=== PATIENT | male | born 1955 | race Caucasian/White ===

== ENCOUNTER 2019-03-11 10:14 | Inpatient (IN) ==
[2019-03-11] MEDS ORDERED: Pregabalin 75 MG CAPSULE PO ONE (10:41)
[2019-03-11] MEDS ORDERED: Famotidine 20 MG/2 ML VIAL IVP ONE (10:41)
[2019-03-11] MEDS ORDERED: Albuterol 2.5 MG/3 ML NEBULIZER IH ONE (10:42)
[2019-03-11] MEDS ORDERED: CeFAZolin Syr 3,000MG/30 ML 3,000 MG/30 ML SYRINGE IVPB ONE (10:42)
[2019-03-11] MEDS ORDERED: Acetaminophen IV 1,000 MG/100 ML INFUS..BTL IVPB ONE (10:42)
[2019-03-11] MEDS ORDERED: traMADol 50 MG TABLET PO ONE (10:42)
[2019-03-11] MEDS ORDERED: Ringers Solution, Lactated 1,000 ML IVC SCH ×2 (10:45)
--- NOTE | 2019-03-11 11:35 | Anesthesia Evaluation PreOp ---
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, on coumadin) Pulmonary History: JEAN Dx, Other (Home oxygen at night, on BiPap) LETTUCE CUTTER History: Denies Any Significant HX Other Medical History: Diabetes Type II, GERD, Other (Super Morbid Obesity) Anesthesia History: No Prior Anesthetic Complications Alcohol Use: none Drug use: none Medications and Allergies Amitriptyline HCl 25 mg PO QPM 04/17/18 [History] Atorvastatin Calcium [Lipitor] 40 mg PO DAILY 04/17/18 [History] Carvedilol [Coreg] 25 mg PO BID 04/17/18 [History] Cholecalciferol (Vitamin D3) [Vitamin D3] 5,000 unit PO DAILY 04/17/18 [History] Fenofibrate Nanocrystallized [Fenofibrate] 145 mg PO DAILY 04/17/18 [History] Furosemide [Lasix] 40 mg PO DAILY 04/17/18 [History] Multivitamin [Multivitamins] 1 each PO DAILY 04/17/18 [History] Omeprazole [PriLOSEC] 40 mg PO DAILY 04/17/18 [History] Testosterone [Androgel] 10 gm TD DAILY 04/17/18 [History] Ascorbic Acid [Vitamin C] 500 mg PO DAILY 07/15/18 [History] Lisinopril [Zestril] 5 mg PO DAILY 07/15/18 [History] Glyburide/Metformin HCl [Glyburide-Metformin 5-500 mg] 1 tab PO QPM 09/24/18 [History] Glyburide/Metformin HCl [Glyburide-Metformin 5-500 mg] 2 tab PO QAM 09/24/18 [History] Liraglutide [Victoza 2-Jose Cruz] 3 mg SQ Q48H 09/24/18 [History] Metformin HCl 500 mg PO QPM 09/24/18 [History] Pioglitazone HCl [Actos] 45 mg PO DAILY 09/24/18 [History] Polyethylene Glycol 3350 [MiraLAX] 17 gm PO DAILY PRN 09/24/18 [History] Aspirin Enteric Coated [Aspirin EC] 81 mg PO DAILY 11/17/18 [History] Dapagliflozin Propanediol [Farxiga] 5 mg PO DAILY 11/17/18 [History] Warfarin [Coumadin] 5 mg PO MOWE 11/17/18 [History] Ferrous Sulfate [Iron] 325 mg PO DAILY 03/11/19 [History] Oglesby-3/Dha/Epa/Fish Oil [Fish Oil 1,000 mg Softgel] 1 cap PO DAILY 03/11/19 [History] Warfarin [Coumadin] 7.5 mg PO SUTUTHFRSA 03/11/19 [History] Allergy/AdvReac Type Severity Reaction Status Date / Time No Known Allergies Allergy Verified 03/11/19 11:05 - Meds/Allergy Pre-op Review Medications Reviewed: Yes Allergies Reviewed: Yes Beta Blockers on Current Med List: Yes (Coreg today 0800) Anesthesia Results - Labs Laboratory Tests 09/25/18 01/19/19 02/06/19 02:28 14:21 10:21 Hgb 10.4 L Hct 34.8 L Plt Count 531 H INR 1.3 Sodium 133 L Potassium BUN 21 Creatinine 1.03 03/08/19 15:15 Hgb Hct Plt Count INR Sodium Potassium 4.0 BUN Creatinine - Imaging EKG: report reviewed (SR) Additional studies: ECHO 2019 EF 55% Anesthesia Exam O2 Sat Height 1.85 m Height 1.85 m Weight 172.365 kg Weight 172.365 kg O2 Sat by Pulse Oximetry 94 O2 Sat by Pulse Oximetry 94 Vital Signs Temp Pulse Resp BP Pulse Ox 97.7 F 85 18 103/53 94 03/11/19 11:01 03/11/19 11:01 03/11/19 11:01 03/11/19 11:01 03/11/19 11:01 Height: 6'1 Weight: 380 lbs NPO (# of Hours): MN Pain Scale: 0 - HEENT Pupil (Motor): Pupils equal, EOMI Mallampati: II Teeth: Normal Oral Opening: Greater than 3 - LETTUCE CUTTER LOC: Oriented LETTUCE CUTTER Motor: Normal RUE, Normal LUE, Normal RLE, Normal LLE, Normal Face LETTUCE CUTTER Sensory: Normal: RUE, LUE, RLE, LLE, Face - Cardiac Rhythm: Regular Murmur: None JVD: No Carotid Bruit: No - Pulmonary Breath Sounds: bilateral Clear Respiratory Effort: Symmetrical Anesthesia Assess/Plan ASA Score: 3 (MO HTN CAD JEAN DM DVT Factor V Leiden) Level of consciousness: Cooperative, Oriented Anesthetic Plan: General Monitoring Plan: Standard Monitors Recovery Plan: PACU (Discussed GA, agrees to proceed)
[2019-03-11] MEDS ORDERED: *HR* Promethazine 25 MG/ML VIAL IVP PRN (11:42)
[2019-03-11] MEDS ORDERED: Ondansetron 4 MG/2 ML VIAL IVP ONE (11:42)
[2019-03-11] MEDS ORDERED: *HR* OxyCODONE Immed Rel 5 MG TABLET PO PRN (11:42)
[2019-03-11] MEDS ORDERED: *HR* HYDROmorphone (PF) 1 MG/ML SYRINGE IVP PRN (11:42)
[2019-03-11] MEDS ORDERED: Dexamethasone 4 MG/ML VIAL ONE (11:51)
--- NOTE | 2019-03-11 12:27 | History & Physical Report ---
Date of Encounter: 03/11/19 Time of Encounter: 12:10 24 Hour HP Update - Instructions Instructions: If the History and Physical is less than 30 days old and was completed prior to A.M. admission and or procedure and has NOT been updated on calendar day of procedure please complete this update prior to performing procedure. - Update Patient reports changes in Medical Condition: No Changes in examination, assessment, or condition: No Changes in Medication: No Preop tests/diagnostics Reviewed: Yes Surgery Remains Indicated: Yes Consent for Planned Operative Procedure(s) Verified: Yes - Attending Attestation proceed
[2019-03-11] MEDS ORDERED: Bupivacaine/EPI 1:200k 0.25%PF 30 ML VIAL ONE (12:37)
[2019-03-11] MEDS ORDERED: D5% in Water 1,000 ML IVC PRN (12:47)
[2019-03-11] MEDS ORDERED: Dextrose Gel 15 GM/37.5 ML TUBE PO PRN ×2 (12:47)
[2019-03-11] MEDS ORDERED: *HR* Dextrose 50 % in Water (Syg) 50 ML SYRINGE IVP PRN (12:47)
[2019-03-11] MEDS ORDERED: *HR* Propofol 200 MG/20 ML VIAL IVP ONE (13:09)
[2019-03-11] MEDS ORDERED: Warfarin perPT PO PRN (13:30)
[2019-03-11] MEDS ORDERED: *HR* PHENYLEPHRINE 1,000 MCG/10 ML SYRINGE IVP ONE (13:38)
[2019-03-11] MEDS ORDERED: EPHEDrine 50 MG/ML VIAL ONE (13:48)
--- NOTE | 2019-03-11 15:31 | Operative Note ---
Date of procedure: 03/11/19 Pre-op diagnosis: right foot charcot, failed hardware, Post-op diagnosis: same Procedure: Application of multiplane external fixator right LE Fusion of the talonavicular joint with osteotomy Fusion of the calcaneocuboid joint with osteotomy Removal of hardware Implants: SEAL ex-fix Complications: none Anesthesia: GETA Local Anesthetics: 0.25% Sensorcaine HCL with Epinephrine 1:200,000 SubQ (cc) Surgeon: Daniel Barahona Was there an radiology physician assistant present: No Estimated blood loss (cc): 15 Tourniquet Time (Minutes): 109 Specimen: none Condition: stable Disposition: PACU Procedure in Detail: 63 year old diabetic male with right charcot arthropathy and previous surgery being brought to the operating room for the above procedures in an effort to try to stabilize his right foot. His left foot had significant motion and collapse through the hindfoot and ankle. Nature of the procedure, risks versus benefits potential complications consequences of surgery and his condition discussed at length. No guarantees were made that his limb would be salvageable and it was explained to the patient this is a staged procedure he is going to require multiple surgical procedures in an effort to try to salvage his foot if it is even possible. It was explained to the patient that he could lose his leg. All questions have been answered and the informed consent was signed. Patient was taken from the preoperative holding area and placed on the operating room table in the supine position. The right foot was scrubbed prepped and draped in the usual sterile fashion and thigh tourniquet was inflated to 300 mmHg and the following procedures began. Removal of right foot hardware. C-arm was utilized to confirm the location of the hardware which was put in from previous surgery. An incision was made medially and blunt dissection was carried out down to the level of the bone and the head of the screw was found in the navicular and was removed without i ncident. A separate incision was made on the dorsum of the midfoot and blunt dissection carried out down the level of the head of the screw which was then removed without incident. Attention was then directed laterally between the fourth and fifth metatarsals were an incision was made blunt dissection carried out down to the level of bone where the screw going from the metatarsal into the cuboid was found and removed without incident. The calcaneal screw was left alone as it was not interfering the the surgery. Right Talonavicular and Calcaneocuboid joint arthrodesis. Attention was then d irected back medially and the incision was extended proximally and distally. Soft tissue was freed from the bone across the talonavicular articulations and the sagittal saw blade was use to resect a wedge of bone through the midfoot and the midfoot was able to then be manipulated more in line with the hindfoot and it was pinned with 0.62 mm K wires. C-arm was utilized to confirm position and alignment. There was good apposition of the talonavicular and cc joint fusion zones. The external fixation frame was then assembled on the back table and the next procedure began. Application of multiplane external fixator right lower extremity. The external fixator was assembled and applied to the patient's right lower extremity being able to fit at least two finger breadths circumferentially around his leg and foot. Two wires were thrown distally in the calcaneus and tensioned appropriately. Next attention was directed to the proximal ring where a two skinny wires were thrown into the tibia securing his leg to the frame. Two skinny wire were then thrown in the middle ring and wires were tensioned appropriately. Two calcaneal wires were thrown and a wire across the lateral column of the foot capturing the cuboid and stabilizing the lateral column. Wires were tensioned appropriately. Wires were then thrown across the metatarsals and midfoot and walked backwards to create tension, wires were tensioned appropriately to maintain reduced position of the forefoot relative to the midfoot/rear foot. The patient's right foot clinically was stabilized with the multiplane external fixator. Marcaine with epinephrine was then injected around the pin sites. Xeroform was applied around all pin sites as well as 4x4 gauze, abdominal pads, kirt, kerlix and JONO wraps. C-arm was utilized intraoperatively to confirm placement and alignment of the wires and pins. The tourniquet was deflated prior to application of the bandages and adequate hemostasis was present. Patient tolerated the anesthesia and the procedure well and was escorted to the recovery room with vital signs stable and vascular status intact to the right foot. Instructed to remain non-wb to the right lower extremity. Patient admitted to observation on the floor.
--- NOTE | 2019-03-11 16:21 | Anesthesia Evaluation Post Op ---
Date of Encounter: 03/11/19 Time of Encounter: 16:20 - Vital Signs Vital Signs: Vital Signs/O2 Sat, Most Current Temp Pulse Resp BP Pulse Ox 97.3 F L 61 18 144/67 96 03/11/19 16:19 03/11/19 16:19 03/11/19 16:19 03/11/19 16:19 03/11/19 16:19 - Lungs Lungs: Clear Ascult./Percussion - Airway Airway: Non-obstructed - Cardiovascular Regular Rate - Mental Status Mental Status: Alert & Oriented, Answers Appropriately - Pain Pain Scale: 0 Pain Scale used: Numeric (1 - 10) - Nausea Vomiting Nausea Vomiting: Not Present - Hydration Hydration: Ice chips, Has not voided - Discharge PostOp Status: Transfer Patient to floor
[2019-03-11 17:36] LABS: INR 2.2; Prothrombin Time 25.1 Seconds (9.4-12.1)
[2019-03-11] MEDS: *HR* Metformin 500 MG TABLET PO SCH (17:53)
[2019-03-11] MEDS: *HR* GlyBURIDE 5 MG TABLET PO SCH (17:54)
[2019-03-11] MEDS ORDERED: *HR* Warfarin 7.5 MG TABLET PO SCH (18:00)
[2019-03-11] MEDS: Insulin LISPRO 300 UNITS/3 ML VIAL SQ SCH (18:01)
[2019-03-11] MEDS: ceFAZolin 3,000 MG in D5% in Water 100 ML IVPB SCH (18:05)
--- NOTE | 2019-03-11 19:27 | Podiatry Progress Note ---
Date of Encounter: 03/11/19 Time of Encounter: 06:40 Subjective Interval history: s/p charcot reconstruction right foot. patient resting comfortably. says pain is controlled. understands to remain non-wb to the right LE. foot in good alignment. ex-fix in place with no pistoning. c/w with coumadin. f/u PT, OT and social work. when he does leave he will need twice weekly dressing changes consisting of xeroform around the pin sites, 4x4 gauze, kirt and JONO wraps. Objective - Vital Signs Vital Signs: Vital Signs Temp Pulse Resp BP Pulse Ox 03/11/19 18:04 98.1 F 61 16 120/74 99 03/11/19 17:26 98.0 F 61 14 133/76 99 03/11/19 17:04 97.7 F 61 16 147/71 100 03/11/19 16:47 97.8 F 65 20 134/79 100 03/11/19 16:19 97.3 F L 61 18 144/67 96 03/11/19 16:09 61 18 142/69 97 03/11/19 15:59 61 16 135/67 97 03/11/19 15:49 97.4 F L 61 16 123/84 100 03/11/19 11:01 97.7 F 85 18 103/53 94 Intake and Output 03/11/19 03/11/19 03/11/19 07:59 15:59 23:59 Intake Total 0 / 0 Output Total 15 / 15 Balance -15 / -15 Intake: IV Fluids 0 / 0 Ancef Syringe 3,000 MG/30 ML 3, 0 / 0 000 mg In 30 ml @ 200 mls/hr IVPB PREOP ONE Rx#:[id number] Output: Estimated Blood Loss 15 / 15 Other: Weight 172.365 kg Blood Glucose* 164 168 Patient Weight 03/11/19 23:59 Weight 172.365 kg - Lab Labs: Abnormal lab results PT 25.1 Seconds (9.4-12.1) H 03/11/19 17:06 POC Glucose 178 mg/dL (70-99) H 03/11/19 10:24 Consult Discharge Plan - Plan Referrals: Ed Holley MD [Primary Care Provider] -
[2019-03-12] MEDS: ceFAZolin 3,000 MG in D5% in Water 100 ML IVPB SCH (02:18)
[2019-03-12 05:21] LABS: INR 2.7; Prothrombin Time 30.6 Seconds (9.4-12.1)
[2019-03-12] MEDS: Insulin LISPRO 300 UNITS/3 ML VIAL SQ SCH ×3 (08:23→16:59)
[2019-03-12] MEDS: Fenofibrate 54 MG TABLET PO SCH (08:23)
[2019-03-12] MEDS: *HR* Pioglitazone 45 MG TABLET PO SCH (08:23)
[2019-03-12] MEDS: *HR* GlyBURIDE 5 MG TABLET PO SCH ×2 (08:23→18:09)
[2019-03-12] MEDS: Furosemide 40 MG TABLET PO SCH (08:23)
[2019-03-12] MEDS: *HR* Metformin 500 MG TABLET PO SCH ×2 (08:23→18:09)
[2019-03-12] MEDS: Cholecalciferol (D-3) 1,000 UNIT (25MCG) TABLET PO SCH (08:23)
[2019-03-12] MEDS: Aspirin 81 MG TAB.CHEW PO SCH (08:23)
[2019-03-12] MEDS: Ascorbic Acid 500 MG TABLET PO SCH (08:23)
--- NOTE | 2019-03-12 13:44 | Podiatry Progress Note ---
Date of Encounter: 03/12/19 Time of Encounter: 13:40 - Assessment and Plan (1) Charcot ankle Current Visit: Yes Status: Acute Assessment: S/P Application of multiplane external fixator right LE, Fusion of the talonavicular joint with osteotomy, Fusion of the calcaneocuboid joint with osteotomy, and Removal of hardware with Dr. Barahona on 03/11/19 Plan: Admit Inpatient Pending ECF/swing bed placement, social work consulted Awaiting PT/OT recommendations Hospitalist consulted for medical management, patient with history of a.fib on coumadin, COPD, DM, and HTN Continue NWB status RLE Will need discharged with norco, zofran, and doxycycline x 14 days when ready for discharge Qualifiers: Qualified Code(s): M14.671 - Charcot's joint, right ankle and foot Subjective Principal diagnosis: Charcot foot Interval history: Patient awake in bed. Alert and oriented x 3. Denies fevers, chills, nausea, vomiting, or diarrhea. Reports pain when working with therapy to sides/ribcage. States it hurts when he coughs. Denies any calf pain, chest pain, or shortness of breath. Denies placing weight to RLE. States therapy is to stop by in the AM to work with slide board. Reports he would prefer to go to rehab as he does not think he can manage at home. No other questions or concerns at this time. Objective - Vital Signs Vital Signs: Vital Signs Temp Pulse Resp BP Pulse Ox 03/12/19 12:41 97.7 F 80 18 138/59 97 03/12/19 07:00 97.5 F L 60 18 105/65 98 03/12/19 04:46 98.1 F 60 16 118/62 93 03/12/19 00:17 97.4 F L 63 18 135/63 93 03/11/19 18:04 98.1 F 61 16 120/74 99 03/11/19 17:26 98.0 F 61 14 133/76 99 03/11/19 17:04 97.7 F 61 16 147/71 100 03/11/19 16:47 97.8 F 65 20 134/79 100 03/11/19 16:19 97.3 F L 61 18 144/67 96 03/11/19 16:09 61 18 142/69 97 07/25/19 15:59 61 16 135/67 97 03/11/19 15:49 97.4 F L 61 16 123/84 100 Intake and Output 03/11/19 03/12/19 03/12/19 23:59 07:59 15:59 Intake Total 460 / 460 600 / 1680 1080 / 1680 Output Total 300 / 315 950 / 950 Balance 160 / 145 -350 / 730 1080 / 730 Intake: IV Fluids 100 / 100 Ancef 3,000 MG In Dextrose 5% 100 / 100 100 ML @ 200 mls/hr IVPB Q8H DIPESH Rx#:[id number] Oral 360 / 360 600 / 1680 1080 / 1680 Output: Urine 300 / 300 950 / 950 Other: Meal Dinner Lunch Percent of Meal Consumed 100% 100% Weight 172.4 kg Blood Glucose* 256 174 Patient Weight 03/12/19 23:59 Weight 172.4 kg - Exam Exam: Constitiutional: Alert and oriented x 3. Well nourished. No acute distress noted Vascular: RLE ex-fix in place, CFT < 3 seconds to all digits, no calf pain with squeeze Neurologic: Diminished sensation to touch Dermatologic: External fixator to RLE. Foot in good alignment. No strike through noted. Dressing in tact. No edema or erythema noted above or below dressing Musculoskeletal: Able to move all extremities - Lab Labs: Abnormal lab results PT 30.6 Seconds (9.4-12.1) H 03/12/19 04:54 POC Glucose 174 mg/dL (70-99) H 03/12/19 11:17 - VTE Reasons for not Prescribing Prophylaxis: Not indicated-Anticoagulated or INR therapeutic Consult Discharge Plan - Plan Referrals: Ed Holley MD [Primary Care Provider] -
--- NOTE | 2019-03-12 14:27 | Internal Medicine Consult Note ---
Date of Encounter: 03/12/19 Time of Encounter: 14:21 - Assessment and Plan (1) Charcot ankle Current Visit: Yes Status: Acute Assessment and plan: Had a procedure by podiatry on 03/11. PT/OT recommended inpatient rehabilitation/swing bed, however, he was denied by insurance, psychotherapist social worker currently work, case to solve the issue. Right foot neurovascularly intact. Podiatry following. Qualifiers: Qualified Code(s): M14.671 - Charcot's joint, right ankle and foot (2) Deep vein thrombosis of lower extremity Current Visit: No Status: Acute Assessment and plan: Continue Coumadin, pharmacy to dose. Qualifiers: Affected thrombotic vein of extremity: popliteal Chronicity: acute Laterality: left Qualified Code(s): I82.432 - Acute embolism and thrombosis of left popliteal vein (3) Diabetes Current Visit: No Status: Chronic Assessment and plan: Hold all oral agents, continue insulin with sliding scale. Qualifiers: Diabetes mellitus type: type 2 Diabetes mellitus half-way insulin use: without half-way use Diabetes mellitus complication status: with neurologic complications Diabetes mellitus complication detail: with unspecified neuropathy Qualified Code(s): E11.40 - Type 2 diabetes mellitus with diabetic neuropathy, unspecified (4) HTN (hypertension) Current Visit: No Status: Chronic Assessment and plan: BP controlled, continue home medications. Qualifiers: Hypertension type: essential hypertension Qualified Code(s): I10 - Essential (primary) hypertension (5) Afib Current Visit: No Status: Chronic Assessment and plan: Rate controlled, continue current treatment including Coumadin. Qualifiers: Atrial fibrillation type: chronic Qualified Code(s): I48.2 - Chronic atrial fibrillation (6) Morbid obesity Current Visit: No Status: Acute Assessment and plan: Weight control discussed with patient. (7) Sleep apnea Current Visit: No Status: Chronic Assessment and plan: CPAP at night. Qualifiers: Sleep apnea type: unspecified type Qualified Code(s): G47.30 - Sleep apnea, unspecified (8) DVT prophylaxis Current Visit: Yes Status: Acute Assessment and plan: Patient on Coumadin. - Time Spent With Patient Total time spent is greater than 50% in coordination of care (as documented) at patient's floor/unit and/or counseling patient: Greater than 35 minutes Internal Medicine - CN: HPI - Data of Consult Patient: new to practice Requesting Physician: Daniel Barahona DPM - Consult Narrative History of present illness: Mr. Barth is a 63 year old male with past medical history of diabetes mellitus, atrial fibrillation, hypertension, hyperlipidemia, and DVT who was admitted by his correspondence renew clerk because of right foot charcoal arthropathy, failed initial surgical intervention. He had right foot surgery with hardware implanted in 2017. 2 weeks later, he suffered severe pain from the surgical site. He has tried physical therapy and pain medications without complete resolution of pain. Decision was made to perform another surgical procedure, hoping to resolve the pain. He underwent the application of multiplane external fixator on the right lower extremity, fusion of the the talonavicular joint with osteotomy, fusion of the calcaneocuboid joint with osteotomy, and removal of hardware on 03/11/2019. Hospitalist was consulted after the procedure for medical management. Patient is currently recovering from anesthesia. He reported absence of fever, chills, or night sweats. He has no chest pain, shortness breath, lightheadedness, or syncope. He has history of atrial fibrillation and DVT, takes Coumadin prior to the surgery. He also has history of diabetes mellitus and currently on multiple oral agent but not on insulin. His last hemoglobin A1c about 7. Past Med Surg Social Fam HX - Past Medical History Medical history: arthritis, atrial fibrillation, COPD, coronary artery disease, DVT, diabetes, GERD, hypertension, other Additional medical history: Irregular heart beat--Pacemaker, sick sinus syndrome. Sleep Apnea. neuropathy. iron deficiency anemia. screws and plate removed from right foot. charcot ankle, right and foot, failed hardware. paroxsymal atrial fibrillation. factor V leiden carrier. history of DVT of lower extremity, popliteal vein. dizziness. onychomycosis. left shoulder impingement syndrome. osteoarthritis of knees. DJD. vitamin D deficiency Psychiatric history: no psych history - Past Surgical History Surgical History: appendectomy, cataract, herniorrhaphy, knee replacement, orthopedic, other, pacemaker/AICD, other, pacemaker Additional surgical history: lt and rt knee replacement. appy. rt ft times 4. pacemaker. heart cath times 2. bilateral cataract removal/intraoccular lens placement. triple arthrodesis x3. left shoulder surgery. cardiac cath. laparaoscopic appendectomy. open umbilical hernia repair. colonoscopyX2. R foot surgery. blood clots left leg. left shoulder surgery-2008. Heart cath- 2007, Pacemaker insertion-2010 - Social History Smoking Status: Never smoker Smokeless Tobacco Status: Yes Alcohol use: none Drug use: none - Family History Mother Living Status: Hx Family Cardiac Disorders: (CHF) Hx Family Cancer: Yes (BREAST) Father Hx Family Cardiac Disorders: Yes (PR, PACER) Hx Family Cancer: Yes Hx Family Endocrine Disorder: Yes (DMII) Review of systems: REVIEW OF SYSTEMS: CONSTITUTIONAL: No weight loss, fever, chills, weakness or fatigue. HEENT: Eyes: No visual loss, blurred vision, double vision or yellow sclerae. Ears, Nose, Throat: No hearing loss, sneezing, congestion, runny nose or sore throat. SKIN: No rash or itching. CARDIOVASCULAR: No chest pain, chest pressure or chest discomfort. No palpitations or edema. RESPIRATORY: No shortness of breath, cough or sputum. GASTROINTESTINAL: No anorexia, nausea, vomiting or diarrhea. No abdominal pain or blood. GENITOURINARY: No dysuria, urgency, or frequency. NEUROLOGICAL: No headache, dizziness, syncope, paralysis, ataxia, numbness or tingling in the extremities. No change in bowel or bladder control. MUSCULOSKELETAL: No muscle, back pain, joint pain or stiffness. HEMATOLOGIC: No anemia, bleeding or bruising. LYMPHATICS: No enlarged nodes. No history of splenectomy. PSYCHIATRIC: No history of depression or anxiety. ENDOCRINOLOGIC: No reports of sweating, cold or heat intolerance. No polyuria or polydipsia. Internal Medicine - CN: Meds Amitriptyline HCl 25 mg PO QPM 04/17/18 [History] Atorvastatin Calcium [Lipitor] 40 mg PO DAILY 04/17/18 [History] Carvedilol [Coreg] 25 mg PO BID 04/17/18 [History] Cholecalciferol (Vitamin D3) [Vitamin D3] 5,000 unit PO DAILY 04/17/18 [History] Fenofibrate Nanocrystallized [Fenofibrate] 145 mg PO DAILY 04/17/18 [History] Furosemide [Lasix] 40 mg PO DAILY 04/17/18 [History] Multivitamin [Multivitamins] 1 each PO DAILY 04/17/18 [History] Omeprazole [PriLOSEC] 40 mg PO DAILY 04/17/18 [History] Testosterone [Androgel] 10 gm TD DAILY 04/17/18 [History] Ascorbic Acid [Vitamin C] 500 mg PO DAILY 07/15/18 [History] Lisinopril [Zestril] 5 mg PO DAILY 07/15/18 [History] Glyburide/Metformin HCl [Glyburide-Metformin 5-500 mg] 1 tab PO QPM 09/24/18 [History] Glyburide/Metformin HCl [Glyburide-Metformin 5-500 mg] 2 tab PO QAM 09/24/18 [H istory] Liraglutide [Victoza 2-Jose Cruz] 3 mg SQ Q48H 09/24/18 [History] Metformin HCl 500 mg PO QPM 09/24/18 [History] Pioglitazone HCl [Actos] 45 mg PO DAILY 09/24/18 [History] Polyethylene Glycol 3350 [MiraLAX] 17 gm PO DAILY PRN 09/24/18 [History] Aspirin Enteric Coated [Aspirin EC] 81 mg PO DAILY 11/17/18 [History] Dapagliflozin Propanediol [Farxiga] 5 mg PO DAILY 11/17/18 [History] Warfarin [Coumadin] 5 mg PO MOWE 11/17/18 [History] Ferrous Sulfate [Iron] 325 mg PO DAILY 03/11/19 [History] [place]-3/Dha/Epa/Fish Oil [Fish Oil 1,000 mg Softgel] 1 cap PO DAILY 03/11/19 [History] Warfarin [Coumadin] 7.5 mg PO SUTUTHFRSA 03/11/19 [History] Allergy/AdvReac Type Severity Reaction Status Date / Time No Known Allergies Allergy Verified 03/11/19 11:05 Hospitalist - CN: Exam - Constitutional Vitals: Temp Pulse Resp BP Pulse Ox 97.7 F 80 18 138/59 97 03/12/19 12:41 03/12/19 12:41 03/12/19 12:41 03/12/19 12:41 03/12/19 12:41 General appearance IM: Present: A&O X 3 Exam: PHYSICAL EXAMINATION: GENERAL APPEARANCE: The patient is alert, oriented and in no acute distress. HEENT: Head is normocephalic. The sinuses are nontender. Pupils are equal and reactive. The nares are patent. Oropharynx clear without lesions. NECK: Supple without lymphadenopathy. HEART: Regular rate and rhythm. LUNGS: No crackles or wheezes are heard. ABDOMEN: Soft, nontender, nondistended with good bowel sounds heard. Inguinal area is normal. EXTREMITIES: right foot covered with dressing and hardwares. Color of toes are normal and pink. He moves all the toes without pain. NEUROLOGICAL: Gross nonfocal. SKIN: Warm and dry without any rash. Internal Medicine - CN: Reslt - ABG Interpretation ABG results: PT/INR, D-dimer PT 30.6 Seconds (9.4-12.1) H 03/12/19 04:54 - Impressions Impressions Fluoroscopy 03/11/19 13:20 IMPRESSION: Please see operative report for further details. D/ / Mak Malik MD / Mak Malik MD Interpreting Provider: aMk Malik MD Foot X-Ray 03/11/19 13:20 IMPRESSION: Please see operative report for further details. D/ / Mak Malik MD / Mak Malik MD Interpreting Provider: Mak Malik MD Consult Discharge Plan - Plan Referrals: Ed Holley MD [Primary Care Provider] -
--- NOTE | 2019-03-12 15:29 | Physician Discharge Referral ---
Home Health/Hosp Referral Info Transfer to: Home Health Provider in Charge Post Discharge: PCP - Diagnosis (1) Charcot ankle Priority: Primary Status: Acute - Respiratory Orders Smoking Cessation: Smoking cessation has been advised. For more information, call the [place] Tobacco Quit Line at 0-926-YPPS-NOW. - Dressing/Wound Care Site: right lower extremity Type of Dressing/Treatments w/Frequency: Xeroform around pin sites, 4x4 gauze, kirt, kerlix, JONO wrap changed twice weekly - Diet/Nutrition Diet/Nutrition: List: Diabetic diet Cardiac diet - Activity Activity: List: non-weight bearing right lower extremity - Transfer Medications Home Medications: Amitriptyline HCl 25 mg PO QPM 04/17/18 [History] Atorvastatin Calcium [Lipitor] 40 mg PO DAILY 04/17/18 [History] Carvedilol [Coreg] 25 mg PO BID 04/17/18 [History] Cholecalciferol (Vitamin D3) [Vitamin D3] 5,000 unit PO DAILY 04/17/18 [History] Fenofibrate Nanocrystallized [Fenofibrate] 145 mg PO DAILY 04/17/18 [History] Furosemide [Lasix] 40 mg PO DAILY 04/17/18 [History] Multivitamin [Multivitamins] 1 each PO DAILY 04/17/18 [History] Omeprazole [PriLOSEC] 40 mg PO DAILY 04/17/18 [History] Testosterone [Androgel] 10 gm TD DAILY 04/17/18 [History] Ascorbic Acid [Vitamin C] 500 mg PO DAILY 07/15/18 [History] Lisinopril [Zestril] 5 mg PO DAILY 07/15/18 [History] Glyburide/Metformin HCl [Glyburide-Metformin 5-500 mg] 1 tab PO QPM 09/24/18 [H istory] Glyburide/Metformin HCl [Glyburide-Metformin 5-500 mg] 2 tab PO QAM 09/24/18 [History] Liraglutide [Victoza 2-Jose Cruz] 3 mg SQ Q48H 09/24/18 [History] Metformin HCl 500 mg PO QPM 09/24/18 [History] Pioglitazone HCl [Actos] 45 mg PO DAILY 09/24/18 [History] Polyethylene Glycol 3350 [MiraLAX] 17 gm PO DAILY PRN 09/24/18 [History] Aspirin Enteric Coated [Aspirin EC] 81 mg PO DAILY 11/17/18 [History] Dapagliflozin Propanediol [Farxiga] 5 mg PO DAILY 11/17/18 [History] Warfarin [Coumadin] 5 mg PO MOWE 11/17/18 [History] Ferrous Sulfate [Iron] 325 mg PO DAILY 03/11/19 [History] [place]-3/Dha/Epa/Fish Oil [Fish Oil 1,000 mg Softgel] 1 cap PO DAILY 03/11/19 [History] Warfarin [Coumadin] 7.5 mg PO SUTUTHFRSA 03/11/19 [History] Allergies/Adverse Reactions: Allergy/AdvReac Type Severity Reaction Status Date / Time No Known Allergies Allergy Verified 03/11/19 11:05 Certification: Further, I certify that my clinical findings support that this patient is homebound (i.e. absences from home require considerable and taxing effort and are for medical reasons or rastafari services or infrequently or short duration when for other reasons) because: Attestation: My signature below is to certify that this patient is under my care and that I, or nurse practitioner, or a physician's neurology physician assistant working with me, has a hzzs-co-wehl encounter with this patient.
--- NOTE | 2019-03-12 15:36 | Physician Discharge Referral ---
ExtendedCare Referral Info Transfer To: F Provider in Charge after Transfer: PCP Institutional Level of Care: Skilled - Diagnosis (1) Charcot ankle Priority: Primary Status: Acute Expected Duration of Placement: 6 weeks Prognosis: Fair Aware of Diagnosis: Patient, Family Aware of Prognosis: Patient, Family - Transfer Medications Home Medications: Amitriptyline HCl 25 mg PO QPM 04/17/18 [History] Atorvastatin Calcium [Lipitor] 40 mg PO DAILY 04/17/18 [History] Carvedilol [Coreg] 25 mg PO BID 04/17/18 [History] Cholecalciferol (Vitamin D3) [Vitamin D3] 5,000 unit PO DAILY 04/17/18 [History] Fenofibrate Nanocrystallized [Fenofibrate] 145 mg PO DAILY 04/17/18 [History] Furosemide [Lasix] 40 mg PO DAILY 04/17/18 [History] Multivitamin [Multivitamins] 1 each PO DAILY 04/17/18 [History] Omeprazole [PriLOSEC] 40 mg PO DAILY 04/17/18 [History] Testosterone [Androgel] 10 gm TD DAILY 04/17/18 [History] Ascorbic Acid [Vitamin C] 500 mg PO DAILY 07/15/18 [History] Lisinopril [Zestril] 5 mg PO DAILY 07/15/18 [History] Glyburide/Metformin HCl [Glyburide-Metformin 5-500 mg] 1 tab PO QPM 09/24/18 [History] Glyburide/Metformin HCl [Glyburide-Metformin 5-500 mg] 2 tab PO QAM 09/24/18 [History] Liraglutide [Victoza 2-Jose Cruz] 3 mg SQ Q48H 09/24/18 [History] Metformin HCl 500 mg PO QPM 09/24/18 [History] Pioglitazone HCl [Actos] 45 mg PO DAILY 09/24/18 [History] Polyethylene Glycol 3350 [MiraLAX] 17 gm PO DAILY PRN 09/24/18 [History] Aspirin Enteric Coated [Aspirin EC] 81 mg PO DAILY 11/17/18 [History] Dapagliflozin Propanediol [Farxiga] 5 mg PO DAILY 11/17/18 [History] Warfarin [Coumadin] 5 mg PO MOWE 11/17/18 [History] Ferrous Sulfate [Iron] 325 mg PO DAILY 03/11/19 [History] [place]-3/Dha/Epa/Fish Oil [Fish Oil 1,000 mg Softgel] 1 cap PO DAILY 03/11/19 [History] Warfarin [Coumadin] 7.5 mg PO SUTUTHFRSA 03/11/19 [History] Allergies/Adverse Reactions: Allergy/AdvReac Type Severity Reaction Status Date / Time No Known Allergies Allergy Verified 03/11/19 11:05 - Respiratory Orders Smoking Cessation: Smoking cessation has been advised. For more information, call the [place] Tobacco Quit Line at 6-085-EETB-NOW. - Advance Directives Code Status: Full Code - Mobility Orders Other (nonweight bearing right lower extremity) - Rehabiliation Orders Rehab Potential: Fair Rehab Orders: Evaluation for Physical Therapy Other: non-weight bearing right lower extremity - Treatments List/Other: Xeroform to pin sites, 4x4 gauze, kirt, kerlix and JONO wrap changed twice weekly. - Diet Orders No Added Salt (AMADNA), No Concentrated Sweets, Cardiac CERTIFICATION: I certify that the transfer of the above named patient to an Extended Care Facility is necessary for the continuing treatment of the diagnosis listed. The above information is true and accurate reflection of patient's current condition. Confidential - Redisclosure prohibited without a patient's written consent.
[2019-03-13] MEDS: Acetaminophen 325 MG TABLET PO PRN ×2 (03:19→21:01)
[2019-03-13 06:46] LABS: Basophils % 0.4 %; Eosinophils # 0.2 K/mcL (0.0-0.6); Eosinophils % 1.8 %; Hematocrit 34.8 % (37.5-50.1); Hemoglobin 10.4 g/dL (12.9-16.9); Immature Granulocytes % 0.6 % (0-4); Lymphocytes # 1.9 K/mcL (0.6-4.6); Lymphocytes % 17.4 %; Mean Corpuscular HGB Conc 29.9 g/dL (31.6-35.5); Mean Corpuscular Volume 90.4 fL (83.0-100.0); Mean Platelet Volume 9.8 fL (9.4-12.4); Monocytes # 0.9 K/mcL (0.0-1.3); Monocytes % 8.5 %; Neutrophils # 7.8 K/mcL (1.6-8.9); Platelet Count 360 K/mcL (140-400); Red Blood Count 3.85 M/mcL (4.19-5.50); Red Cell Distribution Width 17.7 % (11.5-14.5); Segmented Neutrophils % 71.3 %
[2019-03-13 06:53] LABS: INR 2.4; Prothrombin Time 27.4 Seconds (9.4-12.1)
[2019-03-13 07:03] LABS: BUN/Creatinine Ratio 25 (6-26); Blood Urea Nitrogen 29 mg/dL (8-23); Calcium 10.6 mg/dL (8.6-10.3); Carbon Dioxide 28 mEq/L (23-29); Chloride 100 mEq/L (98-107); Glucose 186 mg/dL (70-105); Osmolality,Calculated 291 (280-300); Potassium 4.2 mEq/L (3.5-5.1); Sodium 135 mEq/L (136-145); eGFR For African Americans > 60 (> 60); eGFR For Non-African Americans > 60 (> 60)
[2019-03-13] MEDS: *HR* Pioglitazone 45 MG TABLET PO SCH (07:58)
[2019-03-13] MEDS: Insulin LISPRO 300 UNITS/3 ML VIAL SQ SCH ×3 (07:58→17:14)
[2019-03-13] MEDS: Aspirin 81 MG TAB.CHEW PO SCH (07:58)
[2019-03-13] MEDS: *HR* Metformin 500 MG TABLET PO SCH ×2 (07:59→17:15)
[2019-03-13] MEDS: Cholecalciferol (D-3) 1,000 UNIT (25MCG) TABLET PO SCH (07:59)
[2019-03-13] MEDS: *HR* GlyBURIDE 5 MG TABLET PO SCH ×2 (07:59→17:15)
[2019-03-13] MEDS: Ascorbic Acid 500 MG TABLET PO SCH (07:59)
[2019-03-13] MEDS: Fenofibrate 54 MG TABLET PO SCH (08:00)
[2019-03-13] MEDS: Furosemide 40 MG TABLET PO SCH (08:00)
--- NOTE | 2019-03-13 13:07 | Internal Med Progress Note ---
Hospitalist Progress Note - Encounter Date of Encounter: 03/13/19 Time of Encounter: 09:35 - Subjective Interval History: In good mood today, denies pain, wants to move around a bit more than he is and is looking forward to more PT this afternoon because he says his neck/shoulders/back are getting stiff. Denies CP, SOB, N/V/D. Awaiting SNF early this coming week. - Exam Vitals: Temp Pulse Resp BP Pulse Ox 98.7 F 66 18 120/66 98 03/13/19 11:47 03/13/19 11:47 03/13/19 11:47 03/13/19 11:47 03/13/19 11:47 Exam: General: NAD, good eye contact, well appearing, obese Thoracic: Normal breath sounds b/l, no wheezing or crackles Cardio: Normal S1 and S2, regular rate and rhythm, no murmurs Abdomen: Soft, nontender, morbidly obese Extremities: Warm, well perfused. Mild edema b/l LE. R foot externally fixed and extensively wrapped Skin: Intact. No rashes, bruises, or ulcers Neuro: Awake, fully oriented. Speech fluent - Assessment and Plan (1) Charcot ankle Current Visit: Yes Status: Acute - Summary of Assessment and Plan Summary of Assessment and Plan: Jason Barth is a 63 M w hx morbid obesity, DM2, HTN, A-Fib and DVT on AC, JEAN, who presented for repeat operation for R Charcot foot requiring external fixation, removal of previous hardware, and fusion of talonavicular and calcaneocuboid joints. Hospitalist consulted for medical management. Charcot foot: s/p surgery 03/11 by podiatry, doing well, working w PT, pain controlled, SW consulted and awaiting insurance for SNF Hypercalcemia: Ca ~10.5-11 on multiple previous checks, vitD and P wnl, with PTH 40 currently which is inappropriately elevated although previous checks showed PTH more appropriately suppressed to 20s. Would consider referral to hyperparathyroid surgeon for additional workup if pt develops any other sequelae of hyperpara such as renal stones DM2: controlled, last A1c 7.1% in 02/2019, continue home PO meds, with additional SSI prn HTN: controlled on home PO meds A-Fib: therapeutic AC on warfarin, rate controlled DVT: AC as above JEAN: home CPAP Morbid obesity: BMI 50 PPx: warfarin as above Activity: NWB RLE FEN: ADA, no MIVF Lines: PIV Code: Full Dispo: anticipate 2-3 days, awaiting insurance for SNF placement Internal Medicine: Result - Labs CBC & Chem 7: 03/13/19 06:03 03/13/19 06:03 Labs: Short CBC 03/13/19 Range/Units 06:03 WBC 11.0 (4.3-11.1) K/mcL Hgb 10.4 L (12.9-16.9) g/dL Hct 34.8 L (37.5-50.1) % Plt Count 360 (140-400) K/mcL Neutrophils # 7.8 (1.6-8.9) K/mcL BMP 03/13/19 06:03 Sodium 135 L Potassium 4.2 Chloride 100 Carbon Dioxide 28 BUN 29 H Creatinine 1.18 Glucose 186 H Calcium 10.6 H - ABG Interpretation ABG results: PT/INR, D-dimer PT 27.4 Seconds (9.4-12.1) H 03/13/19 06:03 - VTE Reasons for not Prescribing Prophylaxis: Not indicated-Anticoagulated or INR therapeutic Consult Discharge Plan - Plan Referrals: Ed Holley MD [Primary Care Provider] - (1) Charcot ankle Qualifiers: Qualified Code(s): M14.671 - Charcot's joint, right ankle and foot
[2019-03-13] MEDS ORDERED: *HR* Warfarin 5 MG TABLET PO ONE (18:00)
[2019-03-14] MEDS: Acetaminophen 325 MG TABLET PO PRN (06:05)
[2019-03-14 08:09] LABS: INR 1.7; Prothrombin Time 19.4 Seconds (9.4-12.1)
[2019-03-14] MEDS: Insulin LISPRO 300 UNITS/3 ML VIAL SQ SCH ×3 (08:22→17:15)
[2019-03-14] MEDS: Fenofibrate 54 MG TABLET PO SCH (08:23)
[2019-03-14] MEDS: Ascorbic Acid 500 MG TABLET PO SCH (08:24)
[2019-03-14] MEDS: *HR* Metformin 500 MG TABLET PO SCH ×2 (08:24→17:15)
[2019-03-14] MEDS: Cholecalciferol (D-3) 1,000 UNIT (25MCG) TABLET PO SCH (08:24)
[2019-03-14] MEDS: *HR* Pioglitazone 45 MG TABLET PO SCH (08:24)
[2019-03-14] MEDS: Aspirin 81 MG TAB.CHEW PO SCH (08:24)
[2019-03-14] MEDS: Furosemide 40 MG TABLET PO SCH (08:25)
[2019-03-14] MEDS: *HR* GlyBURIDE 5 MG TABLET PO SCH ×2 (08:25→17:15)
[2019-03-14 09:20] LABS: Hematocrit 32.3 % (37.5-50.1); Hemoglobin 9.7 g/dL (12.9-16.9); Mean Corpuscular Hemoglobin 26.4 pg (28.0-33.3); Mean Corpuscular Volume 87.8 fL (83.0-100.0); Mean Platelet Volume 9.8 fL (9.4-12.4); Platelet Count 331 K/mcL (140-400); Red Blood Count 3.68 M/mcL (4.19-5.50); Red Cell Distribution Width 17.7 % (11.5-14.5); White Blood Count 11.9 K/mcL (4.3-11.1)
[2019-03-14 09:37] LABS: BUN/Creatinine Ratio 29 (6-26); Blood Urea Nitrogen 33 mg/dL (8-23); Calcium 10.2 mg/dL (8.6-10.3); Carbon Dioxide 22 mEq/L (23-29); Chloride 102 mEq/L (98-107); Glucose 176 mg/dL (70-105); Magnesium 1.6 mg/dL (1.6-2.6); Osmolality,Calculated 288 (280-300); Potassium 3.9 mEq/L (3.5-5.1); Sodium 133 mEq/L (136-145); eGFR For African Americans > 60 (> 60); eGFR For Non-African Americans > 60 (> 60)
--- NOTE | 2019-03-14 10:12 | Internal Med Progress Note ---
Hospitalist Progress Note - Encounter Date of Encounter: 03/14/19 Time of Encounter: 10:09 - Subjective Interval History: Spiked fever x2, yesterday afternoon and again in evening. Given tylenol with improvement. Pt denies SOB or cough, abd pain, N/V, diarrhea, or pain at surgical site. Does mention that his left knee (surgery was on R foot) is starting to swell today, limiting ROM; however this is a chronic cyclical/intermittent phenomenon for which he says he's seen outpatient Ortho and needs knee revision surgery. - Exam Vitals: Temp Pulse Resp BP Pulse Ox 98.4 F 67 18 105/61 93 03/14/19 06:57 03/14/19 06:57 03/14/19 06:57 03/14/19 06:57 03/14/19 06:57 Exam: General: NAD, good eye contact, well appearing, obese, in good spirits Thoracic: Normal breath sounds b/l, no wheezing or crackles Cardio: Normal S1 and S2, regular rate and rhythm, no murmurs Abdomen: Soft, nontender, morbidly obese Extremities: Warm, well perfused. Mild edema b/l LE. R foot externally fixed and extensively wrapped. L knee swollen w effusion, limited ROM, however no erythema or tenderness to palpation Skin: Intact. No rashes, bruises, or ulcers Neuro: Awake, fully oriented. Speech fluent - Assessment and Plan (1) Charcot ankle Current Visit: Yes Status: Acute - Summary of Assessment and Plan Summary of Assessment and Plan: Jason Barth is a 63 M w hx morbid obesity, DM2, HTN, A-Fib and DVT on AC, JEAN, who presented for repeat operation for R Charcot foot requiring external fixation, removal of previous hardware, and fusion of talonavicular and calcaneocuboid joints. Hospitalist consulted for medical management. Charcot foot: s/p surgery 03/11 by podiatry, doing well, working w PT, pain controlled, SW consulted and awaiting insurance for SNF Fever: other than mild myalgias yesterday which improved w tylenol, only symptom is L knee swelling which he says is chronic; no concern for septic joint. Does have hx DVT but is therapeutic on warfarin. No respiratory symptoms but with habitus is difficult to auscultate. No dysuria or change in urine. Overall, pt feels well today and is nontoxic appearing. - d/c tylenol and monitor if re-fevers, at which point will need to check BCx x2 - encouraged IS - CBC - CXR - no role for abx at this time Hypercalcemia: Ca ~10.5-11 on multiple previous checks, vitD and P wnl, with PTH 40 currently which is inappropriately elevated although previous checks showed PTH more appropriately suppressed to 20s. Would consider referral to hyperparathyroid surgeon for additional workup if pt develops any other sequelae of hyperpara such as renal stones DM2: controlled, last A1c 7.1% in 02/2019, continue home PO meds, with additional SSI prn HTN: controlled on home PO meds A-Fib: therapeutic AC on warfarin, rate controlled DVT: AC as above JEAN: home CPAP Morbid obesity: BMI 50 PPx: warfarin as above Activity: NWB RLE FEN: ADA, no MIVF Lines: PIV Code: Full Dispo: anticipate 1-2 days, awaiting insurance for SNF placement Internal Medicine: Result - Labs CBC & Chem 7: 03/14/19 08:49 03/14/19 08:49 Labs: Short CBC 03/14/19 Range/Units 08:49 WBC 11.9 H (4.3-11.1) K/mcL Hgb 9.7 L (12.9-16.9) g/dL Hct 32.3 L (37.5-50.1) % Plt Count 331 (140-400) K/mcL BMP 03/14/19 08:49 Sodium 133 L Potassium 3.9 Chloride 102 Carbon Dioxide 22 L BUN 33 H Creatinine 1.12 Glucose 176 H Calcium 10.2 - ABG Interpretation ABG results: PT/INR, D-dimer PT 19.4 Seconds (9.4-12.1) H 03/14/19 07:37 - VTE Reasons for not Prescribing Prophylaxis: Not indicated-Anticoagulated or INR therapeutic Consult Discharge Plan - Plan Referrals: Ed Holley MD [Primary Care Provider] - (1) Charcot ankle Qualifiers: Qualified Code(s): M14.671 - Charcot's joint, right ankle and foot
[2019-03-14] MEDS ORDERED: *HR* Warfarin 7.5 MG TABLET PO ONE (18:00)
[2019-03-14] MEDS: *HR* OxyCODONE Immed Rel 5 MG TABLET PO PRN (22:54)
[2019-03-15 08:26] LABS: Hematocrit 32.2 % (37.5-50.1); Hemoglobin 9.9 g/dL (12.9-16.9); Mean Corpuscular HGB Conc 30.7 g/dL (31.6-35.5); Mean Corpuscular Hemoglobin 27.2 pg (28.0-33.3); Mean Corpuscular Volume 88.5 fL (83.0-100.0); Mean Platelet Volume 9.1 fL (9.4-12.4); Platelet Count 327 K/mcL (140-400); Red Blood Count 3.64 M/mcL (4.19-5.50); Red Cell Distribution Width 17.6 % (11.5-14.5); White Blood Count 10.6 K/mcL (4.3-11.1)
[2019-03-15 08:34] LABS: INR 1.7; Prothrombin Time 19.1 Seconds (9.4-12.1)
[2019-03-15 08:46] LABS: BUN/Creatinine Ratio 23 (6-26); Blood Urea Nitrogen 26 mg/dL (8-23); Calcium 10.7 mg/dL (8.6-10.3); Carbon Dioxide 29 mEq/L (23-29); Chloride 99 mEq/L (98-107); Glucose 197 mg/dL (70-105); Magnesium 1.7 mg/dL (1.6-2.6); Osmolality,Calculated 290 (280-300); Potassium 4.3 mEq/L (3.5-5.1); Sodium 135 mEq/L (136-145); eGFR For African Americans > 60 (> 60); eGFR For Non-African Americans > 60 (> 60)
[2019-03-15] MEDS: *HR* Metformin 500 MG TABLET PO SCH ×2 (09:13→17:21)
[2019-03-15] MEDS: *HR* Pioglitazone 45 MG TABLET PO SCH (09:13)
[2019-03-15] MEDS: Aspirin 81 MG TAB.CHEW PO SCH (09:14)
[2019-03-15] MEDS: Cholecalciferol (D-3) 1,000 UNIT (25MCG) TABLET PO SCH (09:14)
[2019-03-15] MEDS: Ascorbic Acid 500 MG TABLET PO SCH (09:14)
[2019-03-15] MEDS: Furosemide 40 MG TABLET PO SCH (09:14)
[2019-03-15] MEDS: *HR* GlyBURIDE 5 MG TABLET PO SCH ×2 (09:14→17:21)
[2019-03-15] MEDS: Insulin LISPRO 300 UNITS/3 ML VIAL SQ SCH ×3 (09:15→17:23)
[2019-03-15] MEDS: Fenofibrate 54 MG TABLET PO SCH (09:15)
--- NOTE | 2019-03-15 12:37 | Internal Med Progress Note ---
Hospitalist Progress Note - Encounter Date of Encounter: 03/15/19 Time of Encounter: 12:33 - Subjective Interval History: Feels OK, denies acute needs, hoping to discharge today, eating well, knee is a bit swollen still but no redness, no fevers but did have brief temp T'99.8 however no other issues. No CP, no SOB, no N/V/D. - Exam Vitals: Temp Pulse Resp BP Pulse Ox 98.2 F 62 18 125/71 95 03/15/19 10:55 03/15/19 10:55 03/15/19 06:36 03/15/19 10:55 03/15/19 10:55 Exam: General: NAD, good eye contact, well appearing, obese, in good spirits Thoracic: Normal breath sounds b/l, no wheezing or crackles Cardio: Normal S1 and S2, regular rate and rhythm, no murmurs Abdomen: Soft, nontender, morbidly obese Extremities: Warm, well perfused. Mild edema b/l LE. R foot externally fixed and extensively wrapped. L knee swollen w effusion, limited ROM, however no erythema or tenderness to palpation Skin: Intact. No rashes, bruises, or ulcers Neuro: Awake, fully oriented. Speech fluent - Assessment and Plan (1) Charcot ankle Current Visit: Yes Status: Acute - Summary of Assessment and Plan Summary of Assessment and Plan: Jason Barth is a 63 M w hx morbid obesity, DM2, HTN, A-Fib and DVT on AC, JEAN, who presented for repeat operation for R Charcot foot requiring external fixation, removal of previous hardware, and fusion of talonavicular and calcaneocuboid joints. Hospitalist consulted for medical management. Charcot foot: s/p surgery 03/11 by podiatry, doing well, working w PT, pain controlled, SW consulted and awaiting insurance for SNF. OK to discharge from medicine perspective. Fever: self limited, did not recur, HPI/exam/labs reassuring, ok for discharge when approved Hypercalcemia: Ca ~10.5-11 on multiple previous checks, vitD and P wnl, with PTH 40 currently which is inappropriately elevated although previous checks showed PTH more appropriately suppressed to 20s. Would consider referral to hyperparathyroid surgeon for additional workup if pt develops any other sequelae of hyperpara such as renal stones DM2: controlled, last A1c 7.1% in 02/2019, continue home PO meds, with additional SSI prn HTN: controlled on home PO meds A-Fib: therapeutic AC on warfarin, rate controlled DVT: AC as above JEAN: home CPAP Morbid obesity: BMI 50 PPx: warfarin as above Activity: NWB RLE FEN: ADA, no MIVF Lines: PIV Code: Full Dispo: anticipate d/c today or tomorrow, awaiting insurance for SNF placement Medicine will sign off at this time. Please contact us with any questions. Arden Sparrow MD Internal Medicine: Result - Labs CBC & Chem 7: 03/15/19 08:15 03/15/19 08:15 Labs: Short CBC 03/15/19 Range/Units 08:15 WBC 10.6 (4.3-11.1) K/mcL Hgb 9.9 L (12.9-16.9) g/dL Hct 32.2 L (37.5-50.1) % Plt Count 327 (140-400) K/mcL BMP 03/15/19 08:15 Sodium 135 L Potassium 4.3 Chloride 99 Carbon Dioxide 29 BUN 26 H Creatinine 1.12 Glucose 197 H Calcium 10.7 H - ABG Interpretation ABG results: PT/INR, D-dimer PT 19.1 Seconds (9.4-12.1) H 03/15/19 08:15 - VTE Reasons for not Prescribing Prophylaxis: Not indicated-Anticoagulated or INR therapeutic Consult Discharge Plan - Plan Referrals: Ed Holley MD [Primary Care Provider] - (1) Charcot ankle Qualifiers: Qualified Code(s): M14.671 - Charcot's joint, right ankle and foot
--- NOTE | 2019-03-15 15:19 | Podiatry Progress Note ---
Date of Encounter: 03/15/19 Time of Encounter: 15:00 - Assessment and Plan (1) Charcot ankle Current Visit: Yes Status: Acute Assessment: S/P Application of multiplane external fixator right LE, Fusion of the talonavicular joint with osteotomy, Fusion of the calcaneocuboid joint with osteotomy, and Removal of hardware with Dr. Barahona on 03/11/19 Plan: Pending placement to signature Patient now having edema and pain of left knee, ortho on board Hospitalist consulted for medical management, patient with history of a.fib on coumadin, COPD, DM, and HTN Continue NWB status RLE Will need discharged with norco, zofran, and doxycycline x 14 days when ready for discharge Will continue to monitor. NWB to RLE. Has knee scooter at bedside. Will leave dressing CDI at this time. If remains inpatient will change on friday or - if discharged, patient reports he has appointment with lalo in wound care center on , will change at that time. Nurse to please confirm appointment. If no appointment , please make. Qualifiers: Laterality: right Qualified Code(s): M14.671 - Charcot's joint, right ankle and foot Subjective Principal diagnosis: Charcot foot Interval history: Patient resting comfortably in bed. Ex fix in place. JONO in place. Patient denies any pain. Denies any fevers, chills, n/v calf pain or sob. Objective - Vital Signs Vital Signs: Vital Signs Temp Pulse Resp BP Pulse Ox 03/15/19 10:55 98.2 F 62 125/71 95 03/15/19 08:06 98.8 F 69 122/52 95 03/15/19 06:36 98.7 F 68 18 131/69 96 03/15/19 03:14 97.6 F 69 18 114/67 98 03/14/19 23:10 99.0 F 73 18 146/77 93 03/14/19 20:47 99.8 F H 63 20 111/63 96 03/14/19 20:00 96 03/14/19 16:20 99.1 F 64 18 94/46 96 Intake and Output 03/14/19 03/15/19 03/15/19 23:59 07:59 15:59 Intake Total 1000 / 1594 0 / 360 360 / 360 Output Total 600 / 1450 900 / 900 Balance 400 / 144 -900 / -540 360 / -540 Intake: Oral 1000 / 1490 0 / 360 360 / 360 Output: Urine 600 / 1450 900 / 900 Other: Meal Breakfast Percent of Meal Consumed 100% Weight 183.8 kg 176.8 kg Blood Glucose* 176 208 Patient Weight 03/15/19 23:59 Weight 176.8 kg - Exam Exam: CONSTITUTIONAL: awake alert and oriented x3 VASCULAR: Cap refill <3seconds to all toes. warm. No cyanosis noted. No pain with manual calf squeeze NEUROLOGICAL: Intact sensation to light touch. slightly diminished to hallux, reports this was this way prior to surgery SURGICAL: Intact ex fix Will not remove at this time. No strike through drainage noted. - Lab Result Diagrams: 03/15/19 08:15 03/15/19 08:15 Labs: Abnormal lab results WBC 11.9 K/mcL (4.3-11.1) H 03/14/19 08:49 RBC 3.64 M/mcL (4.19-5.50) L 03/15/19 08:15 Hgb 9.9 g/dL (12.9-16.9) L 03/15/19 08:15 Hct 32.2 % (37.5-50.1) L 03/15/19 08:15 MCH 27.2 pg (28.0-33.3) L 03/15/19 08:15 MCHC 30.7 g/dL (31.6-35.5) L 03/15/19 08:15 RDW 17.6 % (11.5-14.5) H 03/15/19 08:15 MPV 9.1 fL (9.4-12.4) L 03/15/19 08:15 PT 19.1 Seconds (9.4-12.1) H 03/15/19 08:15 Sodium 135 mEq/L (136-145) L 03/15/19 08:15 Carbon Dioxide 22 mEq/L (23-29) L 03/14/19 08:49 BUN 26 mg/dL (8-23) H 03/15/19 08:15 BUN/Creatinine Ratio 29 (6-26) H 03/14/19 08:49 Glucose 197 mg/dL (70-105) H 03/15/19 08:15 POC Glucose 208 mg/dL (70-99) H 03/15/19 10:50 Calcium 10.7 mg/dL (8.6-10.3) H 03/15/19 08:15 - VTE Reasons for not Prescribing Prophylaxis: Not indicated-Anticoagulated or INR therapeutic Consult Discharge Plan - Plan Referrals: Ed Holley MD [Primary Care Provider] -
[2019-03-15] MEDS: *HR* OxyCODONE Immed Rel 5 MG TABLET PO PRN (17:19)
[2019-03-15] MEDS ORDERED: *HR* Warfarin 5 MG TABLET PO SCH (18:00)
[2019-03-15] MEDS ORDERED: *HR* Warfarin 7.5 MG TABLET PO ONE (18:00)
[2019-03-16 06:32] LABS: INR 1.7; Prothrombin Time 19.2 Seconds (9.4-12.1)
[2019-03-16] MEDS: Furosemide 40 MG TABLET PO SCH (10:00)
[2019-03-16] MEDS: Fenofibrate 54 MG TABLET PO SCH (10:10)
[2019-03-16] MEDS: Insulin LISPRO 300 UNITS/3 ML VIAL SQ SCH ×3 (10:11→18:39)
[2019-03-16] MEDS: Aspirin 81 MG TAB.CHEW PO SCH (10:11)
[2019-03-16] MEDS: *HR* Metformin 500 MG TABLET PO SCH ×2 (10:11→18:42)
[2019-03-16] MEDS: *HR* Pioglitazone 45 MG TABLET PO SCH (10:11)
[2019-03-16] MEDS: Ascorbic Acid 500 MG TABLET PO SCH (10:11)
[2019-03-16] MEDS: Cholecalciferol (D-3) 1,000 UNIT (25MCG) TABLET PO SCH (10:11)
[2019-03-16] MEDS: *HR* GlyBURIDE 5 MG TABLET PO SCH ×2 (10:11→18:42)
[2019-03-16] MEDS ORDERED: *HR* Warfarin 7.5 MG TABLET PO ONE (18:00)
[2019-03-16] MEDS: *HR* OxyCODONE Immed Rel 5 MG TABLET PO PRN (22:43)
[2019-03-17 04:27] LABS: INR 1.8; Prothrombin Time 19.9 Seconds (9.4-12.1)
[2019-03-17] MEDS: Insulin LISPRO 300 UNITS/3 ML VIAL SQ SCH ×4 (09:02→21:42)
[2019-03-17] MEDS: Ascorbic Acid 500 MG TABLET PO SCH (09:09)
[2019-03-17] MEDS: *HR* Metformin 500 MG TABLET PO SCH ×2 (09:09→17:59)
[2019-03-17] MEDS: Fenofibrate 54 MG TABLET PO SCH (09:10)
[2019-03-17] MEDS: Cholecalciferol (D-3) 1,000 UNIT (25MCG) TABLET PO SCH (09:11)
[2019-03-17] MEDS: Aspirin 81 MG TAB.CHEW PO SCH (09:11)
[2019-03-17] MEDS: *HR* GlyBURIDE 5 MG TABLET PO SCH ×2 (09:11→17:59)
[2019-03-17] MEDS: *HR* Pioglitazone 45 MG TABLET PO SCH (09:11)
[2019-03-17] MEDS: Furosemide 40 MG TABLET PO SCH (09:12)
--- NOTE | 2019-03-17 12:02 | Internal Med Progress Note ---
Hospitalist Progress Note - Encounter Date of Encounter: 03/17/19 Time of Encounter: 12:00 - Subjective Interval History: No acute events overnight - Exam Vitals: Temp Pulse Resp BP Pulse Ox 98.1 F 60 18 92/54 97 03/17/19 11:03 03/17/19 11:03 03/17/19 11:03 03/17/19 11:03 03/17/19 11:03 Exam: General: NAD, good eye contact, well appearing, obese, in good spirits Thoracic: Normal breath sounds b/l, no wheezing or crackles Cardio: Normal S1 and S2, regular rate and rhythm, no murmurs Abdomen: Soft, nontender, morbidly obese Extremities: Warm, well perfused. Mild edema b/l LE. R foot externally fixed and extensively wrapped. L knee swollen w effusion, limited ROM, however no erythema or tenderness to palpation Skin: Intact. No rashes, bruises, or ulcers Neuro: Awake, fully oriented. Speech fluent - Assessment and Plan (1) Hypotension Current Visit: Yes Status: Acute Assessment and Plan: Medicine service reconsulted for hypotension this am. No acute signs of blood loss, infection or dehydration Possibly antihypertensive medication related. BP rechecked and WNL Will continue to monitor (2) Charcot ankle Current Visit: Yes Status: Acute Assessment and Plan: Had a procedure by podiatry on 03/11. PT/OT recommended inpatient rehabilitation/swing bed, however, he was denied by insurance, social sciences department chair currently work, case to solve the issue. Right foot neurovascularly intact. Podiatry following. - Time Spent with Patient Total time spent is greater than 50% in coordination of care (as documented) at patient's floor/unit and/or counseling patient: Internal Medicine: Result - Labs CBC & Chem 7: 03/17/19 12:06 03/17/19 12:06 - ABG Interpretation ABG results: PT/INR, D-dimer PT 19.9 Seconds (9.4-12.1) H 03/17/19 03:29 - Impressions Impressions Chest X-Ray 03/14/19 10:12 IMPRESSION: No acute process. D/ / Saeid Shelley MD / Saeid Shelley MD Interpreting Provider: Saeid Shelley MD - VTE Reasons for not Prescribing Prophylaxis: Not indicated-Anticoagulated or INR therapeutic Consult Discharge Plan - Plan Referrals: Jana Ott, STEPHEN [Partnered Physician] - 03/30/19 8:40 am Ed Holley MD [Primary Care Provider] - 04/21/19 4:15 pm Daniel Barahona DPM [Partnered Physician] - 03/19/19 11:45 am Rubi Valencia [Advanced Practice Nurse] - 04/21/19 10:00 am (nail trim ) Dinah Bethea MD [Non-Partnered Physician] - 06/07/19 3:10 pm Ernesto Maxwell MD [Partnered Physician] - 03/18/19 1:00 pm (2) Charcot ankle Qualifiers: Qualified Code(s): M14.671 - Charcot's joint, right ankle and foot
[2019-03-17 12:27] LABS: Basophils % 0.4 %; Eosinophils # 0.2 K/mcL (0.0-0.6); Eosinophils % 1.4 %; Hematocrit 34.8 % (37.5-50.1); Hemoglobin 10.4 g/dL (12.9-16.9); Immature Granulocytes % 0.7 % (0-4); Lymphocytes # 1.4 K/mcL (0.6-4.6); Lymphocytes % 13.4 %; Mean Corpuscular HGB Conc 29.9 g/dL (31.6-35.5); Mean Corpuscular Hemoglobin 26.7 pg (28.0-33.3); Mean Corpuscular Volume 89.5 fL (83.0-100.0); Mean Platelet Volume 9.6 fL (9.4-12.4); Monocytes # 0.9 K/mcL (0.0-1.3); Monocytes % 8.4 %; Neutrophils # 8.1 K/mcL (1.6-8.9); Platelet Count 434 K/mcL (140-400); Red Blood Count 3.89 M/mcL (4.19-5.50); Red Cell Distribution Width 17.4 % (11.5-14.5); Segmented Neutrophils % 75.7 %; White Blood Count 10.7 K/mcL (4.3-11.1)
[2019-03-17 12:43] LABS: BUN/Creatinine Ratio 28 (6-26); Blood Urea Nitrogen 30 mg/dL (8-23); Calcium 11.2 mg/dL (8.6-10.3); Carbon Dioxide 26 mEq/L (23-29); Chloride 97 mEq/L (98-107); Glucose 170 mg/dL (70-105); Magnesium 1.8 mg/dL (1.6-2.6); Osmolality,Calculated 292 (280-300); Potassium 4.1 mEq/L (3.5-5.1); Sodium 136 mEq/L (136-145); eGFR For African Americans > 60 (> 60); eGFR For Non-African Americans > 60 (> 60)
--- NOTE | 2019-03-17 15:41 | Podiatry Progress Note ---
<Jana Ott M - Last Filed: 03/17/19 15:46> Date of Encounter: 03/17/19 Time of Encounter: 15:00 - Assessment and Plan (1) Charcot ankle Current Visit: Yes Status: Acute Assessment: S/P Application of multiplane external fixator right LE, Fusion of the talonavicular joint with osteotomy, Fusion of the calcaneocuboid joint with os teotomy, and Removal of hardware with Dr. Barahona on 03/11/19 Plan: Pending placement to [facility] Hospitalist services were reconsulted for hypotension- medication related. Labs stable. no clinical signs of infection. Stable now. Continue strict NWB status RLE Will need discharged with norco, zofran, and doxycycline x 14 days when ready for discharge Will continue to monitor. NWB to RLE. Has knee scooter at bedside. Please make appointment with in clinic in 1 week following discharge Dressing to ex-fix removed at bedside All pin sites and surgical lines cleansed with saline, pat dry Painted all sites with betadine Applied strips of xeroform to all pins cut 4x4 applied surrounding all pin sites small roll gauze applied for protection. Covered with cast padding applied JONO to cover. Reports no pain, tolerated procedure well. leave dressing intact unless saturated. Will change in podiatry office at next visit. Qualifiers: Laterality: right Qualified Code(s): M14.671 - Charcot's joint, right ankle and foot Subjective Principal diagnosis: Charcot foot Interval history: Patient resting comfortably in bed. Ex fix in place. JONO in place. Patient denies any pain. Denies any fevers, chills, n/v calf pain or sob. Just finished PT. Objective - Vital Signs Vital Signs: Vital Signs Temp Pulse Resp BP Pulse Ox 03/17/19 15:31 98.9 F 77 18 109/62 94 03/17/19 11:03 98.1 F 60 18 92/54 97 03/17/19 09:00 122/74 03/17/19 06:54 98.0 F 98 20 111/69 95 03/17/19 04:04 98.0 F 67 17 113/67 97 03/16/19 22:30 97.5 F L 65 17 106/62 96 03/16/19 19:51 98.6 F 72 15 122/57 94 Intake and Output 03/16/19 03/17/19 03/17/19 23:59 07:59 15:59 Intake Total 600 / 600 Output Total 800 / 1400 600 / 1400 Balance -800 / -800 0 / -800 Intake: Oral 600 / 600 Output: Urine 800 / 1400 600 / 1400 Other: Meal Lunch Percent of Meal Consumed 100% Blood Glucose* 164 201 215 - Exam Exam: CONSTITUTIONAL: awake alert and oriented VASCULAR: Pulses palpable DP/PT. Warm toes to tibia. Cap refill <3 seconds. No calf pain with manual squeeze NEUROLOGICAL: diminished sensation to light and moderate touch Surgical: Dressing removed. All pins in place. Alignment intact and appropriate. No bleeding. No drainage. Incision lines x3 intact with sutures intact. Margins well approximated. no signs of infection to pin sites. Minimal surrounding erythema/irritation noted to pin sites. Movement of toes intact. - Lab Result Diagrams: 03/17/19 12:06 03/17/19 12:06 Labs: Abnormal lab results WBC 11.9 K/mcL (4.3-11.1) H 03/14/19 08:49 RBC 3.89 M/mcL (4.19-5.50) L 03/17/19 12:06 Hgb 10.4 g/dL (12.9-16.9) L 03/17/19 12:06 Hct 34.8 % (37.5-50.1) L 03/17/19 12:06 MCH 26.7 pg (28.0-33.3) L 03/17/19 12:06 MCHC 29.9 g/dL (31.6-35.5) L 03/17/19 12:06 RDW 17.4 % (11.5-14.5) H 03/17/19 12:06 Plt Count 434 K/mcL (140-400) H 03/17/19 12:06 MPV 9.1 fL (9.4-12.4) L 03/15/19 08:15 PT 19.9 Seconds (9.4-12.1) H 03/17/19 03:29 Sodium 135 mEq/L (136-145) L 03/15/19 08:15 Chloride 97 mEq/L (98-107) L 03/17/19 12:06 Carbon Dioxide 22 mEq/L (23-29) L 03/14/19 08:49 BUN 30 mg/dL (8-23) H 03/17/19 12:06 BUN/Creatinine Ratio 28 (6-26) H 03/17/19 12:06 Glucose 170 mg/dL (70-105) H 03/17/19 12:06 POC Glucose 201 mg/dL (70-99) H 03/17/19 07:24 Calcium 11.2 mg/dL (8.6-10.3) H 03/17/19 12:06 - VTE Reasons for not Prescribing Prophylaxis: Not indicated-Anticoagulated or INR therapeutic Consult Discharge Plan - Plan Referrals: Jana Ott CNP [Partnered Physician] - 03/30/19 8:40 am Ed Holley MD [Primary Care Provider] - 04/21/19 4:15 pm Daniel Barahona DPM [Partnered Physician] - 03/19/19 11:45 am Rubi Valencia [Advanced Practice Nurse] - 04/21/19 10:00 am (nail trim ) Dinah Bethea MD [Non-Partnered Physician] - 06/07/19 3:10 pm Ernesto Maxwell MD [Partnered Physician] - 03/18/19 1:00 pm <Daniel Barahona - Last Filed: 03/18/19 11:04> Date of Encounter: 03/18/19 - Assessment and Plan (1) Charcot ankle Current Visit: Yes Status: Acute Patient is stable. seems to be doing fine. denies f/c/n/v/sob/cp/calf pain. says he has no pain in the foot. if medically stable, patient okay to leave for ECF once approved. agrree with the above. f/u next week in office. Qualifiers: Laterality: right Qualified Code(s): M14.671 - Charcot's joint, right ankle and foot Objective - Vital Signs Vital Signs: Vital Signs Temp Pulse Resp BP Pulse Ox 03/18/19 10:53 98.0 F 70 16 99/45 93 03/18/19 07:03 98.2 F 63 20 109/66 99 03/18/19 02:49 97.9 F 60 17 103/67 100 03/17/19 22:34 97.8 F 66 18 94/60 95 03/17/19 18:54 98.1 F 75 17 116/67 95 03/17/19 15:31 98.9 F 77 18 109/62 94 Intake and Output 03/17/19 03/18/19 03/18/19 23:59 07:59 15:59 Intake Total 480 / 1080 600 / 1080 480 / 1080 Output Total 400 / 1800 400 / 1300 900 / 1300 Balance 80 / -720 200 / -220 -420 / -220 Intake: Oral 480 / 1080 600 / 1080 480 / 1080 Output: Urine 400 / 1800 400 / 1300 900 / 1300 Other: Meal Breakfast Percent of Meal Consumed 100% 100% Weight 177.2 kg Blood Glucose* 231 157 Patient Weight 03/18/19 23:59 Weight 177.2 kg - Lab Result Diagrams: 03/17/19 12:06 03/17/19 12:06 Labs: Abnormal lab results WBC 11.9 K/mcL (4.3-11.1) H 03/14/19 08:49 RBC 3.89 M/mcL (4.19-5.50) L 03/17/19 12:06 Hgb 10.4 g/dL (12.9-16.9) L 03/17/19 12:06 Hct 34.8 % (37.5-50.1) L 03/17/19 12:06 MCH 26.7 pg (28.0-33.3) L 03/17/19 12:06 MCHC 29.9 g/dL (31.6-35.5) L 03/17/19 12:06 RDW 17.4 % (11.5-14.5) H 03/17/19 12:06 Plt Count 434 K/mcL (140-400) H 03/17/19 12:06 MPV 9.1 fL (9.4-12.4) L 03/15/19 08:15 PT 23.5 Seconds (9.4-12.1) H 03/18/19 04:00 Sodium 135 mEq/L (136-145) L 03/15/19 08:15 Chloride 97 mEq/L (98-107) L 03/17/19 12:06 Carbon Dioxide 22 mEq/L (23-29) L 03/14/19 08:49 BUN 30 mg/dL (8-23) H 03/17/19 12:06 BUN/Creatinine Ratio 28 (6-26) H 03/17/19 12:06 Glucose 170 mg/dL (70-105) H 03/17/19 12:06 POC Glucose 231 mg/dL (70-99) H 03/17/19 19:23 Calcium 11.2 mg/dL (8.6-10.3) H 03/17/19 12:06
[2019-03-17] MEDS ORDERED: *HR* Warfarin 7.5 MG TABLET PO ONE (18:00)
[2019-03-17] MEDS: *HR* OxyCODONE Immed Rel 5 MG TABLET PO PRN (21:43)
[2019-03-18 04:58] LABS: INR 2.1; Prothrombin Time 23.5 Seconds (9.4-12.1)
[2019-03-18] MEDS: *HR* GlyBURIDE 5 MG TABLET PO SCH ×2 (08:59→18:31)
[2019-03-18] MEDS: Cholecalciferol (D-3) 1,000 UNIT (25MCG) TABLET PO SCH (08:59)
[2019-03-18] MEDS: *HR* Pioglitazone 45 MG TABLET PO SCH (08:59)
[2019-03-18] MEDS: Fenofibrate 54 MG TABLET PO SCH (08:59)
[2019-03-18] MEDS: Ascorbic Acid 500 MG TABLET PO SCH (08:59)
[2019-03-18] MEDS: Aspirin 81 MG TAB.CHEW PO SCH (09:00)
[2019-03-18] MEDS: Insulin LISPRO 300 UNITS/3 ML VIAL SQ SCH ×4 (09:00→22:32)
[2019-03-18] MEDS: *HR* Metformin 500 MG TABLET PO SCH ×2 (09:00→18:30)
[2019-03-18] MEDS: Furosemide 40 MG TABLET PO SCH (09:00)
--- NOTE | 2019-03-18 15:20 | Internal Med Progress Note ---
Hospitalist Progress Note - Encounter Date of Encounter: 03/18/19 Time of Encounter: 10:00 - Subjective Interval History: No acute events overnight - Exam Vitals: Temp Pulse Resp BP Pulse Ox 97.7 F 68 18 101/48 94 03/18/19 13:52 03/18/19 13:52 03/18/19 13:52 03/18/19 13:52 03/18/19 13:52 Exam: General: NAD, good eye contact, well appearing, obese, in good spirits Thoracic: Normal breath sounds b/l, no wheezing or crackles Cardio: Normal S1 and S2, regular rate and rhythm, no murmurs Abdomen: Soft, nontender, morbidly obese Extremities: Warm, well perfused. Mild edema b/l LE. R foot externally fixed and extensively wrapped. L knee swollen w effusion, limited ROM, however no erythema or tenderness to palpation Skin: Intact. No rashes, bruises, or ulcers Neuro: Awake, fully oriented. Speech fluent - Assessment and Plan (1) Hypotension Current Visit: Yes Status: Acute Assessment and Plan: Medicine service reconsulted for hypotension this am. No acute signs of blood loss, infection or dehydration Possibly antihypertensive medication related. BP rechecked and WNL Reduce dose of coreg to 6.25mg po BID. BP stable (2) Charcot ankle Current Visit: Yes Status: Acute Assessment and Plan: Had a procedure by podiatry on 03/11. PT/OT recommended inpatient rehabilitation/swing bed, however, he was denied by insurance, social work instructor currently work, case to solve the issue. Right foot neurovascularly intact. Podiatry following. (3) Afib Current Visit: No Status: Chronic Assessment and Plan: Rate controlled, continue coumadin and coreg - Time Spent with Patient Total time spent is greater than 50% in coordination of care (as documented) at patient's floor/unit and/or counseling patient: Internal Medicine: Result - Labs CBC & Chem 7: 03/17/19 12:06 03/17/19 12:06 - ABG Interpretation ABG results: PT/INR, D-dimer PT 23.5 Seconds (9.4-12.1) H 03/18/19 04:00 - VTE Reasons for not Prescribing Prophylaxis: Not indicated-Anticoagulated or INR therapeutic Consult Discharge Plan - Plan Referrals: Jana Ott CNP [Partnered Physician] - 03/30/19 8:40 am Ed Holley MD [Primary Care Provider] - 04/21/19 4:15 pm Daniel Barahona DPM [Partnered Physician] - 03/19/19 11:45 am Rubi Valencia [Advanced Practice Nurse] - 04/21/19 10:00 am (nail trim ) Dinah Bethea MD [Non-Partnered Physician] - 06/07/19 3:10 pm Ernesto Maxwell MD [Partnered Physician] - 03/18/19 1:00 pm (2) Charcot ankle Qualifiers: Qualified Code(s): M14.671 - Charcot's joint, right ankle and foot (3) Afib Qualifiers: Atrial fibrillation type: chronic Qualified Code(s): I48.2 - Chronic atrial fibrillation
[2019-03-18] MEDS ORDERED: *HR* Warfarin 5 MG TABLET PO ONE (18:00)
[2019-03-18] MEDS: *HR* OxyCODONE Immed Rel 5 MG TABLET PO PRN (22:30)
[2019-03-19 05:32] LABS: INR 2.3; Prothrombin Time 25.7 Seconds (9.4-12.1)
[2019-03-19] MEDS: Aspirin 81 MG TAB.CHEW PO SCH (08:22)
[2019-03-19] MEDS: *HR* Pioglitazone 45 MG TABLET PO SCH (08:22)
[2019-03-19] MEDS: Cholecalciferol (D-3) 1,000 UNIT (25MCG) TABLET PO SCH (08:23)
[2019-03-19] MEDS: Furosemide 40 MG TABLET PO SCH (08:23)
[2019-03-19] MEDS: Ascorbic Acid 500 MG TABLET PO SCH (08:23)
[2019-03-19] MEDS: *HR* GlyBURIDE 5 MG TABLET PO SCH (08:23)
[2019-03-19] MEDS: *HR* Metformin 500 MG TABLET PO SCH (08:23)
[2019-03-19] MEDS: Insulin LISPRO 300 UNITS/3 ML VIAL SQ SCH ×2 (08:25→12:10)
--- NOTE | 2019-03-19 09:08 | Internal Med Progress Note ---
Hospitalist Progress Note - Encounter Date of Encounter: 03/19/19 Time of Encounter: 09:00 - Subjective Interval History: No acute events overnight - Exam Vitals: Temp Pulse Resp BP Pulse Ox 97.9 F 65 19 126/76 96 03/19/19 08:09 03/19/19 08:09 03/19/19 08:09 03/19/19 08:09 03/19/19 08:09 Exam: General: NAD, good eye contact, well appearing, obese, in good spirits Thoracic: Normal breath sounds b/l, no wheezing or crackles Cardio: Normal S1 and S2, regular rate and rhythm, no murmurs Abdomen: Soft, nontender, morbidly obese Extremities: Warm, well perfused. Mild edema b/l LE. R foot externally fixed and extensively wrapped. L knee swollen w effusion, limited ROM, however no erythema or tenderness to palpation Skin: Intact. No rashes, bruises, or ulcers Neuro: Awake, fully oriented. Speech fluent - Assessment and Plan (1) Hypotension Current Visit: Yes Status: Acute Assessment and Plan: Medicine service reconsulted for hypotension this am. No acute signs of blood loss, infection or dehydration Possibly antihypertensive medication related. BP rechecked and WNL Reduce dose of coreg to 6.25mg po BID. BP stable. Can continue 6.25mg BID coreg on discharge. Advised to f/u with cardio as an outpatient. Will sign off (2) Charcot ankle Current Visit: Yes Status: Acute Assessment and Plan: Had a procedure by podiatry on 03/11. PT/OT recommended inpatient rehabilitation/swing bed, however, he was denied by insurance, psychosocial rehabilitation counselor currently work, case to solve the issue. Right foot neurovascularly intact. Podiatry following. (3) Afib Current Visit: Yes Status: Chronic Assessment and Plan: Rate controlled, continue coumadin and coreg - Time Spent with Patient Total time spent is greater than 50% in coordination of care (as documented) at patient's floor/unit and/or counseling patient: Internal Medicine: Result - Labs CBC & Chem 7: 03/17/19 12:06 03/17/19 12:06 - ABG Interpretation ABG results: PT/INR, D-dimer PT 25.7 Seconds (9.4-12.1) H 03/19/19 05:00 - VTE Reasons for not Prescribing Prophylaxis: Not indicated-Anticoagulated or INR therapeutic Consult Discharge Plan - Plan Additional Instructions: Change dressing friday03/20/19, cleanse pin sites with saline, betadine. Umberto ce zeroform, 4x4 around pin sites and roll gauze. Jona wrap around rest of leg, leave dressing in place after dressing change friday until follow up with Dr. Barahona. Follow up with Dr. Barahona on Friday at 4:30. Strict NWB. Referrals: Jana Ott CNP [Partnered Physician] - 03/30/19 8:40 am Ed Holley MD [Primary Care Provider] - 04/21/19 4:15 pm Daniel Barahona DPM [Partnered Physician] - 03/19/19 11:45 am Rubi Valencia [Advanced Practice Nurse] - 04/21/19 10:00 am (nail trim ) Dinah Bethea MD [Non-Partnered Physician] - 06/07/19 3:10 pm Ernesto Maxwell MD [Partnered Physician] - 03/18/19 1:00 pm Prescriptions: Carvedilol [Coreg] 6.25 mg PO BIDWM #60 tablet Doxycycline 100 mg PO BID 14 Days #28 capsule HYDROcodone/Acet 5/325 mg [[place] 5-325 mg] 1 tab PO Q6H PRN 4 Days #16 tab PRN Reason: Pain Ondansetron HCl [Zofran] 4 mg PO Q8HR PRN 4 Days #12 tab PRN Reason: Nausea (2) Charcot ankle Qualifiers: Qualified Code(s): M14.671 - Charcot's joint, right ankle and foot (3) Afib Qualifiers: Atrial fibrillation type: chronic Qualified Code(s): I48.2 - Chronic atrial fibrillation
--- NOTE | 2019-03-19 09:55 | Discharge Summary ---
Date of Encounter: 03/19/19 Time of Encounter: 09:40 - NOTES TO OUTPATIENT PROVIDER Notes to Outpatient Provider: Patient to continue to follow with in podiatry office. - Discharge Diagnosis (1) Charcot ankle Priority: Primary Status: Acute Comments: s/p PLAN: Ok to discharge to [facility] as ordered Dressing last changed on 03/17/19 Leave dressing CDI unless saturated, will be changed in podiatry office Please make follow up appointment with either in wound care center or podiatry office in 1 week Complete NWB to RLE Keep elevated and ice behind knee if needed for pain. Prescriptions provided for [place], Doxycycline, and zofran Patient is on coumadin and therefore does not need extra DVT prophylaxis Continue all other home medications as indicated Call office with any trauma, fevers, chills, n/v, drainage from surgical site, calf pain or sob Qualifiers: Laterality: right Qualified Code(s): M14.671 - Charcot's joint, right ankle and foot Labs on day of discharge: Labs from last 24 hours 03/19/19 03/18/19 03/18/19 05:00 11:32 07:12 PT 25.7 H INR 2.3 POC Glucose 193 H 157 H - Impressions ITS Impressions Fluoroscopy 03/11/19 13:20 IMPRESSION: Please see operative report for further details. D/ / Mak Malik MD / Mak Malik MD Interpreting Provider: Mak Malik MD Foot X-Ray 03/11/19 13:20 IMPRESSION: Please see operative report for further details. D/ / Mak Malik MD / Mak Malik MD Interpreting Provider: Mak Malik MD Chest X-Ray 03/14/19 10:12 IMPRESSION: No acute process. D/ / Saeid Shelley MD / Saeid Shelley MD Interpreting Provider: Saeid Shelley MD - Hospital Course Hospital course: Mr. Barth is a 63 year old male who was admitted following planned surgical procedure with . On 03/11 patient underwent Application of multiplane external fixator right LE Fusion of the talonavicular joint with osteotomy Fusion of the calcaneocuboid joint with osteotomy Removal of hardware. Patient was sent to PACU following surgery and was noted to be in stable condition and sent to [facility]. Patient was noted to have low-grade temp of 100.6 with a white count max of 11.9 on 03/13. This was likely reactive and temperature responded well to tylenol. Patient was followed in the hospital per hospitalist services for medical management. On 03/17 the dressing was removed to the external fixation device surgical incision was noted to be healing as expected with no clinical signs of infection. Patient remained stable and was discharged to [facility] [place] for rehab on 03/19. Patient was discharged in stable condition. All discharge instructions were covered prior to discharge and he verbalized understanding. He will be followed in podiatry office and follow up appointment has already been made. Patient is on coumadin so no need for further DVT prophylaxis. Discharged with prescriptions for [place], Zofran and Doxycycline and for dressing to be changed once before follow up appointment per nursing staff at [facility]. - Time Spent with Patient Total time spent providing and/or coordinating discharge services: - Discharge Medications Prescriptions: New Doxycycline 100 mg PO BID 14 Days #28 capsule HYDROcodone/Acet 5/325 mg [[place] 5-325 mg] 1 tab PO Q6H PRN 4 Days #16 tab PRN Reason: Pain Ondansetron HCl [Zofran] 4 mg PO Q8HR PRN 4 Days #12 tab PRN Reason: Nausea Carvedilol [Coreg] 6.25 mg PO BIDWM #60 tablet Continued Omeprazole [PriLOSEC] 40 mg PO DAILY Atorvastatin Calcium [Lipitor] 40 mg PO DAILY Cholecalciferol (Vitamin D3) [Vitamin D3] 5,000 unit PO DAILY Multivitamin [Multivitamins] 1 each PO DAILY Amitriptyline HCl 25 mg PO QPM Fenofibrate Nanocrystallized [Fenofibrate] 145 mg PO DAILY Furosemide [Lasix] 40 mg PO DAILY Testosterone [Androgel] 10 gm TD DAILY Lisinopril [Zestril] 5 mg PO DAILY Ascorbic Acid [Vitamin C] 500 mg PO DAILY Metformin HCl 500 mg PO QPM Pioglitazone HCl [Actos] 45 mg PO DAILY Glyburide/Metformin HCl [Glyburide-Metformin 5-500 mg] 1 tab PO QPM Glyburide/Metformin HCl [Glyburide-Metformin 5-500 mg] 2 tab PO QAM Liraglutide [Victoza 2-Jose Cruz] 3 mg SQ Q48H Polyethylene Glycol 3350 [MiraLAX] 17 gm PO DAILY PRN PRN Reason: Constipation Dapagliflozin Propanediol [Farxiga] 5 mg PO DAILY Warfarin [Coumadin] 5 mg PO MOWE Aspirin Enteric Coated [Aspirin EC] 81 mg PO DAILY Ferrous Sulfate [Iron] 325 mg PO DAILY Sheridan-3/Dha/Epa/Fish Oil [Fish Oil 1,000 mg Softgel] 1 cap PO DAILY Warfarin [Coumadin] 7.5 mg PO SUTUTHFRSA Discontinued Carvedilol [Coreg] 25 mg PO BID Home Medications: Amitriptyline HCl 25 mg PO QPM 04/17/18 [History] Atorvastatin Calcium [Lipitor] 40 mg PO DAILY 04/17/18 [History] Cholecalciferol (Vitamin D3) [Vitamin D3] 5,000 unit PO DAILY 04/17/18 [History] Fenofibrate Nanocrystallized [Fenofibrate] 145 mg PO DAILY 04/17/18 [History] Furosemide [Lasix] 40 mg PO DAILY 04/17/18 [History] Multivitamin [Multivitamins] 1 each PO DAILY 04/17/18 [History] Omeprazole [PriLOSEC] 40 mg PO DAILY 04/17/18 [History] Testosterone [Androgel] 10 gm TD DAILY 04/17/18 [History] Ascorbic Acid [Vitamin C] 500 mg PO DAILY 07/15/18 [History] Lisinopril [Zestril] 5 mg PO DAILY 07/15/18 [History] Glyburide/Metformin HCl [Glyburide-Metformin 5-500 mg] 1 tab PO QPM 09/24/18 [History] Glyburide/Metformin HCl [Glyburide-Metformin 5-500 mg] 2 tab PO QAM 09/24/18 [History] Liraglutide [Victoza 2-Jose Cruz] 3 mg SQ Q48H 09/24/18 [History] Metformin HCl 500 mg PO QPM 09/24/18 [History] Pioglitazone HCl [Actos] 45 mg PO DAILY 09/24/18 [History] Polyethylene Glycol 3350 [MiraLAX] 17 gm PO DAILY PRN 09/24/18 [History] Aspirin Enteric Coated [Aspirin EC] 81 mg PO DAILY 11/17/18 [History] Dapagliflozin Propanediol [Farxiga] 5 mg PO DAILY 11/17/18 [History] Warfarin [Coumadin] 5 mg PO MOWE 11/17/18 [History] Ferrous Sulfate [Iron] 325 mg PO DAILY 03/11/19 [History] Sheridan-3/Dha/Epa/Fish Oil [Fish Oil 1,000 mg Softgel] 1 cap PO DAILY 03/11/19 [History] Warfarin [Coumadin] 7.5 mg PO SUTUTHFRSA 03/11/19 [History] Carvedilol [Coreg] 6.25 mg PO BIDWM #60 tablet 03/19/19 [Rx] Doxycycline 100 mg PO BID 14 Days #28 capsule 03/19/19 [Rx] HYDROcodone/Acet 5/325 mg [[place] 5-325 mg] 1 tab PO Q6H PRN 4 Days #16 tab 03/19/19 [Rx] Ondansetron HCl [Zofran] 4 mg PO Q8HR PRN 4 Days #12 tab 03/19/19 [Rx] Allergies/Adverse Reactions: Allergy/AdvReac Type Severity Reaction Status Date / Time No Known Allergies Allergy Verified 03/11/19 11:05 Date of admission: 03/12/19 13:58 Primary care physician: Ed Holley MD Consults: 03/11/19 12:45 Consult to Occupational Therapy [CONS] Routine Comment: Evaluate, develop and implement POC Reason for Consult: gait training, transfers etc non-wb right LE Does patient have active BEDREST order?: No Is patient medically & hemodynamically stable?: Yes Consult to Physical Therapy [CONS] Routine Comment: Evaluate, develop and implement POC Reason for Consult: gait training, transfers etc. non-wb R LE Does patient have active BEDREST order?: No Is patient medically & hemodynamically stable?: Yes Consult to Mud Worker [CONS] Routine Reason for SW Consult: placement home with home care vs ECF 03/12/19 13:33 Consult to Hospitalist [CONS] Routine Consulting Provider: Hospitalist Ben Reason for Consult: Medical management Call Completed: Yes Discharging clinician: Jana Ott Anticipated date of discharge: 03/19/19 - Patient Status Disposition: Transfer SNF Condition: Good Functional capacity at discharge: uses cane/walker Overall status at discharge: patient is progressing back to baseline - Discharge Instructions Follow Up With: Jana Ott CNP [Partnered Physician] - 03/30/19 8:40 am Ed Holley MD [Primary Care Provider] - 04/21/19 4:15 pm Daniel Barahona DPM [Partnered Physician] - 03/19/19 11:45 am Rubi Valencia [Advanced Practice Nurse] - 04/21/19 10:00 am (nail trim ) Dinah Bethea MD [Non-Partnered Physician] - 06/07/19 3:10 pm Ernesto Maxwell MD [Partnered Physician] - 03/18/19 1:00 pm Additional Instructions: Change dressing friday03/20/19, cleanse pin sites with saline, betadine. Place zeroform, 4x4 around pin sites and roll gauze. Jona wrap around rest of leg, leave dressing in place after dressing change friday until follow up with Dr. Barahona. Follow up with Dr. Barahona on Friday at 4:30. Strict NWB. - Diet and Activity Activity: ambulate only with your walker, as per physical therapy Diet: advance to your usual diet - VTE Reasons for not Prescribing Prophylaxis: Not indicated-Anticoagulated or INR therapeutic
[2019-03-19 11:06] VITALS: BP 96/64
[2019-03-19] MEDS ORDERED: *HR* Warfarin 5 MG TABLET PO ONE (18:00)
== END 2019-03-19 16:33 | DRG 982 ==
LOC: SAMDAY 10:14 → 3NENU 16:25 → INTOOBSV 03-12 13:58 → OBSVTOIN 03-12 13:58
PROVIDERS: ADMIT Podiatrist; ATTEND Podiatrist

== ENCOUNTER 2019-05-18 18:08 | Inpatient (IN) ==
--- NOTE | 2019-05-18 20:14 | Emergency Department Note ---
Disposition Clinical Impression: Charcot foot due to diabetes mellitus Disposition: Admitted As Inpatient Condition: Good Time of Disposition: 21:08 General Adult HPI - General Chief complaint: ED Wound/Laceration Stated complaint: needs admitted Time Seen by Provider: 05/18/19 19:09 Source: patient Mode of arrival: ambulatory Limitations: no limitations Nursing Notes Reviewed: Yes Vital Signs Reviewed: Yes - History of Present Illness HPI Narrative: Patient is a 63-year-old male with a past medical history of diabetes who presents to the emergency department for admission prior to surgery for Charcot foot of the right foot tomorrow. He has no acute complaints. Patient was ins tructed by his drafting engineer Dr. Barahona to be admitted to the hospital so that he could be nonweightbearing and nothing by mouth after midnight. Patient otherwise does not endorse any complaints. He denies any chest pain, shortness of breath, abdominal pain, nausea, vomiting, fevers, chills, lower leg swelling. Pain Scale: 1 - Related Data Home Medications Medication Instructions Recorded Confirmed Amitriptyline HCl 25 mg PO QPM 04/17/18 05/18/19 Atorvastatin Calcium [Lipitor] 40 mg PO HS 04/17/18 05/18/19 Cholecalciferol (Vitamin D3) 5,000 unit PO DAILY 04/17/18 05/18/19 [Vitamin D3] Fenofibrate Nanocrystallized 145 mg PO DAILY 04/17/18 05/18/19 [Fenofibrate] Furosemide [Lasix] 40 mg PO DAILY 04/17/18 05/18/19 Multivitamin [Multivitamins] 1 each PO DAILY 04/17/18 05/18/19 Testosterone [Androgel] 10 gm TD DAILY 04/17/18 05/18/19 Ascorbic Acid [Vitamin C] 500 mg PO DAILY 07/15/18 05/18/19 Lisinopril [Zestril] 5 mg PO DAILY 07/15/18 05/18/19 Glyburide/Metformin HCl 1 tab PO QPM 09/24/18 05/18/19 [Glyburide-Metformin 5-500 mg] Glyburide/Metformin HCl 2 tab PO QAM 09/24/18 05/18/19 [Glyburide-Metformin 5-500 mg] Liraglutide [Victoza 2-Jose Cruz] 3 mg SQ Q48H 09/24/18 05/18/19 Metformin HCl 500 mg PO QPM 09/24/18 05/18/19 Pioglitazone HCl [Actos] 45 mg PO DAILY 09/24/18 05/18/19 Polyethylene Glycol 3350 [MiraLAX] 17 gm PO DAILY PRN 09/24/18 05/18/19 Aspirin Enteric Coated [Aspirin EC] 81 mg PO HS 11/17/18 05/18/19 Dapagliflozin Propanediol [Farxiga] 5 mg PO DAILY 11/17/18 05/18/19 Warfarin [Coumadin] 5 mg PO MOWE 11/17/18 05/18/19 Radisson-3/Dha/Epa/Fish Oil [Fish Oil 1 cap PO DAILY 03/11/19 05/18/19 1,000 mg Softgel] Warfarin [Coumadin] 7.5 mg PO SUTUTHFRSA 03/11/19 05/18/19 Carvedilol [Coreg] 25 mg PO BID 04/15/19 05/18/19 Omeprazole [PriLOSEC] 40 mg PO HS 05/18/19 05/18/19 Previous Rx's Medication Instructions Recorded HYDROcodone/Acet 5/325 mg [Corn[place] 1 tab PO Q6H PRN 5 Days #20 tab 04/15/19 5-325 mg] Allergies Allergy/AdvReac Type Severity Reaction Status Date / Time No Known Allergies Allergy Verified 04/15/19 13:38 All systems ED: reviewed and negative except as stated. Review of Systems: As Per HPI Constitutional: Denies: fever, chills, weakness Eyes: Denies: eye pain, eye discharge, vision change ENT ED: Denies: ear pain, throat pain, dental pain Cardiovascular: Denies: chest pain, palpitations, dyspnea on exertion Respiratory: Denies: cough, dyspnea, wheezes Gastrointestinal: Denies: abdominal pain, nausea, vomiting Genitourinary: Denies: urgency, dysuria, frequency Musculoskeletal: Denies: back pain, neck pain, joint swelling Integumentary: Denies: rash, abrasion, lesions Neurological: Denies: headache, weakness, numbness Psychiatric: Denies: anxiety, depression, suicidal thoughts Endocrine: Denies: fatigue, heat or cold intolerance, polydipsia Hematological/Lymphatic: Denies: easy bleeding, easy bruising, lymphadenopathy Allergic/Immunologic: Denies: facial swelling, urticaria Past Medical History - Past Medical History Attestation: Yes The following information was validated with the patient. Source: patient Medical history: Reports: arthritis, atrial fibrillation, COPD, coronary artery disease, DVT, diabetes, GERD, hypertension, other Surgical history: Reports: appendectomy, cataract, herniorrhaphy, knee replacement, orthopedic, other, pacemaker/AICD, other, pacemaker Psychiatric history: Reports: no psych history - Social History Smoking Status: Never smoker Smokeless Tobacco Status: No Alcohol use: Reports: none Drug use: Reports: none Physical Exam GEN: Well-appearing, NAD, conversant. HEAD: Normocephalic, atraumatic. EYES: PERRL, EOMI, anicteric. ENT: MMM. oropharynx without erythema or drainage. NECK: Supple. No LAD. No stiffness or restricted ROM. No tracheal deviation. HEART: Regular rate and regular rhythm, normal S1/S2, no m/r/g. LUNGS: CTAB, good air exchange bilaterally. No wheezing, rubs, or rhonchi. ABDO: Soft, nontender, nondistended with active bowel sounds. : No suprapubic tenderness or CVA tenderness. BACK: No obvious stepoffs or deformities. EXT: Without cyanosis, clubbing or edema. SKIN: Warm and dry without any rash. Bandage/gauze around right lower extremity. Lower extremity pulses intact. NEURO: Grossly nonfocal. Alert and oriented, moving all 4 extremities. CN not formally tested but appear grossly intact. PSYCH: Normal affect, no depressed or anxious mood. Course Course Narrative: Patient was seen and examined. Vitals are stable and within normal limits. Basic medical workup with CBC, BMP, coags, chest x-ray, EKG. - Reevaluation(s) Reevaluation #1: Except for admission by Dr. Simmons. Time: 21:06 Vital Signs Temperature 98.7 F 05/18/19 18:26 Pulse Rate 83 05/18/19 18:26 Respiratory Rate 16 05/18/19 18:26 Blood Pressure 112/56 05/18/19 18:26 O2 Sat by Pulse Oximetry 95 05/18/19 18:26 Temperature 98.7 F 05/18/19 19:09 Pulse Rate 83 05/18/19 19:09 Respiratory Rate 16 05/18/19 19:09 Blood Pressure 112/56 05/18/19 19:09 O2 Sat by Pulse Oximetry 95 05/18/19 19:09 Oxygen Delivery Oxygen Delivery Room Air Medical Decision Making - MDM Narrative Medical decision making narrative: Patient is a 63-year-old male who presented for preop evaluation for his Charcot foot for surgery in the a.m. tomorrow he does not have any acute complaints. Labs were notable for a slightly elevated WBC count of 12. Hemoglobin 9, which is at baseline for him. Otherwise unremarkable chest x-ray and EKG. Patient was communicated to the hospitalist and accepted for admission. - Medical Records Medical records reviewed: Yes I reviewed the patient's medical records. - Lab Data Lab results reviewed: Yes I reviewed the patient's lab results. Result diagrams: 05/18/19 20:07 05/18/19 20:07 Lab Results 05/18/19 05/18/19 05/18/19 Range/Units 20:07 20:07 20:07 WBC 12.0 H (4.3-11.1) K/mcL RBC 3.34 L (4.19-5.50) M/mcL Hgb 9.1 L (12.9-16.9) g/dL Hct 29.4 L (37.5-50.1) % MCV 88.0 (83.0-100.0) fL MCH 27.2 L (28.0-33.3) pg MCHC 31.0 L (31.6-35.5) g/dL RDW 17.4 H (11.5-14.5) % Plt Count 504 H (140-400) K/mcL MPV 9.0 L (9.4-12.4) fL Immature Gran % 1.2 (0-4) % Seg Neutrophils % 75.4 % Lymphocytes % 14.1 % Monocytes % 7.6 % Eosinophils % 1.5 % Basophils % 0.2 % Neutrophils # 9.1 H (1.6-8.9) K/mcL Lymphocytes # 1.7 (0.6-4.6) K/mcL Monocytes # 0.9 (0.0-1.3) K/mcL Eosinophils # 0.2 (0.0-0.6) K/mcL Basophils # 0.0 (0.0-0.2) K/mcL PT 27.8 H (9.4-12.1) Seconds INR 2.4 APTT 50.4 H (26.0-36.0) Seconds Sodium 135 L (136-145) mEq/L Potassium 3.7 (3.5-5.1) mEq/L Chloride 101 (98-107) mEq/L Carbon Dioxide 25 (23-29) mEq/L BUN 20 (8-23) mg/dL Creatinine 1.05 (0.70-1.30) mg/dL Est GFR ( Amer) > 60 (> 60) Est GFR (Non-Af Amer) > 60 (> 60) BUN/Creatinine Ratio 19 (6-26) Glucose 122 H (70-105) mg/dL Calculated Osmolality 284 (280-300) Calcium 10.2 (8.6-10.3) mg/dL Total Bilirubin 0.2 L (0.3-1.0) mg/dL AST 10 L (13-39) Units/L ALT 10 (7-52) Units/L Alkaline Phosphatase 76 (34-104) Units/L Serum Total Protein 6.8 (6.4-8.9) g/dL Albumin 3.3 L (3.5-5.7) g/dL Globulin 3.5 (2.4-3.5) g/dL Albumin/Globulin Ratio 0.9 L (1.1-2.2) - Radiology Data Radiology results reviewed: Yes I reviewed the patient's radiology results. - EKG Data EKG #1 EKG attestation: Yes I reviewed and interpreted this EKG. EKG results narrative: EKG obtained at 1937. My interpretation EKG shows normal sinus rhythm, normal axis, normal intervals, no ST elevations or depressions. T-wave inversion in aVL compared to prior from 04/21/2018. Attestation Statement - Attestation Attestation: I, Ernesto Perry, examined this patient and my medical decision-making was reviewed with the RADIATION ONCOLOGIST/PA/Advanced Practice Nurse/Resident Physician. I agree with the documented findings, disposition and treatment plan as described except to the extent set forth below. I reviewed the EKG with the resident and agree with the interpretation. 63-year-old male presents emergency department for admission for likely surgery in the a.m. He was evaluated by Dr. Walker earlier today and sent to the emergency department to be admitted for likely surgery for Charcot foot. Patient denies fever, chills, nausea, vomiting, chest pain, shortness of breath, abdominal pain. He is comfortable with plan for admission to the hospital.
[2019-05-18 20:39] LABS: Basophils % 0.2 %; Eosinophils # 0.2 K/mcL (0.0-0.6); Eosinophils % 1.5 %; Hematocrit 29.4 % (37.5-50.1); Hemoglobin 9.1 g/dL (12.9-16.9); Immature Granulocytes % 1.2 % (0-4); Lymphocytes # 1.7 K/mcL (0.6-4.6); Lymphocytes % 14.1 %; Mean Corpuscular Hemoglobin 27.2 pg (28.0-33.3); Monocytes # 0.9 K/mcL (0.0-1.3); Monocytes % 7.6 %; Neutrophils # 9.1 K/mcL (1.6-8.9); Platelet Count 504 K/mcL (140-400); Red Blood Count 3.34 M/mcL (4.19-5.50); Red Cell Distribution Width 17.4 % (11.5-14.5); Segmented Neutrophils % 75.4 %
[2019-05-18 20:50] LABS: INR 2.4; Prothrombin Time 27.8 Seconds (9.4-12.1)
[2019-05-18 20:52] LABS: Activated Partial Thrombo Time 50.4 Seconds (26.0-36.0)
[2019-05-18 20:58] LABS: Alanine Aminotransferase 10 Units/L (7-52); Albumin 3.3 g/dL (3.5-5.7); Albumin/Globulin Ratio 0.9 (1.1-2.2); Alkaline Phosphatase 76 Units/L (34-104); Aspartate Amino Transferase 10 Units/L (13-39); BUN/Creatinine Ratio 19 (6-26); Bilirubin,Total 0.2 mg/dL (0.3-1.0); Blood Urea Nitrogen 20 mg/dL (8-23); Calcium 10.2 mg/dL (8.6-10.3); Carbon Dioxide 25 mEq/L (23-29); Chloride 101 mEq/L (98-107); Globulin 3.5 g/dL (2.4-3.5); Glucose 122 mg/dL (70-105); Osmolality,Calculated 284 (280-300); Potassium 3.7 mEq/L (3.5-5.1); Sodium 135 mEq/L (136-145); Total Protein 6.8 g/dL (6.4-8.9); eGFR For African Americans > 60 (> 60); eGFR For Non-African Americans > 60 (> 60)
[2019-05-19] MEDS ORDERED: Naloxone 0.4 MG/ML INJ IVP PRN (04:35)
[2019-05-19] MEDS ORDERED: *HR* Dextrose 50 % in Water (Syg) 50 ML SYRINGE IVP PRN (04:38)
[2019-05-19] MEDS ORDERED: Dextrose Gel 15 GM/37.5 ML TUBE PO PRN ×2 (04:38)
[2019-05-19] MEDS ORDERED: D5% in Water 1,000 ML IVC PRN (04:38)
--- NOTE | 2019-05-19 04:51 | Internal Med History&Physical ---
Date of Encounter: 05/19/19 Time of Encounter: 04:15 Internal Medicine - H&P: HPI Chief complaint: Charcot foot Admitted From: Home Plans for Post Hospital Care: Home History of present illness: Mr. Barth is a 63 year old male with past medical history significant for hypertension, A. 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 Patient has had surgery for same on 03/11/19 and 04/15/19. Podiatry requested patient come to ER to be admitted for nonweightbearing status and nothing by mouth after midnight. Patient reports he has had drainage from right foot since previous surgery in March but otherwise denies any other c omplaints. ER obtained an EKG which they reported as sinus rhythm with no ST elevations or depressions and a T-wave inversion in aVL when compared with previous EKG from 04/21/18. ER also obtained a x-ray of the chest which showed minimal bibasilar atelectasis, left side greater than right. Patient currently denies any headache, fever, chest pain, shortness of breath, cough, abdominal pain, nausea, bowel or bladder changes. Reports checking his blood sugars regularly and they have been averaging in the 100s. Patient reports following regularly with his PCP, cardiology, podiatry, and hematology. Past Med Surg Social Fam HX - Past Medical History Medical history: atrial fibrillation, COPD, DVT, diabetes, GERD, hypertension, other Additional medical history: Irregular heart beat--Pacemaker, sick sinus syndrome. Sleep Apnea. neuropathy. iron deficiency anemia. screws and plate removed from right foot. charcot ankle, right and foot, failed hardware. paroxsymal atrial fibrillation. factor V leiden carrier. history of DVT of lower extremity, popliteal vein. dizziness. onychomycosis. left shoulder impingement syndrome. osteoarthritis of knees. DJD. vitamin D deficiency Psychiatric history: no psych history - Past Surgical History Surgical History: appendectomy, cataract, herniorrhaphy, knee replacement, orthopedic, other, pacemaker/AICD, other, pacemaker Additional surgical history: lt and rt knee replacement. right foot x 4. pacemaker. heart cath times 2. bilateral cataract removal/intraoccular lens placement. triple arthrodesis x3. left shoulder surgery. open umbilical herni a repair. colonoscopyX2. blood clots left leg. left shoulder surgery-2008. Heart cath-2007, Pacemaker insertion-2010 - Social History Smoking Status: Never smoker Smokeless Tobacco Status: No Alcohol use: none Drug use: none - Family History Mother Living Status: Age at : 65 Cause of : cancer, chf Hx Family Cardiac Disorders: (CHF) Hx Family Cancer: Yes (BREAST) Father Living Status: Age at : 60 Cause of : cancer, jaundice Hx Family Cardiac Disorders: Yes (DC, PACER) Hx Family Cancer: Yes Hx Family Endocrine Disorder: Yes (DMII) Internal Medicine - H&P: Meds Amitriptyline HCl 25 mg PO QPM 04/17/18 [History] Atorvastatin Calcium [Lipitor] 40 mg PO HS 04/17/18 [History] Cholecalciferol (Vitamin D3) [Vitamin D3] 5,000 unit PO DAILY 04/17/18 [History] Fenofibrate Nanocrystallized [Fenofibrate] 145 mg PO DAILY 04/17/18 [History] Furosemide [Lasix] 40 mg PO DAILY 04/17/18 [History] Multivitamin [Multivitamins] 1 each PO DAILY 04/17/18 [History] Testosterone [Androgel] 10 gm TD DAILY 04/17/18 [History] Ascorbic Acid [Vitamin C] 500 mg PO DAILY 07/15/18 [History] Lisinopril [Zestril] 5 mg PO DAILY 07/15/18 [History] Glyburide/Metformin HCl [Glyburide-Metformin 5-500 mg] 1 tab PO QPM 09/24/18 [History] Glyburide/Metformin HCl [Glyburide-Metformin 5-500 mg] 2 tab PO QAM 09/24/18 [History] Liraglutide [Victoza 2-Jose Cruz] 30 mg SQ Q48H 09/24/18 [History] Metformin HCl 500 mg PO QPM 09/24/18 [History] Pioglitazone HCl [Actos] 45 mg PO DAILY 09/24/18 [History] Polyethylene Glycol 3350 [MiraLAX] 17 gm PO DAILY PRN 09/24/18 [History] Aspirin Enteric Coated [Aspirin EC] 81 mg PO HS 11/17/18 [History] Dapagliflozin Propanediol [Farxiga] 5 mg PO DAILY 11/17/18 [History] Warfarin [Coumadin] 5 mg PO MOWE 11/17/18 [History] [place]-3/Dha/Epa/Fish Oil [Fish Oil 1,000 mg Softgel] 1 cap PO DAILY 03/11/19 [History] Warfarin [Coumadin] 7.5 mg PO SUTUTHFRSA 03/11/19 [History] Carvedilol [Coreg] 25 mg PO BID 04/15/19 [History] HYDROcodone/Acet 5/325 mg [[place] 5-325 mg] 1 tab PO Q6H PRN 5 Days #20 tab 04/15/19 [Rx] Omeprazole [PriLOSEC] 40 mg PO HS 05/18/19 [History] Allergy/AdvReac Type Severity Reaction Status Date / Time No Known Allergies Allergy Verified 04/15/19 13:38 All Systems PM: A 10-system review of systems was performed and is negative for pertinent findings except as documented above in the HPI. - Constitutional Vitals: Temp Pulse Resp BP Pulse Ox 98.9 F 72 20 137/63 100 05/19/19 03:43 05/19/19 03:43 05/19/19 03:43 05/19/19 03:43 05/19/19 03:43 Exam: General: Alert and oriented. Skin:Normal color, no rash, no lesions. HEENT:Pupils equal, round and reactive. Cardiovascular:Heart sounds distant, no rubs, murmurs or gallops. No JVD. Pulse regular. Lungs:Breath sounds decreased, no wheezes or crackles. Abdomen:Soft, non-tender, no rigidity. Extremities:No deformity, tenderness, joint swelling or clubbing. 1+ pitting edema noted to bilateral lower extremities. Right foot dressing dry and intact, distal motor and sensory intact, unable to assess pulses. Neurological:Normal cognition and motor skills. Pulses:Carotid and radial pulses normal +2. Rest of the physical exam is non contributory. Internal Med - H&P Results - Labs CBC & Chem 7: 05/19/19 04:58 05/18/19 20:07 Labs: Short CBC 05/18/19 Range/Units 20:07 WBC 12.0 H (4.3-11.1) K/mcL Hgb 9.1 L (12.9-16.9) g/dL Hct 29.4 L (37.5-50.1) % Plt Count 504 H (140-400) K/mcL Neutrophils # 9.1 H (1.6-8.9) K/mcL BMP 05/18/19 20:07 Sodium 135 L Potassium 3.7 Chloride 101 Carbon Dioxide 25 BUN 20 Creatinine 1.05 Glucose 122 H Calcium 10.2 Liver Function 05/18/19 Range/Units 20:07 Total Bilirubin 0.2 L (0.3-1.0) mg/dL AST 10 L (13-39) Units/L ALT 10 (7-52) Units/L Alkaline Phosphatase 76 (34-104) Units/L Albumin 3.3 L (3.5-5.7) g/dL - Impressions ITS Impressions Chest X-Ray 05/18/19 20:05 IMPRESSION: 1. Minimal bibasilar atelectasis, left side greater than right. D/ / 05/18/2019 20:39:14 Brandon Nicole MD / candelario Interpreting Provider: Brandon Nicole MD - Assessment and Plan (1) Charcot foot due to diabetes mellitus Current Visit: Yes Status: Acute Assessment and plan: Sent from podiatry office by Dr Barahona to ER for admission to hospital for nonweightbearing and NPO status with plans to go to OR in a.m. Podiatry consult order placed. NPO and nonweightbearing orders placed. (2) Abnormal EKG Current Visit: Yes Status: Acute Assessment and plan: EKG obtained on admission in ER shows t wave inversion in AVL which is new when compared with EKG from 04/21/18. Cardiology consult ordered for surgery clearance, will need called in a.m. (3) Leukocytosis Current Visit: Yes Status: Acute Assessment and plan: Slightly elevated at 12.0 No signs of infection. Repeat labs ordered. Qualifiers: Leukocytosis type: unspecified Qualified Code(s): D72.829 - Elevated white blood cell count, unspecified (4) Hyponatremia Current Visit: Yes Status: Acute Assessment and plan: Minimally decreased at 135. Repeat labs ordered. (5) Decreased hemoglobin Current Visit: Yes Status: Chronic Assessment and plan: Appears around baseline currently at 9.1. Reports drainage from surgical site on right foot since previous surgery in March. Repeat labs ordered. (6) Diabetes mellitus Current Visit: Yes Status: Chronic Assessment and plan: Hold home diabetic medications. Sliding scale insulin ordered. Accu-Chek's ordered. Qualifiers: Diabetes mellitus type: type 2 Qualified Code(s): E11.9 - Type 2 diabetes mellitus without complications (7) Sleep apnea Current Visit: Yes Status: Chronic Assessment and plan: Continue home CPAP at night. Qualifiers: Sleep apnea type: unspecified type Qualified Code(s): G47.30 - Sleep apnea, unspecified - Time Spent With Patient Total time spent is greater than 50% in coordination of care (as documented) at patient's floor/unit and/or counseling patient:
[2019-05-19 05:16] LABS: Basophils % 0.3 %; Eosinophils # 0.1 K/mcL (0.0-0.6); Eosinophils % 1.1 %; Hematocrit 28.5 % (37.5-50.1); Hemoglobin 8.7 g/dL (12.9-16.9); Lymphocytes # 1.5 K/mcL (0.6-4.6); Lymphocytes % 11.9 %; Mean Corpuscular HGB Conc 30.5 g/dL (31.6-35.5); Mean Corpuscular Hemoglobin 26.6 pg (28.0-33.3); Mean Corpuscular Volume 87.2 fL (83.0-100.0); Mean Platelet Volume 8.8 fL (9.4-12.4); Monocytes % 8.1 %; Neutrophils # 9.6 K/mcL (1.6-8.9); Platelet Count 468 K/mcL (140-400); Red Blood Count 3.27 M/mcL (4.19-5.50); Red Cell Distribution Width 17.2 % (11.5-14.5); Segmented Neutrophils % 77.6 %; White Blood Count 12.4 K/mcL (4.3-11.1)
[2019-05-19 05:36] LABS: INR 2.3; Prothrombin Time 26.6 Seconds (9.4-12.1)
[2019-05-19] MEDS: Insulin LISPRO 300 UNITS/3 ML VIAL SQ SCH ×3 (05:49→18:09)
[2019-05-19 07:51] LABS: BUN/Creatinine Ratio 20 (6-26); Blood Urea Nitrogen 21 mg/dL (8-23); Calcium 10.5 mg/dL (8.6-10.3); Carbon Dioxide 27 mEq/L (23-29); Chloride 103 mEq/L (98-107); Glucose 172 mg/dL (70-105); INR 2.2; Osmolality,Calculated 287 (280-300); Prothrombin Time 25.3 Seconds (9.4-12.1); Sodium 135 mEq/L (136-145); eGFR For African Americans > 60 (> 60); eGFR For Non-African Americans > 60 (> 60)
[2019-05-19] MEDS ORDERED: *HR* OxyCODONE Immed Rel 5 MG TABLET PO PRN ×2 (10:17→14:20)
[2019-05-19] MEDS ORDERED: *HR* HYDROcodone/Acet 5/325 mg TABLET PO PRN ×2 (10:19→17:05)
--- NOTE | 2019-05-19 10:22 | Cardiology Consult Note ---
<Tamir Adamson M - Last Filed: 05/19/19 17:13> Date of Encounter: 05/19/19 Time of Encounter: 08:00 Assessment and Plan (1) Encounter for pre-operative cardiovascular clearance Current Visit: Yes Status: Acute The patient presents to the hospital for surgical management of Charcot foot. The patient has undergone similar surgery twice in the last 2 months without complications, general anesthesia used on both instances. Patient has no active cardiac conditions that would delay surgery at this time. No history of valvular disease. No active angina or dyspnea. Patient does have a poor performance status and is incapable of completing 4 METs 2/2 being bedbound for roughly one year. However, recent echo obtained in December does reveal preserved ejection fraction without evidence of diastolic dysfunction. The patient did undergo an ischemic evaluation in 2011 with an [facility] that revealed nonobstructive CAD. Cardiology was consulted due to concerns regarding a short run of NSVT overnight on telemetry. This does appear to be an episode of slow V. tach versus ventricular aberrancy however it occurred only at night, no daytime runs of VT, patient remains completely asymptomatic and does have a history of obstructive sleep apnea. With regard to cardiovascular risk, this is an intermediate risk surgery from which the patient may ultimately suffer permanent disability if delayed. Any further cardiac testing would only serve to further delay the procedure thus increasing his risk for complication. Therefore, would recommend proceeding with the surgery and the patient's cardiovascular risk is deemed acceptable. Plan: -We will proceed with echo to rule out structural or functional abnormality of the heart -Recommend proceeding with surgery pending completion of echo Discussion w patient/family: The assessment and plan as outlined above was discussed with the patient and/or family members who expressed understanding and agreement. All questions were answered. Thank you for involving us in the care of your patient. Please call with any questions. History of Present Illness Consult date: 05/19/19 Consult reason: Cardiac Clearance Chief complaint: Charcot Foot History of present illness: Mr. Barth is a 63 year old male with a PMHx of JEAN, HTN, Hypercholesterolemia, T2DM, Chronic Anemia, CAD, Sick Sinus Syndrome s/p PPM, AFIB A/C with Coumadin, who is currently admitted at request of podiatry in preparation for surgery for charcot foot. Cardiology has been consulted for preoperative cardiac clearance. Patient reports being mostly bed-bound for roughly one year 2/2 history of charcot foot and admits to very poor performance status. States he previously would have been able to climb one flight of stairs or walk 2 city blocks w/o difficulty and w/o dyspnea however he admits at this time even w/o his current chronic disability he would be unable to do this secondary to being mostly bedbound. Patient denies any history of chest pain or dyspnea at rest or exer tion. Patient is compliant with his CPAP at night. Patient denies any tobacco abuse history. Patient last echo was performed December 2018 which was an poor study secondary to body habitus but did reveal preserved ejection fraction without evidence of diastolic dysfunction. Patient's EKG this admission did reveal a minor T-wave inversion in single-lead, aVL. Patient did recently undergo similar surgery for Charcot foot without cardiac complications. Last ischemic workup 2011, [facility] revealed nonocclusive CAD. Patient's risk factors include hypertension, diabetes, hyperlipidemia and a strong family history of CAD. Patient's vitals are hemodynamically stable. Patient's physical exam significa nt for peripheral edema, +2 pretibial. Distant heart sounds no evidence of rales or rhonchi, heart regular rate and rhythm. Laboratory evaluation does reveal a history of chronic anemia, currently at baseline. No electrolyte abnormalities. Imaging revealed bibasilar atelectasis. Of note, patient did undergo a brief run of NSVT overnight, which in the setting of sleep apnea is not surprising. Patient has been asymptomatic without runs of V. tach during the day. Past Med Surg Social Fam HX - Past Medical History Medical history: atrial fibrillation, COPD, DVT, diabetes, GERD, hypertension, other Additional medical history: Irregular heart beat--Pacemaker, sick sinus syndrome. Sleep Apnea. neuropathy. iron deficiency anemia. screws and plate removed from right foot. charcot ankle, right and foot, failed hardware. paroxsymal atrial fibrillation. factor V leiden carrier. history of DVT of lower extremity, popliteal vein. dizziness. onychomycosis. left shoulder impingement syndrome. osteoarthritis of knees. DJD. vitamin D deficiency Psychiatric history: no psych history - Past Surgical History Surgical History: appendectomy, cataract, herniorrhaphy, knee replacement, orthopedic, other, pacemaker/AICD, other, pacemaker Additional surgical history: lt and rt knee replacement. right foot x 4. pacemaker. heart cath times 2. bilateral cataract removal/intraoccular lens placement. triple arthrodesis x3. left shoulder surgery. open umbilical hernia repair. colonoscopyX2. blood clots left leg. left shoulder surgery- 2008. Heart cath-2007, Pacemaker insertion-2010 - Social History Smoking Status: Never smoker Smokeless Tobacco Status: No Alcohol use: none Drug use: none - Family History Mother Living Status: Age at : 65 Cause of : cancer, chf Hx Family Cardiac Disorders: (CHF) Hx Family Cancer: Yes (BREAST) Father Living Status: Age at : 60 Cause of : cancer, jaundice Hx Family Cardiac Disorders: Yes (OR, PACER) Hx Family Cancer: Yes Hx Family Endocrine Disorder: Yes (DMII) Medications and Allergies Amitriptyline HCl 25 mg PO QPM 04/17/18 [History] Atorvastatin Calcium [Lipitor] 40 mg PO HS 04/17/18 [History] Cholecalciferol (Vitamin D3) [Vitamin D3] 5,000 unit PO DAILY 04/17/18 [History] Fenofibrate Nanocrystallized [Fenofibrate] 145 mg PO DAILY 04/17/18 [History] Furosemide [Lasix] 40 mg PO DAILY 04/17/18 [History] Multivitamin [Multivitamins] 1 each PO DAILY 04/17/18 [History] Testosterone [Androgel] 10 gm TD DAILY 04/17/18 [History] Ascorbic Acid [Vitamin C] 500 mg PO DAILY 07/15/18 [History] Lisinopril [Zestril] 5 mg PO DAILY 07/15/18 [History] Glyburide/Metformin HCl [Glyburide-Metformin 5-500 mg] 1 tab PO QPM 09/24/18 [History] Glyburide/Metformin HCl [Glyburide-Metformin 5-500 mg] 2 tab PO QAM 09/24/18 [History] Liraglutide [Victoza 2-Jose Cruz] 30 mg SQ Q48H 09/24/18 [History] Metformin HCl 500 mg PO QPM 09/24/18 [History] Pioglitazone HCl [Actos] 45 mg PO DAILY 09/24/18 [History] Polyethylene Glycol 3350 [MiraLAX] 17 gm PO DAILY PRN 09/24/18 [History] Aspirin Enteric Coated [Aspirin EC] 81 mg PO HS 11/17/18 [History] Dapagliflozin Propanediol [Farxiga] 5 mg PO DAILY 11/17/18 [History] Warfarin [Coumadin] 5 mg PO MOWE 11/17/18 [History] [place]-3/Dha/Epa/Fish Oil [Fish Oil 1,000 mg Softgel] 1 cap PO DAILY 03/11/19 [History] Warfarin [Coumadin] 7.5 mg PO SUTUTHFRSA 03/11/19 [History] Carvedilol [Coreg] 25 mg PO BID 04/15/19 [History] HYDROcodone/Acet 5/325 mg [[place] 5-325 mg] 1 tab PO Q6H PRN 5 Days #20 tab 04/15/19 [Rx] Omeprazole [PriLOSEC] 40 mg PO HS 05/18/19 [History] Allergy/AdvReac Type Severity Reaction Status Date / Time No Known Allergies Allergy Verified 04/15/19 13:38 All Systems Review: The remainder of the systems were reviewed and are negative Physical Examination Vital Signs, Last 4 Hours Temp Pulse Resp BP Pulse Ox 05/19/19 07:44 97.8 F 70 16 115/63 98 Other: Gen: alert and oriented, NAD, vitals stable Head: atraumatic, normocephalic Eyes: anicteric sclera, EOMI ENT: Mucous membranes moist, oropharynx clear, no mucosal lesions Neck: trachea midline, no lymphadenopathy or thyromegaly palpated, No JVD CV: distant heart sounds, no obvious murmur, RRR Resp: non-labored breathing, CTAB, no wheezes rales rhonchi Abd: obese, distended, nontender, nonrigid, no organomegaly Ext: +2 pretibial pitting edema, RLE bandages in place, C/D/I Results 05/19/19 04:58 05/19/19 07:08 Lab Results 05/18/19 05/18/19 05/18/19 20:07 20:07 20:07 WBC 12.0 H Hgb 9.1 L Hct 29.4 L Plt Count 504 H INR 2.4 APTT 50.4 H Sodium 135 L Potassium 3.7 Chloride 101 Carbon Dioxide 25 BUN 20 Creatinine 1.05 Glucose 122 H Calcium 10.2 Magnesium Total Bilirubin 0.2 L AST 10 L ALT 10 Alkaline Phosphatase 76 05/19/19 05/19/19 05/19/19 04:58 05:16 07:08 WBC 12.4 H Hgb 8.7 L Hct 28.5 L Plt Count 468 H INR 2.3 APTT Sodium Potassium Chloride Carbon Dioxide BUN Creatinine Glucose Calcium Magnesium 1.9 Total Bilirubin AST ALT Alkaline Phosphatase 05/19/19 05/19/19 07:08 07:08 WBC Hgb Hct Plt Count INR 2.2 APTT Sodium 135 L Potassium 4.0 Chloride 103 Carbon Dioxide 27 BUN 21 Creatinine 1.04 Glucose 172 H Calcium 10.5 H Magnesium Total Bilirubin AST ALT Alkaline Phosphatase Consult Discharge Plan - Plan Referrals: Ed Holley MD [Primary Care Provider] - Cardiac Rehab - Cardiac Rehab Cardiac Rehab: Phase I consult completed. Patient was educated on why Cardiac Rehabilitation is beneficial to his/her health. Participating in a cardiac rehabilitation can improve the following: strengthen your heart, improve ejection fraction, weight reduction, decrease cholesterol levels, lower blood pressure, lower blood sugar, improve stamina, and enhance self-image. If he/she has any questions, they were instructed to call [facility] at [phone]. <Janie Lazaro - Last Filed: 05/21/19 09:27> Date of Encounter: 05/21/19 - Attending Attestation I examined this patient and my medical decision-making was reviewed with the Resident Physician. I agree with the documented findings, disposition and murphy tment plan as described. Assessment and Plan Discussion w patient/family: The assessment and plan as outlined above was discussed with the patient and/or family members who expressed understanding and agreement. All questions were answered. Thank you for involving us in the care of your patient. Please call with any questions. History of Present Illness History of present illness: Mr. Barth is a 63 year old male All Systems Review: The remainder of the systems were reviewed and are negative Physical Examination Vital Signs, Last 4 Hours Pulse Resp BP Pulse Ox 05/21/19 07:17 60 20 162/66 96 Results 05/21/19 05:04 05/21/19 05:04 Lab Results 05/21/19 05/21/19 05:04 05:04 WBC 13.7 H Hgb 9.2 L Hct 30.5 L Plt Count 473 H Sodium 131 L Potassium 4.2 Chloride 100 Carbon Dioxide 25 BUN 18 Creatinine 0.89 Glucose 308 H Calcium 9.8 Cardiac Rehab - Cardiac Rehab Cardiac Rehab: Phase I consult completed. Patient was educated on why Cardiac Rehabilitation is beneficial to his/her health. Participating in a cardiac rehabilitation can improve the following: strengthen your heart, improve ejection fraction, weight reduction, decrease cholesterol levels, lower blood pressure, lower blood sugar, improve stamina, and enhance self-image. If he/she has any questions, they were instructed to call [facility] at [phone].
--- NOTE | 2019-05-19 10:27 | Internal Med Progress Note ---
<Evette Peck - Last Filed: 05/19/19 13:24> Hospitalist Progress Note - Encounter Date of Encounter: 05/19/19 - Exam Vitals: Temp Pulse Resp BP Pulse Ox 98.1 F 68 16 154/79 97 05/19/19 11:26 05/19/19 11:26 05/19/19 11:26 05/19/19 11:26 05/19/19 11:26 - Assessment and Plan (1) Charcot foot due to diabetes mellitus Current Visit: Yes Status: Acute (2) Abnormal EKG Current Visit: Yes Status: Acute (3) Leukocytosis Current Visit: Yes Status: Acute (4) Hyponatremia Current Visit: Yes Status: Acute (5) Decreased hemoglobin Current Visit: Yes Status: Chronic (6) Diabetes mellitus Current Visit: Yes Status: Chronic (7) Sleep apnea Current Visit: Yes Status: Chronic - Time Spent with Patient Total time spent is greater than 50% in coordination of care (as documented) at patient's floor/unit and/or counseling patient: Internal Medicine: Result - Labs CBC & Chem 7: 05/19/19 04:58 05/19/19 07:08 Labs: Short CBC 05/18/19 05/19/19 Range/Units 20:07 04:58 WBC 12.0 H 12.4 H (4.3-11.1) K/mcL Hgb 9.1 L 8.7 L (12.9-16.9) g/dL Hct 29.4 L 28.5 L (37.5-50.1) % Plt Count 504 H 468 H (140-400) K/mcL Neutrophils # 9.1 H 9.6 H (1.6-8.9) K/mcL BMP 05/18/19 05/19/19 20:07 07:08 Sodium 135 L 135 L Potassium 3.7 4.0 Chloride 101 103 Carbon Dioxide 25 27 BUN 20 21 Creatinine 1.05 1.04 Glucose 122 H 172 H Calcium 10.2 10.5 H Liver Function 05/18/19 Range/Units 20:07 Total Bilirubin 0.2 L (0.3-1.0) mg/dL AST 10 L (13-39) Units/L ALT 10 (7-52) Units/L Alkaline Phosphatase 76 (34-104) Units/L Albumin 3.3 L (3.5-5.7) g/dL - ABG Interpretation ABG results: PT/INR, D-dimer PT 25.3 Seconds (9.4-12.1) H 05/19/19 07:08 - Impressions Impressions Chest X-Ray 05/18/19 20:05 IMPRESSION: 1. Minimal bibasilar atelectasis, left side greater than right. D/ / 05/18/2019 20:39:14 Brandon Nicole MD / candelario Interpreting Provider: Brandon Nicole MD Consult Discharge Plan - Plan Referrals: Ed Holley MD [Primary Care Provider] - - Attending Attestation I examined this patient and my medical decision-making was reviewed with the Resident Physician Alex. I agree with the documented findings, disposition and treatment plan as described except to the extent set forth below. Mr Barth is being observed for Charcot foot requiring surgical intervention awake, family at bedside. pain in foot is tolerable. no fevers or chills. no abd pain, diarrhea, cough, congestion or body aches. Denies cp, pressure, sob at rest or palpitations. he does have sob with exertion at home. gen- alert, awake,appears stated age cv- reg rate and rhythm, normal s1,s2, trace pitting le edema lungs- ctabl, no wheezing, rhonchi or crackles msk- right foot dressing c/d/i neuro- AAOx3 Charcot Foot requiring surgical intervention- podiatry following Pre op Risk assessment- given runs of slow VT overnight on tele and EKG chnages cards was contacted for pre op risk assessment- per verbal update this morning awaiting echo result to assess for structure abnormalities prior to OR, will fu cards recs pending study result Afib hx on AC- INR is 2.2 today, cont to monitor, holding warfarin in prep for OR, defer to podiatry as to goal INR for OR Mild leukocytosis, afebrile- ros is negative for s/s of infectious process at this time, will cont to follow Chronic anemia on AC, possibly related, at baseline- will monitor further dx and plan as noted by resident <Jana Johnson - Last Filed: 05/19/19 18:37> Hospitalist Progress Note - Encounter Date of Encounter: 05/19/19 Time of Encounter: 10:25 - Subjective Interval History: Patient is here today for surgery with Dr. Walker for Charcot foot for which he has had surgeries before on 03/11, 04/15. He is currently nothing by mouth and nonweightbearing. ECG showed sinus rhythm, no ST changes; T wave inversion on aVL which was changed from 04/21/18. Chest x-ray showed minimal bibasilar atelectasis, left more than right. Around 6 AM this morning, he had runs of possible V. tach on telemetry. Patient reports feeling fine. He says that he slept pretty well until the lab draws started this morning. He is just waiting for his surgery, which he thinks is today. - Exam Vitals: Temp Pulse Resp BP Pulse Ox 97.8 F 70 16 115/63 98 05/19/19 07:44 05/19/19 07:44 05/19/19 07:44 05/19/19 07:44 05/19/19 07:44 Exam: GENERAL: Conversant, in no acute distress. EYES: Anicteric, clear sclerae. Pupils equal and reactive to light bilaterally. HENT: Atraumatic, normocephalic. Moist mucosa. CV: Regular rate and rhythm. Normal S1 and S2. No murmurs, clicks, or gallops. RESPIRATORY: Clear to auscultation bilaterally. No wheezes, rhonchi, or rales. ABDOMEN: Soft, nontender, nondistended. Normal bowel sounds. EXTREMITIES: Right ankle and foot are obscured by bandages which are clean, dry. Peripheral pulses 2/4 bilaterally. Capillary refill <2 sec. No edema present. SKIN: No rashes or lesions. - Assessment and Plan (1) Charcot foot due to diabetes mellitus Current Visit: Yes Status: Acute Assessment and Plan: Plan is for Dr. Barahona to perform surgery tonight or tomorrow. We will await further podiatry orders. Currently nothing by mouth and nonweightbearing. Continue pain medications as needed. (2) Abnormal EKG Current Visit: Yes Status: Acute Assessment and Plan: Initial EKG showed T-wave inversion in aVL, new in comparison from EKG from 04/21/18. Patient experienced overnight NSVT on telemetry; cardiology was consulted Echocardiogram showed preserved LV systolic function. Cardiology gave clearance for surgery. (3) Leukocytosis Current Visit: Yes Status: Acute Assessment and Plan: Was initially 12.0 WBCs today were slightly further elevated to 12.4 -Will continue to monitor CBC. -Clinical picture does not suggest infection (4) Hyponatremia Current Visit: Yes Status: Acute Assessment and Plan: Sodium level was slightly decreased at 135. Continue to monitor. (5) Decreased hemoglobin Current Visit: Yes Status: Chronic Assessment and Plan: Baseline hemoglobin appears to range between 9 and 12. Hemoglobin today was 8.7. Patient received 1 unit PRBCs. We will continue to monitor CBCs. (6) Diabetes mellitus Current Visit: Yes Status: Chronic Assessment and Plan: Continue to hold home diabetic medications Continue SSRI and Accu-Cheks (7) Sleep apnea Current Visit: Yes Status: Chronic Assessment and Plan: Continue home CPAP at night. - Time Spent with Patient Total time spent is greater than 50% in coordination of care (as documented) at patient's floor/unit and/or counseling patient: Internal Medicine: Result - Labs CBC & Chem 7: 05/19/19 04:58 05/19/19 07:08 Labs: Short CBC 05/18/19 05/19/19 Range/Units 20:07 04:58 WBC 12.0 H 12.4 H (4.3-11.1) K/mcL Hgb 9.1 L 8.7 L (12.9-16.9) g/dL Hct 29.4 L 28.5 L (37.5-50.1) % Plt Count 504 H 468 H (140-400) K/mcL Neutrophils # 9.1 H 9.6 H (1.6-8.9) K/mcL BMP 05/18/19 05/19/19 20:07 07:08 Sodium 135 L 135 L Potassium 3.7 4.0 Chloride 101 103 Carbon Dioxide 25 27 BUN 20 21 Creatinine 1.05 1.04 Glucose 122 H 172 H Calcium 10.2 10.5 H Liver Function 05/18/19 Range/Units 20:07 Total Bilirubin 0.2 L (0.3-1.0) mg/dL AST 10 L (13-39) Units/L ALT 10 (7-52) Units/L Alkaline Phosphatase 76 (34-104) Units/L Albumin 3.3 L (3.5-5.7) g/dL - ABG Interpretation ABG results: PT/INR, D-dimer PT 25.3 Seconds (9.4-12.1) H 05/19/19 07:08 - Impressions Impressions Chest X-Ray 05/18/19 20:05 IMPRESSION: 1. Minimal bibasilar atelectasis, left side greater than right. D/ / 05/18/2019 20:39:14 Brandon Nicole MD / candelario Interpreting Provider: Brandon Nicole MD <Jana Johnson - Last Filed: 05/19/19 18:37> (3) Leukocytosis Qualifiers: Leukocytosis type: unspecified Qualified Code(s): D72.829 - Elevated white blood cell count, unspecified (6) Diabetes mellitus Qualifiers: Diabetes mellitus type: type 2 Qualified Code(s): E11.9 - Type 2 diabetes mellitus without complications (7) Sleep apnea Qualifiers: Sleep apnea type: unspecified type Qualified Code(s): G47.30 - Sleep apnea, unspecified
--- NOTE | 2019-05-19 12:37 | Podiatry Consult Note ---
Date of Encounter: 05/19/19 Time of Encounter: 11:00 Assessment and Plan (1) Charcot foot due to diabetes mellitus Current visit: Yes Status: Acute ASSESSMENT: rejection of hardware of right foot s/p charcot revision PLAN: -Patient pending revision of right ankle arthrodesis using external fixation and possible internal fixation and bonegraft with removal of hardware -Scheduled for surgery however currently on hold awaiting cardiac clearance - -Patient had short run of vtach and showing t wave inversions in 1 lead- spoke with cardiology- reports this is likely reactive from sleep apnea and they recommend only echo prior to clearance - echo placed and pending clearance will take to surgery later this afternoon - ok to proceed with surgery with noted inr of 2.2 - Hgb 8.7, please type and cross and infuse with 1 unit of PRBC. This was discu ssed and order provided to SAKINA babcock - Plan discussed with patient and . Denies any questions or concerns -consent was obtained in clinic yesterday and signed per patient. Patient denies any questions today, placed to chart - wbc 12.4 DRESSING: Removed posterior splint to RLE Painted all incisions and wound to posterior heel with betadine Applied ABD, 4x4 and posterior splint, kerlix and JONO back to RLE. Patient notes comfort and foot and ankle in proper alignment Xray obtained on podiatry OV noted : There is redemonstration of hindfoot arthrodesis. When compared to the previous exam, there is increased distraction of the osteotomy fragments.. Several fractured screws are again noted, similar. There Is a screw identified along the lateral aspect of the ankle which may not be seated within a bone. Distal fibular resection again noted. Overlying soft tissue swelling is found. History of Present Illness HPI: Mr. aBrth is a 63 year old male who is known to podiatry and . Patient has an extensive history of charcot foot revision of the right foot. Patient surgical history with podiatry consists of 04/22/2018 Removal of painful hardware , 03/11/2019 Application of multiplane external fixator right LE Fusion of the talonavicular joint with osteotomy, Fusion of the calcaneocuboid j oint with osteotomy, Removal of hardware , 04/15/2019 Right gastroc recession , bone graft major, Removal of external fixator, Ankle fusion. Patient was recently seen in podiatry office where an xray was obtained and failed hardware noted. Patient was asked to go to the ED for workup and admission for surgery. Patient resting comfortably on arrival. Denies any fevers, chills, n/v or fls. Patient states there has been a large amount of drainage from wound, thick yellow. States they have been applying ABD pads under dressing related to drainage. Relates that the heel also has a moderate amount of bleeding. Nurse reported that overnight patient had a run of vtach adn t wave inversions. Patient currently undergoing cardiac clearance for surgery. Patient is asymptomatic and resting comfortably at this time without distress. Past Med Surg Social Fam HX - Past Medical History Medical history: atrial fibrillation, COPD, DVT, diabetes, GERD, hypertension, other Additional medical history: Irregular heart beat--Pacemaker, sick sinus syndrome. Sleep Apnea. neuropathy. iron deficiency anemia. screws and plate removed from right foot. charcot ankle, right and foot, failed hardware. pa roxsymal atrial fibrillation. factor V leiden carrier. history of DVT of lower extremity, popliteal vein. dizziness. onychomycosis. left shoulder impingement syndrome. osteoarthritis of knees. DJD. vitamin D deficiency Psychiatric history: no psych history - Past Surgical History Surgical History: appendectomy, cataract, herniorrhaphy, knee replacement, orthopedic, other, pacemaker/AICD, other, pacemaker Additional surgical history: lt and rt knee replacement. right foot x 4. pacemaker. heart cath times 2. bilateral cataract removal/intraoccular lens placement. triple arthrodesis x3. left shoulder surgery. open umbilical hernia repair. colonoscopyX2. blood clots left leg. left shoulder surgery- 2008. Heart cath-2007, Pacemaker insertion-2010 - Social History Smoking Status: Never smoker Smokeless Tobacco Status: No Alcohol use: none Drug use: none - Family History Mother Living Status: Age at : 65 Cause of : cancer, chf Hx Family Cardiac Disorders: (CHF) Hx Family Cancer: Yes (BREAST) Father Living Status: Age at : 60 Cause of : cancer, jaundice Hx Family Cardiac Disorders: Yes (MD, PACER) Hx Family Cancer: Yes Hx Family Endocrine Disorder: Yes (DMII) Medications and Allergies Amitriptyline HCl 25 mg PO QPM 04/17/18 [History] Atorvastatin Calcium [Lipitor] 40 mg PO HS 04/17/18 [History] Cholecalciferol (Vitamin D3) [Vitamin D3] 5,000 unit PO DAILY 04/17/18 [History] Fenofibrate Nanocrystallized [Fenofibrate] 145 mg PO DAILY 04/17/18 [History] Furosemide [Lasix] 40 mg PO DAILY 04/17/18 [History] Multivitamin [Multivitamins] 1 each PO DAILY 04/17/18 [History] Testosterone [Androgel] 10 gm TD DAILY 04/17/18 [History] Ascorbic Acid [Vitamin C] 500 mg PO DAILY 07/15/18 [History] Lisinopril [Zestril] 5 mg PO DAILY 07/15/18 [History] Glyburide/Metformin HCl [Glyburide-Metformin 5-500 mg] 1 tab PO QPM 09/24/18 [History] Glyburide/Metformin HCl [Glyburide-Metformin 5-500 mg] 2 tab PO QAM 09/24/18 [History] Liraglutide [Victoza 2-Jose Cruz] 30 mg SQ Q48H 09/24/18 [History] Metformin HCl 500 mg PO QPM 09/24/18 [History] Pioglitazone HCl [Actos] 45 mg PO DAILY 09/24/18 [History] Polyethylene Glycol 3350 [MiraLAX] 17 gm PO DAILY PRN 09/24/18 [History] Aspirin Enteric Coated [Aspirin EC] 81 mg PO HS 11/17/18 [History] Dapagliflozin Propanediol [Farxiga] 5 mg PO DAILY 11/17/18 [History] Warfarin [Coumadin] 5 mg PO MOWE 11/17/18 [History] [place]-3/Dha/Epa/Fish Oil [Fish Oil 1,000 mg Softgel] 1 cap PO DAILY 03/11/19 [History] Warfarin [Coumadin] 7.5 mg PO SUTUTHFRSA 03/11/19 [History] Carvedilol [Coreg] 25 mg PO BID 04/15/19 [History] HYDROcodone/Acet 5/325 mg [[place] 5-325 mg] 1 tab PO Q6H PRN 5 Days #20 tab 04/15/19 [Rx] Omeprazole [PriLOSEC] 40 mg PO HS 05/18/19 [History] Allergy/AdvReac Type Severity Reaction Status Date / Time No Known Allergies Allergy Verified 04/15/19 13:38 All Systems Reviewed: The remainder of the systems were reviewed and are negative Physical Exam - Constitutional Vitals: Temp Pulse Resp BP Pulse Ox 98.1 F 68 16 154/79 97 05/19/19 11:26 05/19/19 11:26 05/19/19 11:26 05/19/19 11:26 05/19/19 11:26 Exam: CONSTITUTIONAL: awake alert and oriented VASCULAR: palpable pulses dp and pt, warm toes to tibia, cap refill <3 seconds, no calf pain with manual squeeze NEUROLOGICAL: minimal sensation to light or moderate touch, there is LOPS Musculoskeletal: muscle strength 5/5 and equal bilaterally. There is noted charcot deformity of the right foot SKIN: s/p surgical intervention if the right foot and ankle -lateral incision line: surrounding edema, erythema and mild warmth with purulent drainage. small pinpoint openings of drainage noted spotted along incision line. Incision line is healed with no signs of dehiscence -posterior aspect of heel- there is a large 2cmx2.2cmx0.3cm open wound with serosang drainage and mild surrounding edema, erythema and wamth. no odor. no tunneling or undermining noted. Results - Labs Result Diagrams: 05/19/19 04:58 05/19/19 07:08 Labs: Abnormal lab results WBC 12.4 K/mcL (4.3-11.1) H 05/19/19 04:58 RBC 3.27 M/mcL (4.19-5.50) L 05/19/19 04:58 Hgb 8.7 g/dL (12.9-16.9) L 05/19/19 04:58 Hct 28.5 % (37.5-50.1) L 05/19/19 04:58 MCH 26.6 pg (28.0-33.3) L 05/19/19 04:58 MCHC 30.5 g/dL (31.6-35.5) L 05/19/19 04:58 RDW 17.2 % (11.5-14.5) H 05/19/19 04:58 Plt Count 468 K/mcL (140-400) H 05/19/19 04:58 MPV 8.8 fL (9.4-12.4) L 05/19/19 04:58 Neutrophils # 9.6 K/mcL (1.6-8.9) H 05/19/19 04:58 PT 25.3 Seconds (9.4-12.1) H 05/19/19 07:08 APTT 50.4 Seconds (26.0-36.0) H 05/18/19 20:07 Sodium 135 mEq/L (136-145) L 05/19/19 07:08 Glucose 172 mg/dL (70-105) H 05/19/19 07:08 POC Glucose 192 mg/dL (70-99) H 05/19/19 05:36 Calcium 10.5 mg/dL (8.6-10.3) H 05/19/19 07:08 Total Bilirubin 0.2 mg/dL (0.3-1.0) L 05/18/19 20:07 AST 10 Units/L (13-39) L 05/18/19 20:07 Albumin 3.3 g/dL (3.5-5.7) L 05/18/19 20:07 Albumin/Globulin Ratio 0.9 (1.1-2.2) L 05/18/19 20:07 Crossmatch See Detail 05/19/19 11:25 H & H 05/18/19 05/19/19 Range/Units 20:07 04:58 Hgb 9.1 L 8.7 L (12.9-16.9) g/dL Hct 29.4 L 28.5 L (37.5-50.1) % All other labs normal. Consult Discharge Plan - Plan Referrals: Ed Holley MD [Primary Care Provider] -
[2019-05-19] MEDS ORDERED: 0.9 % Sodium Chloride 250 ML ONE (13:21)
[2019-05-19] MEDS ORDERED: Perflutren Lipid Microsphere 1.3 ML in 0.9 % Sodium Chloride 8.7 ML IVP ONE (13:44)
--- NOTE | 2019-05-19 14:11 | Anesthesia Evaluation PreOp ---
Date of Encounter: 05/19/19 Time of Encounter: 14:18 - Past History Planned Operation: revision right ankle fusion Cardiac History: HTN, Hyperlipidemia, Arrhythmia (a-fib, on coumadin), Pacemaker/ICD (for SSS), Other (CAD, chronic anemia) Pulmonary History: COPD, JEAN Dx (BiPAP) OYSTER HARVESTER History: Other (neuropathy) Other Medical History: GERD, Other (Hx DVT) Anesthesia History: No Prior Anesthetic Complications, Past Anesthesia (multiple ortho sxs, ORIF ankle 8-, appy) Alcohol Use: none Drug use: none Medications and Allergies Amitriptyline HCl 25 mg PO QPM 04/17/18 [History] Atorvastatin Calcium [Lipitor] 40 mg PO HS 04/17/18 [History] Cholecalciferol (Vitamin D3) [Vitamin D3] 5,000 unit PO DAILY 04/17/18 [History] Fenofibrate Nanocrystallized [Fenofibrate] 145 mg PO DAILY 04/17/18 [History] Furosemide [Lasix] 40 mg PO DAILY 04/17/18 [History] Multivitamin [Multivitamins] 1 each PO DAILY 04/17/18 [History] Testosterone [Androgel] 10 gm TD DAILY 04/17/18 [History] Ascorbic Acid [Vitamin C] 500 mg PO DAILY 07/15/18 [History] Lisinopril [Zestril] 5 mg PO DAILY 07/15/18 [History] Glyburide/Metformin HCl [Glyburide-Metformin 5-500 mg] 1 tab PO QPM 09/24/18 [History] Glyburide/Metformin HCl [Glyburide-Metformin 5-500 mg] 2 tab PO QAM 09/24/18 [History] Liraglutide [Victoza 2-Jose Cruz] 30 mg SQ Q48H 09/24/18 [History] Metformin HCl 500 mg PO QPM 09/24/18 [History] Pioglitazone HCl [Actos] 45 mg PO DAILY 09/24/18 [History] Polyethylene Glycol 3350 [MiraLAX] 17 gm PO DAILY PRN 09/24/18 [History] Aspirin Enteric Coated [Aspirin EC] 81 mg PO HS 11/17/18 [History] Dapagliflozin Propanediol [Farxiga] 5 mg PO DAILY 11/17/18 [History] Warfarin [Coumadin] 5 mg PO MOWE 11/17/18 [History] [place]-3/Dha/Epa/Fish Oil [Fish Oil 1,000 mg Softgel] 1 cap PO DAILY 03/11/19 [History] Warfarin [Coumadin] 7.5 mg PO SUTUTHFRSA 03/11/19 [History] Carvedilol [Coreg] 25 mg PO BID 04/15/19 [History] HYDROcodone/Acet 5/325 mg [[place] 5-325 mg] 1 tab PO Q6H PRN 5 Days #20 tab 04/15/19 [Rx] Omeprazole [PriLOSEC] 40 mg PO HS 05/18/19 [History] Allergy/AdvReac Type Severity Reaction Status Date / Time No Known Allergies Allergy Verified 04/15/19 13:38 - Meds/Allergy Pre-op Review Medications Reviewed: Yes Allergies Reviewed: Yes Beta Blockers on Current Med List: Yes (coreg) If Beta Blockers taken, Date/Time (Last Dose taken): 10-2 at 1339hrs Anesthesia Results - Labs 05/19/19 04:58 05/19/19 07:08 Laboratory Tests 05/19/19 07:08 INR 2.2 - Imaging Additional studies: echo 01-03: Impressions: Technically sub-optimal due to body habitus and poor echo windows. LVEF 55%. Indeterminate diastolic function. Definity echo contrast was used. Atypical septal motion consistent with paced rhythm. Unable to estimate RVSP due to lack of TR jet. A linear echodensity which may represent device lead was visualized in the right atrium and right ventricle. Anesthesia Exam Selected Entries 05/19/19 13:46 Temperature 98.2 F Pulse Rate 66 Respiratory Rate 19 Blood Pressure 151/64 Blood Pressure Mean 93 O2 Sat by Pulse Oximetry 96 Weight: 163kg BMI 48 NPO (# of Hours): 8 - HEENT Pupil (Motor): EOMI Mallampati: III Teeth: Normal Oral Opening: Greater than 3 - OYSTER HARVESTER LOC: Oriented - Cardiac Rhythm: Regular - Pulmonary Breath Sounds: bilateral Clear Respiratory Effort: Symmetrical Anesthesia Assess/Plan ASA Score: 4 Level of consciousness: Cooperative, Oriented Anesthetic Plan: General, Regional Nerve Block (unable to do due to elevated INR) Monitoring Plan: Standard Monitors Recovery Plan: PACU (agrees to GA. Has received one unit PRBCs)
[2019-05-19] MEDS ORDERED: traMADol 50 MG TABLET PO PRN (14:20)
[2019-05-19] MEDS ORDERED: *HR* Promethazine 25 MG/ML VIAL IVP PRN (14:20)
[2019-05-19] MEDS ORDERED: *HR* HYDROmorphone (PF) 1 MG/ML SYRINGE IVP PRN (14:20)
[2019-05-19] MEDS ORDERED: Lidocaine 1% 20 ML MDV ONE (14:28)
[2019-05-19] MEDS ORDERED: Bupivacaine/EPI 1:200k 0.25%PF 30 ML VIAL ONE (14:28)
[2019-05-19] MEDS ORDERED: Ringers Solution, Lactated 1,000 ML IVC SCH (14:30)
--- NOTE | 2019-05-19 14:42 | Electrocardiograph Report ---
[address] [address] Test Date: 2019-05-18 Pat Name: Jason Barth Department: EXAM3 Room: [facility] Gender: M Grill Cook: : 1955 Requested By: [id number] Order Number: [id number] Reading MD: Jesse Johns Measurements Intervals [place] Rate: 80 P: -52 KS: 239 QRS: -54 QRSD: 105 T: 74 QT: 355 QTc: 410 Interpretive Statements Sinus or ectopic atrial rhythm Prolonged KS interval Inferior infarct, old Anterior infarct, old Electronically Signed On 05-19-2019 14:40:46 EDT by Jesse Johns
--- NOTE | 2019-05-19 15:52 | Event Note ---
Date of Encounter: 05/19/19 Time of Encounter: 15:43 - Cardiology Event Note Let this serve as an Addendum to Resident Physician Cardiology note. Patient was independently examined and medical decision-making was reviewed with the Resident Physician. Mr. Barth presents from the outpatient setting for a podiatric surgery for Charcot foot. This is patient's 3rd surgery in 3 months done under general anesthesia without cardiac complication. Cardiology was asked to see patient due to findings of NSVT overnight on telemetry. Arrhythmia was nocturnal in setting of sleep apnea. No evidence for dysrhythmia over the daytime. Echo demonstrated preserved LV systolic function. History of nonobstructive CAD. Normal electrolytes. Chronic anemia, possibly worse receiving blood. Discussed with patient his CV risk surrounding surgery. He appears to have undergone 2 other similar procedures on his foot in the last 2 months under general anesthesia without cardiac complication. Surgery to prevent disability appears urgent. Any further cardiac testing would delay his surgery possibly contributing to disability and worsening comorbidities. Furthermore, chronic anemia may prevent consideration for DAPT. He did receive 1u PRBCs today. Recommend proceeding with surgery with acceptable cardiac risk and careful anesthesia guidance.
[2019-05-19] MEDS ORDERED: Aspirin Enteric Coated 81 MG Tablet PO SCH (21:00)
[2019-05-20] MEDS: Insulin LISPRO 300 UNITS/3 ML VIAL SQ SCH ×3 (00:18→12:25)
[2019-05-20 04:47] LABS: INR 1.7; Prothrombin Time 19.3 Seconds (9.4-12.1)
[2019-05-20 04:50] LABS: Basophils % 0.3 %; Eosinophils # 0.2 K/mcL (0.0-0.6); Eosinophils % 2.2 %; Hematocrit 28.6 % (37.5-50.1); Hemoglobin 8.8 g/dL (12.9-16.9); Immature Granulocytes % 0.7 % (0-4); Lymphocytes # 1.6 K/mcL (0.6-4.6); Lymphocytes % 14.4 %; Mean Corpuscular HGB Conc 30.8 g/dL (31.6-35.5); Mean Corpuscular Hemoglobin 26.9 pg (28.0-33.3); Mean Corpuscular Volume 87.5 fL (83.0-100.0); Mean Platelet Volume 8.9 fL (9.4-12.4); Monocytes # 0.9 K/mcL (0.0-1.3); Monocytes % 8.5 %; Neutrophils # 7.9 K/mcL (1.6-8.9); Platelet Count 457 K/mcL (140-400); Red Blood Count 3.27 M/mcL (4.19-5.50); Red Cell Distribution Width 17.4 % (11.5-14.5); Segmented Neutrophils % 73.9 %; White Blood Count 10.7 K/mcL (4.3-11.1)
[2019-05-20 04:53] LABS: BUN/Creatinine Ratio 22 (6-26); Blood Urea Nitrogen 21 mg/dL (8-23); Carbon Dioxide 24 mEq/L (23-29); Chloride 102 mEq/L (98-107); Glucose 235 mg/dL (70-105); Osmolality,Calculated 287 (280-300); Potassium 4.1 mEq/L (3.5-5.1); Sodium 133 mEq/L (136-145); eGFR For African Americans > 60 (> 60); eGFR For Non-African Americans > 60 (> 60)
[2019-05-20] MEDS ORDERED: Lidocaine -MPF 2% 2 ML VIAL ONE ×3 (05:43→20:17)
[2019-05-20] MEDS ORDERED: Ondansetron 4 MG/2 ML VIAL ONE ×2 (05:43→18:15)
[2019-05-20] MEDS ORDERED: *HR* Succinylcholine 200 MG/10 ML VIAL IVP ONE (05:43)
[2019-05-20] MEDS ORDERED: *HR* PHENYLEPHRINE 1,000 MCG/10 ML SYRINGE IVP ONE (05:43)
[2019-05-20] MEDS ORDERED: *HR* Rocuronium Bromide 50 MG/5 ML VIAL ONE (05:43)
[2019-05-20] MEDS ORDERED: Dexamethasone 4 MG/ML VIAL ONE ×3 (05:43→20:31)
[2019-05-20] MEDS ORDERED: *HR* Propofol 200 MG/20 ML VIAL IVP ONE ×2 (05:44→18:15)
[2019-05-20] MEDS ORDERED: *HR* FentaNYL (PF) 100 MCG/2 ML VIAL ONE ×2 (05:44→18:15)
[2019-05-20] MEDS ORDERED: Lidocaine HCL 4 ML Topical Solution (Laryng-O-Jet Kit Sterile Pak) TP ONE (06:07)
[2019-05-20] MEDS ORDERED: Heparin 1,000 UNITS/500 mL 0 ML ONE (06:09)
--- NOTE | 2019-05-20 07:20 | Internal Med Progress Note ---
<Evette Peck - Last Filed: 05/20/19 14:44> Hospitalist Progress Note - Encounter Date of Encounter: 05/20/19 - Exam Vitals: Temp Pulse Resp BP Pulse Ox 97.9 F 92 16 148/76 99 05/20/19 06:41 05/20/19 06:41 05/20/19 06:41 05/20/19 06:41 05/20/19 09:00 - Assessment and Plan (1) Charcot foot due to diabetes mellitus Current Visit: Yes Status: Acute (2) Abnormal EKG Current Visit: Yes Status: Acute (3) Leukocytosis Current Visit: Yes Status: Acute (4) Hyponatremia Current Visit: Yes Status: Acute (5) Decreased hemoglobin Current Visit: Yes Status: Chronic (6) Diabetes mellitus Current Visit: Yes Status: Chronic (7) Sleep apnea Current Visit: Yes Status: Chronic - Time Spent with Patient Total time spent is greater than 50% in coordination of care (as documented) at patient's floor/unit and/or counseling patient: Internal Medicine: Result - Labs CBC & Chem 7: 05/20/19 04:00 05/20/19 04:00 Labs: Short CBC 05/20/19 Range/Units 04:00 WBC 10.7 (4.3-11.1) K/mcL Hgb 8.8 L (12.9-16.9) g/dL Hct 28.6 L (37.5-50.1) % Plt Count 457 H (140-400) K/mcL Neutrophils # 7.9 (1.6-8.9) K/mcL BMP 05/20/19 04:00 Sodium 133 L Potassium 4.1 Chloride 102 Carbon Dioxide 24 BUN 21 Creatinine 0.95 Glucose 235 H Calcium 10.0 - ABG Interpretation ABG results: PT/INR, D-dimer PT 19.3 Seconds (9.4-12.1) H 05/20/19 04:00 - Impressions Impressions Echocardiogram 05/19/19 14:05 Impressions: LVEF 55-60%. Mildly dilated left ventricle. Mild concentric left ventricular hypertrophy. RV was not well visualized. Grossly, function is normal. No pulmonary hypertension. No significant valvular dysfunction. Left Ventricular Wall Motion: Rest Echo Findings All wall segments showed normal motion. Findings: Study Quality * Technically sub-optimal due to body habitus. ECG Findings * Normal sinus rhythm. Left Ventricle * LVEF 55-60%. * Mildly dilated left ventricle. * Mild concentric left ventricular hypertrophy. Right Ventricle * RV was not well visualized. Grossly, function is normal. Left Atrium * Mildly dilated left atrium. Right Atrium * Normal right atrial size. Interatrial Septum * Interatrial septum not well evaluated. Aortic Valve * Aortic valve not well visualized. * No aortic stenosis. * No aortic regurgitation. Mitral Valve * Normal mitral valve structure and function. * No mitral regurgitation. * No mitral stenosis. Tricuspid Valve * Normal tricuspid valve structure and function. * Trace tricuspid regurgitation. * No pulmonary hypertension. * Estimated RVSP is 33 mmHg. * Estimated RA pressure is 3 mmHg. Pulmonic Valve * Pulmonic valve is not well visualized. * No pulmonic regurgitation. Aorta * Normally sized aortic root. Pericardium * The pericardium appears normal. IVC * Normal IVC dimensions and inspiratory collapse. Pulmonary Artery * Pulmonary artery not well visualized. Device lead * A device lead was visualized in the right atrium and right ventricle. Consult Discharge Plan - Plan Referrals: Ed Holley MD [Primary Care Provider] - - Attending Attestation I examined this patient and my medical decision-making was reviewed with the Resident Physician Alex. I agree with the documented findings, disposition and treatment plan as described except to the extent set forth below. Mr Barth is being observed for Charcot foot requiring surgical intervention awake, family at bedside. no pain, awaiting or, no complaints gen- alert, awake,appears stated age cv- reg rate and rhythm, normal s1,s2 lungs- ctabl, normal resp effort on room air msk- right foot dressing c/d/i neuro- AAOx3 Charcot Foot requiring surgical intervention- podiatry to OR today Pre op Risk assessment as per cardiology appreciated Afib hx on AC- INR is 1.7 today, cont to monitor, holding warfarin in prep for OR, defer to podiatry as to when ok to resume Mild leukocytosis, afebrile suspected reactive- resolved without intervention Chronic anemia on AC, possibly related, at baseline- will monitor further dx and plan as noted by resident <Jana Johnson - Last Filed: 05/20/19 18:08> Hospitalist Progress Note - Encounter Date of Encounter: 05/20/19 Time of Encounter: 10:05 - Subjective Interval History: Patient presents for right Charcot foot, and is scheduled for surgery today with Dr. Barahona. This is third surgical repair for same problem in the right foot. Patient had abnormal ECG with new T-wave inversion at aVL as compared with 04/21/18. Yesterday, had runs of NSVT; Cardiology evaluated with echocardiogram and cleared him for surgery today. Today, he reports feeling fine. He endorses mild left posterior knee pain, associated with former knee replacement; he does not feel he needs pain medication for this. Otherwise, he slept well and denies further issues. - Exam Vitals: Temp Pulse Resp BP Pulse Ox 97.9 F 92 16 148/76 97 05/20/19 06:41 05/20/19 06:41 05/20/19 06:41 05/20/19 06:41 05/20/19 06:41 Exam: GENERAL: Conversant, in no acute distress. EYES: Anicteric, clear sclerae. Pupils equal and reactive to light bilaterally. HENT: Atraumatic, normocephalic. Moist mucosa. CV: Regular rate and rhythm. Normal S1 and S2. No murmurs, clicks, or gallops. RESPIRATORY: Clear to auscultation bilaterally. No wheezes, rhonchi, or rales. ABDOMEN: Soft, nontender, nondistended. Normal bowel sounds. EXTREMITIES: Right ankle and foot are obscured by bandages which are clean, dry, intact. Peripheral pulses 2/4 bilaterally. Capillary refill <2 sec. No edema present. SKIN: No rashes or lesions. NEUROLOGICAL: diminished sensation to plantar aspect right foot. Sensation to light touch on dorsal aspect of right foot is intact. Sensation to light touch on plantar and dorsal aspects of left foot are present. - Assessment and Plan (1) Charcot foot due to diabetes mellitus Current Visit: Yes Status: Acute Assessment and Plan: Patient is scheduled for surgical repair of right Charcot foot this afternoon. Await recommendations from podiatry regarding any changes in pain management Received home dose Coreg before his surgery We will order H and H postop. -Will resume home Coumadin when Podiatry clears him to restart. (2) Abnormal EKG Current Visit: Yes Status: Acute Assessment and Plan: Patient had T-wave inversion on aVL which was new from 04/21/18. Also has had runs of NSVT on telemetry. Cardiology was consulted. Patient cleared for surgery. Suspect secondary to JEAN. (3) Decreased hemoglobin Current Visit: Yes Status: Chronic Assessment and Plan: Hemoglobin yesterday was low at 8.7. Patient received 1 unit packed red blood cells. Hemoglobin today was still low at 8.8. We will continue to monitor with 4 AM CBCs. (4) Leukocytosis Current Visit: Yes Status: Acute Assessment and Plan: Leukocytosis today is improved to 10.7. We will continue to monitor with CBC. (5) Hyponatremia Current Visit: Yes Status: Acute Assessment and Plan: Sodium today was low at 133. We will continue to monitor with BMP. (6) Diabetes mellitus Current Visit: Yes Status: Chronic Assessment and Plan: Ja-ERMELINDA Kamara (7) Sleep apnea Current Visit: Yes Status: Chronic Assessment and Plan: Continue CPAP - Time Spent with Patient Total time spent is greater than 50% in coordination of care (as documented) at patient's floor/unit and/or counseling patient: Internal Medicine: Result - Labs CBC & Chem 7: 05/20/19 04:00 05/20/19 04:00 Labs: Short CBC 05/20/19 Range/Units 04:00 WBC 10.7 (4.3-11.1) K/mcL Hgb 8.8 L (12.9-16.9) g/dL Hct 28.6 L (37.5-50.1) % Plt Count 457 H (140-400) K/mcL Neutrophils # 7.9 (1.6-8.9) K/mcL BMP 05/19/19 05/20/19 07:08 04:00 Sodium 135 L 133 L Potassium 4.0 4.1 Chloride 103 102 Carbon Dioxide 27 24 BUN 21 21 Creatinine 1.04 0.95 Glucose 172 H 235 H Calcium 10.5 H 10.0 - ABG Interpretation ABG results: PT/INR, D-dimer PT 19.3 Seconds (9.4-12.1) H 05/20/19 04:00 - Impressions Impressions Echocardiogram 05/19/19 14:05 Impressions: LVEF 55-60%. Mildly dilated left ventricle. Mild concentric left ventricular hypertrophy. RV was not well visualized. Grossly, function is normal. No pulmonary hypertension. No significant valvular dysfunction. Left Ventricular Wall Motion: Rest Echo Findings All wall segments showed normal motion. Findings: Study Quality * Technically sub-optimal due to body habitus. ECG Findings * Normal sinus rhythm. Left Ventricle * LVEF 55-60%. * Mildly dilated left ventricle. * Mild concentric left ventricular hypertrophy. Right Ventricle * RV was not well visualized. Grossly, function is normal. Left Atrium * Mildly dilated left atrium. Right Atrium * Normal right atrial size. Interatrial Septum * Interatrial septum not well evaluated. Aortic Valve * Aortic valve not well visualized. * No aortic stenosis. * No aortic regurgitation. Mitral Valve * Normal mitral valve structure and function. * No mitral regurgitation. * No mitral stenosis. Tricuspid Valve * Normal tricuspid valve structure and function. * Trace tricuspid regurgitation. * No pulmonary hypertension. * Estimated RVSP is 33 mmHg. * Estimated RA pressure is 3 mmHg. Pulmonic Valve * Pulmonic valve is not well visualized. * No pulmonic regurgitation. Aorta * Normally sized aortic root. Pericardium * The pericardium appears normal. IVC * Normal IVC dimensions and inspiratory collapse. Pulmonary Artery * Pulmonary artery not well visualized. Device lead * A device lead was visualized in the right atrium and right ventricle. <Evette Peck M - Last Filed: 05/20/19 14:44> (3) Leukocytosis Qualifiers: Leukocytosis type: unspecified Qualified Code(s): D72.829 - Elevated white blood cell count, unspecified (6) Diabetes mellitus Qualifiers: Diabetes mellitus type: type 2 Qualified Code(s): E11.9 - Type 2 diabetes mellitus without complications (7) Sleep apnea Qualifiers: Sleep apnea type: unspecified type Qualified Code(s): G47.30 - Sleep apnea, unspecified <Jana Johnson L - Last Filed: 05/20/19 18:08> (4) Leukocytosis Qualifiers: Leukocytosis type: unspecified Qualified Code(s): D72.829 - Elevated white blood cell count, unspecified (6) Diabetes mellitus Qualifiers: Diabetes mellitus type: type 2 Qualified Code(s): E11.9 - Type 2 diabetes mellitus without complications (7) Sleep apnea Qualifiers: Sleep apnea type: unspecified type Qualified Code(s): G47.30 - Sleep apnea, unspecified
[2019-05-20] MEDS ORDERED: *HR* Phytonadione 10 MG/ML AMPUL SQ ONE (07:23)
--- NOTE | 2019-05-20 07:59 | Podiatry Progress Note ---
Date of Encounter: 05/20/19 Time of Encounter: 07:00 - Assessment and Plan (1) Charcot ankle Current Visit: No Status: Chronic discussed with patient again his condition plan of care and procedure moving forward and he is in agreement to proceed. nature of the procedure, risks vs benefits potential complications and consequences of surgery and his condition discussed at length including but not limited to infection, bleeding, swelling, heart attack, , pulmonary embolism, delayed or non-union (non-healing) of bone fusion, loss of leg, wound healing problems, need for further surgery etc. no guarantees made that his limb is salvagable and it was explained he could end up with an amputation of his leg due to the condition. plan for surgery later today. Qualifiers: Laterality: right Qualified Code(s): M14.671 - Charcot's joint, right ankle and foot Subjective Interval history: patient seen bedside. RBC transfusion yesterday. had echo and evaluated by cardiology. denies f/c/n/v/sob/cp/calf pain. Objective - Vital Signs Vital Signs: Vital Signs Temp Pulse Resp BP Pulse Ox 05/20/19 06:41 97.9 F 92 16 148/76 97 05/20/19 04:14 97.6 F 89 17 150/69 96 05/20/19 00:23 77 122/57 05/19/19 22:55 98.2 F 66 17 169/75 98 05/19/19 18:32 98.1 F 64 17 133/76 97 05/19/19 17:17 98.8 F 64 16 112/48 97 05/19/19 16:55 97.8 F 61 18 144/57 98 05/19/19 13:46 98.2 F 66 19 151/64 96 05/19/19 13:31 98.0 F 69 20 156/62 96 05/19/19 11:26 98.1 F 68 16 154/79 97 05/19/19 10:31 98 Intake and Output 05/19/19 05/19/19 05/20/19 15:59 23:59 07:59 Intake Total 0 / 540 540 / 540 Output Total 1600 / 3250 1650 / 3250 Balance -1600 / -2710 -1110 / -2710 Intake: Oral 0 / 240 240 / 240 Blood Product 0 / 300 300 / 300 Rbcs Leuko Poor As-1 Unit 0 / 300 300 / 300 [id number] Output: Urine 1600 / 3250 1650 / 3250 Other: Meal Dinner Percent of Meal Consumed 100% Weight 163 kg Blood Glucose* 140 222 239 Patient Weight 05/20/19 23:59 Weight 163 kg - Exam Exam: well developed obese male in no acute distress splint clean, dry and intact. No bloody drainage or strikethrough. absent protective sensation. - Lab Result Diagrams: 05/20/19 04:00 05/20/19 04:00 Labs: Abnormal lab results WBC 12.4 K/mcL (4.3-11.1) H 05/19/19 04:58 RBC 3.27 M/mcL (4.19-5.50) L 05/20/19 04:00 Hgb 8.8 g/dL (12.9-16.9) L 05/20/19 04:00 Hct 28.6 % (37.5-50.1) L 05/20/19 04:00 MCH 26.9 pg (28.0-33.3) L 05/20/19 04:00 MCHC 30.8 g/dL (31.6-35.5) L 05/20/19 04:00 RDW 17.4 % (11.5-14.5) H 05/20/19 04:00 Plt Count 457 K/mcL (140-400) H 05/20/19 04:00 MPV 8.9 fL (9.4-12.4) L 05/20/19 04:00 Neutrophils # 9.6 K/mcL (1.6-8.9) H 05/19/19 04:58 PT 19.3 Seconds (9.4-12.1) H 05/20/19 04:00 APTT 50.4 Seconds (26.0-36.0) H 05/18/19 20:07 Sodium 133 mEq/L (136-145) L 05/20/19 04:00 Glucose 235 mg/dL (70-105) H 05/20/19 04:00 POC Glucose 239 mg/dL (70-99) H 05/20/19 06:10 Calcium 10.5 mg/dL (8.6-10.3) H 05/19/19 07:08 Total Bilirubin 0.2 mg/dL (0.3-1.0) L 05/18/19 20:07 AST 10 Units/L (13-39) L 05/18/19 20:07 Albumin 3.3 g/dL (3.5-5.7) L 05/18/19 20:07 Albumin/Globulin Ratio 0.9 (1.1-2.2) L 05/18/19 20:07 Crossmatch See Detail 05/19/19 11:25 Consult Discharge Plan - Plan Referrals: Ed Holley MD [Primary Care Provider] -
[2019-05-20] MEDS ORDERED: Furosemide 40 MG TABLET PO SCH (09:00)
[2019-05-20] MEDS ORDERED: Cholecalciferol (D-3) 1,000 UNIT (25MCG) TABLET PO SCH (09:00)
[2019-05-20] MEDS ORDERED: Fenofibrate 54 MG TABLET PO SCH (09:00)
[2019-05-20] MEDS ORDERED: Dapagliflozin Propanediol [Farxiga] 5 MG PO SCH (09:00)
[2019-05-20] MEDS ORDERED: Ascorbic Acid 500 MG TABLET PO SCH (09:00)
[2019-05-20] MEDS ORDERED: Bupivacaine/EPI 1:200k 0.25%PF 30 ML VIAL ONE (17:06)
[2019-05-20] MEDS ORDERED: Lidocaine 1% 20 ML MDV ONE (17:06)
[2019-05-20] MEDS ORDERED: Calcium Gluconate 1,000 MG/10 ML VIAL ONE (17:47)
[2019-05-20] MEDS ORDERED: Propofol 500 MG/50 ML INFUS..BTL ONE (18:15)
[2019-05-20] MEDS ORDERED: *HR* Midazolam HCl 2 MG/2 ML VIAL ONE (18:15)
[2019-05-20] MEDS ORDERED: Vancomycin 1,000 MG VIAL ONE (18:16)
[2019-05-20] MEDS ORDERED: CeFAZolin Syr 3,000MG/30 ML 3,000 MG/30 ML SYRINGE IVPB ONE (19:02)
[2019-05-20] MEDS ORDERED: *HR* HYDROMORPHONE 2 MG/ML VIAL ONE (19:16)
[2019-05-20] MEDS ORDERED: *HR* Magnesium Sulfate 1 GM/2 ML VIAL ONE (20:31)
--- NOTE | 2019-05-20 21:04 | Operative Note ---
Date of procedure: 05/20/19 Pre-op diagnosis: right ankle charcot Post-op diagnosis: same Procedure: Revision of right ankle arthodesis Application of multiplane external fixator Implants: SEAL external fixator Steinmann pins Iliac Crest bone graft Nucell PRP DBM plus Complications: none Anesthesia: GETA Surgeon: Daniel Barahona Was there an shampoo assistant present: No Estimated blood loss (cc): 50 Specimen: none Condition: stable Disposition: PACU Procedure in Detail: Indications: 63-year-old diabetic male with Charcot Neuroarthropathy and unstable ankle nonadherent to postoperative instruction and also fall which he just reported causing him to put a significant amount of pressure on his foot and ankle resulting in disruption of his ankle arthrodesis site prior to his appointment last Friday is being brought to the operating room for removal of hardware and revision of his ankle arthrodesis and application of external fixation frame to the right lower extremity. All of his questions had been answered and the informed consent was signed. No guarantees were made as to the outcome of any procedure and the serious nature of his condition and possibility that his limb is not salvageable was discussed with the patient on multiple occasions. Patient had been admitted to the hospitalist, seen and evaluated by cardiology and received a unit of packed red blood cells deemed stable for the operating room and was taken to the operating room and placed on the operating room table in the supine position. The right lower extremity was scrubbed prepped and draped in the usual sterile fashion. The following procedures then began after inflating the right thigh tourniquet to 300 mmHg. Removal of hardware, revision of right ankle arthrodesis, application of multiplane external fixator. Attention was directed lateral aspect of the patient's right ankle #10 blade was used to make an incision through the previous surgical scar and blunt dissection was carried out through the scar tissue. Minimal bleeding through the scar tissue and incision was present. There was some evidence of hematoma clotted blood which was removed. Bovie was used to cauterize smaller bleeding veins. Once down to the level of the plate which was previously applied the plate and screws were removed without incident. Next the sagittal saw was used to resect fibrous scar tissue from the previous arthrodesis site and drill was used to freshen the ends of the bone. There was a void in the subtalar fusion area which was filled with bone graft and an iliac crest wedge. The bone ends of the foot and the tibia were then reapproximated and pinned into position with 3 large Steinmann pins. Patient had fracture zone through posterior aspect of calcaneus which was also joystick then pinned into alignment with a Steinmann pin with the fusion zone reduced into position a multiplane external fixator was then applied with compression struts. The external fixator was assembled and applied to the patient's right lower extremity being able to fit at least two finger breadths circumferentially around his leg and foot. Two wires were thrown distally in the calcaneus and tensioned appropriately. Next attention was directed to the proximal ring where a two skinny wires were thrown into the tibia securing his leg to the frame. Two skinny wire were then thrown in the middle ring and wires were tensioned appropriately. A wire was then thrown in the calcaneus directly underneath the tibia and wire walked proximal to provide compression through the fusion zone. A wire was thrown through the posterior tuber the calcaneus and tensioned appropriately to stabilize the fractured zone of the calcaneus to the body of the calcaneus and fusion zone. Wires were tensioned appropriately. Wires were then thrown across the metatarsals and midfoot and the wires were tensioned appropriately. The patient's right foot and ankle clinically was stable with the multiplane external fixator. C-arm was used to confirm apposition of the fusion zone. The lateral ankle incision had been irrigated and PRP was applied and 0 Vicryl was used to close the deep and subcutaneous tissue and donta in Prolene were used to reapproximate the skin. Xeroform was applied around all pin sites as well as 4x4 gauze, abdominal pads, kirt, kerlix and JONO wraps. C- arm was utilized intraoperatively to confirm placement and alignment of the wires and pins. The tourniquet was deflated prior to application of the bandages and adequate hemostasis was present. Patient tolerated the anesthesia and the procedure well and was escorted to the recovery room with vital signs stable and vascular status intact to the right foot. Instructed to remain non-wb to the right lower extremity. Patient will return to the floor.
[2019-05-20] MEDS ORDERED: Naloxone 0.4 MG/ML INJ IVP PRN (21:28)
[2019-05-20] MEDS ORDERED: D5% in Water 1,000 ML IVC PRN (21:28)
[2019-05-20] MEDS ORDERED: Dextrose Gel 15 GM/37.5 ML TUBE PO PRN ×2 (21:28)
[2019-05-20] MEDS ORDERED: *HR* Dextrose 50 % in Water (Syg) 50 ML SYRINGE IVP PRN (21:28)
--- NOTE | 2019-05-20 21:47 | Anesthesia Evaluation Post Op ---
Date of Encounter: 05/20/19 Time of Encounter: 21:10 - Vital Signs Vital Signs: Vital Signs/O2 Sat/Glucose, Most Current Temp Pulse Resp BP Pulse Ox 05/20/19 21:24 98 F 67 16 146/65 94 05/20/19 21:13 98.9 F 65 16 147/62 94 05/20/19 21:03 65 12 132/65 94 05/20/19 20:53 63 12 131/61 93 05/20/19 20:43 98.6 F 65 12 129/90 96 - Lungs Lungs: Clear Ascult./Percussion - Airway Airway: Non-obstructed - Cardiovascular Regular Rate, Baseline Rhythm - Mental Status Mental Status: Alert & Oriented, Answers Appropriately - Pain Pain Scale: 0 - Nausea Vomiting Nausea Vomiting: Not Present - Hydration Hydration: Tolerates oral liquids, Has not voided - Discharge PostOp Status: Transfer Patient to floor
[2019-05-21] MEDS ORDERED: ceFAZolin 2,000 MG in 0.9 % Sodium Chloride 100 ML IVPB SCH
[2019-05-21] MEDS ORDERED: Insulin LISPRO 300 UNITS/3 ML VIAL SQ SCH
[2019-05-21] MEDS: *HR* HYDROcodone/Acet 5/325 mg TABLET PO PRN ×3 (00:34→13:50)
[2019-05-21] MEDS: ceFAZolin 2,000 MG in 0.9 % Sodium Chloride 100 ML IVPB SCH ×3 (03:59→20:00)
[2019-05-21 05:28] LABS: Basophils % 0.1 %; Hematocrit 30.5 % (37.5-50.1); Hemoglobin 9.2 g/dL (12.9-16.9); Immature Granulocytes % 0.7 % (0-4); Lymphocytes # 0.5 K/mcL (0.6-4.6); Lymphocytes % 3.4 %; Mean Corpuscular HGB Conc 30.2 g/dL (31.6-35.5); Mean Corpuscular Hemoglobin 26.6 pg (28.0-33.3); Mean Corpuscular Volume 88.2 fL (83.0-100.0); Monocytes # 0.3 K/mcL (0.0-1.3); Monocytes % 2.1 %; Neutrophils # 12.9 K/mcL (1.6-8.9); Platelet Count 473 K/mcL (140-400); Red Blood Count 3.46 M/mcL (4.19-5.50); Red Cell Distribution Width 16.8 % (11.5-14.5); Segmented Neutrophils % 93.7 %; White Blood Count 13.7 K/mcL (4.3-11.1)
[2019-05-21 06:07] LABS: BUN/Creatinine Ratio 20 (6-26); Blood Urea Nitrogen 18 mg/dL (8-23); Calcium 9.8 mg/dL (8.6-10.3); Carbon Dioxide 25 mEq/L (23-29); Chloride 100 mEq/L (98-107); Glucose 308 mg/dL (70-105); Osmolality,Calculated 286 (280-300); Potassium 4.2 mEq/L (3.5-5.1); Sodium 131 mEq/L (136-145); eGFR For African Americans > 60 (> 60); eGFR For Non-African Americans > 60 (> 60)
[2019-05-21] MEDS: Fenofibrate 54 MG TABLET PO SCH (08:39)
[2019-05-21] MEDS: Ascorbic Acid 500 MG TABLET PO SCH (08:39)
[2019-05-21] MEDS: Furosemide 40 MG TABLET PO SCH (08:39)
[2019-05-21] MEDS: Cholecalciferol (D-3) 1,000 UNIT (25MCG) TABLET PO SCH (08:39)
[2019-05-21] MEDS: Insulin LISPRO 300 UNITS/3 ML VIAL SQ SCH ×3 (08:40→17:39)
[2019-05-21] MEDS: FARXIGA 5MG PO SCH (08:40)
--- NOTE | 2019-05-21 09:46 | Internal Med Progress Note ---
<Evette Peck - Last Filed: 05/21/19 17:59> Hospitalist Progress Note - Encounter Date of Encounter: 05/21/19 - Exam Vitals: Temp Pulse Resp BP Pulse Ox 98.3 F 60 18 136/60 97 05/21/19 17:19 05/21/19 17:19 05/21/19 17:19 05/21/19 17:19 05/21/19 17:19 - Assessment and Plan (1) Charcot foot due to diabetes mellitus Current Visit: Yes Status: Acute (2) Abnormal EKG Current Visit: Yes Status: Acute (3) Leukocytosis Current Visit: Yes Status: Acute (4) Hyponatremia Current Visit: Yes Status: Acute (5) Decreased hemoglobin Current Visit: Yes Status: Chronic (6) Diabetes mellitus Current Visit: Yes Status: Chronic (7) Sleep apnea Current Visit: Yes Status: Chronic - Time Spent with Patient Total time spent is greater than 50% in coordination of care (as documented) at patient's floor/unit and/or counseling patient: Internal Medicine: Result - Labs CBC & Chem 7: 05/21/19 05:04 05/21/19 05:04 Labs: Short CBC 05/21/19 Range/Units 05:04 WBC 13.7 H (4.3-11.1) K/mcL Hgb 9.2 L (12.9-16.9) g/dL Hct 30.5 L (37.5-50.1) % Plt Count 473 H (140-400) K/mcL Neutrophils # 12.9 H (1.6-8.9) K/mcL BMP 05/21/19 05:04 Sodium 131 L Potassium 4.2 Chloride 100 Carbon Dioxide 25 BUN 18 Creatinine 0.89 Glucose 308 H Calcium 9.8 - ABG Interpretation ABG results: PT/INR, D-dimer PT 19.3 Seconds (9.4-12.1) H 05/20/19 04:00 - Impressions Impressions Fluoroscopy 05/20/19 22:20 IMPRESSION: Intra procedural images. See procedure note for further details. D/ / Misti Lomas Cha, MD / Misti Lomas Cha, MD Interpreting Provider: Misti Lomas Cha, MD Consult Discharge Plan - Plan Referrals: Ed Holley MD [Primary Care Provider] - - Attending Attestation I examined this patient and my medical decision-making was reviewed with the Resident Physician Alex. I agree with the documented findings, disposition and treatment plan as described except to the extent set forth below. Mr Barth is being observed for Charcot foot requiring surgical intervention awake, no pain, fevers or chills gen- alert, awake,appears stated age cv- reg rate and rhythm, normal s1,s2 lungs- ctabl, msk- right foot dwith external fixator and drain neuro- AAOx3 Charcot Foot requiring surgical intervention- post op, as d/w podiatry given his complications in past requires 2w ancef, will dispo likely to snf, ok to resume warfarin per podiatry and monitor for bleeding Afib hx on AC, NSR- resume warfarin tonight Chronic anemia on AC, possibly related, at baseline- will monitor further dx and plan as noted by resident <Jana Johnson L - Last Filed: 05/21/19 18:30> Hospitalist Progress Note - Encounter Date of Encounter: 05/21/19 Time of Encounter: 10:05 - Subjective Interval History: Jason Barth is a 63-year-old male with PMH of DM, HTN, sick sinus syndrome with pacer, A. fib, DVT, COPD, JEAN, GERD, anemia. He presents before surgery for Charcot foot on the right. Surgery was performed yesterday evening. This morning he reports that he is not feeling a lot of pain. He has had some doses of [place] for moderate pain. He has not seen the surgeon yet today. Cardiology scanned his pacemaker and reported that it looks good. He says that he feels well so far. - Exam Vitals: Temp Pulse Resp BP Pulse Ox 98.5 F 60 20 162/66 96 05/21/19 03:42 05/21/19 07:17 05/21/19 07:17 05/21/19 07:17 05/21/19 07:17 Exam: GENERAL: Conversant. In no acute distress. EYES: Anicteric, clear sclerae. Pupils equal and reactive to light bilaterally. HENT: Atraumatic, normocephalic. Moist mucosa. NECK: Normal carotid pulses. Supple. CV: Regular rate and rhythm. Normal S1 and S2. No murmurs, clicks, or gallops. RESPIRATORY: Clear to auscultation bilaterally. No wheezes, rhonchi, or rales. ABDOMEN: Soft, nontender, nondistended. Normal bowel sounds. EXTREMITIES: External fixation and surgical dressing is present on right foot. Dressings are clean, dry, intact. Peripheral pulses 2/4 bilaterally. Capillary refill <2 sec. SKIN: Warm, dry. No rashes or lesions. No rashes or lesions. NEUROLOGICAL: Diminished sensation to plantar aspect of right foot. Sensation to light touch on dorsal aspect of right foot, and plantar and dorsal aspects left foot are all intact. - Assessment and Plan (1) Charcot foot due to diabetes mellitus Current Visit: Yes Status: Acute Assessment and Plan: Patient underwent surgical repair of right Charcot foot yesterday evening with Dr. Ku. Charcot patient was related to rejection of hardware with exterior fixation placement. Per podiatry, patient will be on 2 g Ancef daily 2 weeks, which will continue at [facility] after discharge. Dressing will need to be changed twice weekly after discharge. Follow-up appointment with Dr. Barahona will be set up for one week following discharge. Coumadin has been restarted. Pharmacology to dose. INR being monitored. (2) Abnormal EKG Current Visit: Yes Status: Acute Assessment and Plan: Patient had T-wave inversion on aVL which was new since 04/21/18. Also has had runs of NSVT on telemetry. Cardiology was consulted. Patient was cleared for surgery. Suspect secondary to JEAN. (3) Decreased hemoglobin Current Visit: Yes Status: Chronic Assessment and Plan: Hemoglobin today was still decreased but trended upward to 9.2 from 8.8 yesterday. We will continue to monitor by CBC. (4) Leukocytosis Current Visit: Yes Status: Acute Assessment and Plan: WBC today was elevated at 13.7. This is likely a reactive leukocytosis. Patient is afebrile and has normal heart rate. WBC over hospital stay has been 12.0 > 10.7 > 12.4 > 12.0 We will continue to monitor CBC. (5) Hyponatremia Current Visit: Yes Status: Acute Assessment and Plan: Sodium today was still low at 131. This has been downtrending over hospital stay, 135 > 135 > 133 > 131. We will continue to monitor with demi.arsen BMP. (6) Diabetes mellitus Current Visit: Yes Status: Chronic Assessment and Plan: Continue Accu-Cheks, SSI. (7) Sleep apnea Current Visit: Yes Status: Chronic Assessment and Plan: Continue CPAP. DVT Prophylaxis: SCD left leg. On home Coumadin. - Time Spent with Patient Total time spent is greater than 50% in coordination of care (as documented) at patient's floor/unit and/or counseling patient: Internal Medicine: Result - Labs CBC & Chem 7: 05/21/19 05:04 05/21/19 05:04 Labs: Short CBC 05/21/19 Range/Units 05:04 WBC 13.7 H (4.3-11.1) K/mcL Hgb 9.2 L (12.9-16.9) g/dL Hct 30.5 L (37.5-50.1) % Plt Count 473 H (140-400) K/mcL Neutrophils # 12.9 H (1.6-8.9) K/mcL BMP 05/21/19 05:04 Sodium 131 L Potassium 4.2 Chloride 100 Carbon Dioxide 25 BUN 18 Creatinine 0.89 Glucose 308 H Calcium 9.8 - ABG Interpretation ABG results: PT/INR, D-dimer PT 19.3 Seconds (9.4-12.1) H 05/20/19 04:00 - Impressions Impressions Fluoroscopy 05/20/19 22:20 IMPRESSION: Intra procedural images. See procedure note for further details. D/ / Misti Lomas Cha, MD / Misti Lomas Cha, MD Interpreting Provider: Misti Lomas Cha, MD <Evette Peck - Last Filed: 05/21/19 17:59> (3) Leukocytosis Qualifiers: Leukocytosis type: unspecified Qualified Code(s): D72.829 - Elevated white blood cell count, unspecified (6) Diabetes mellitus Qualifiers: Diabetes mellitus type: type 2 Qualified Code(s): E11.9 - Type 2 diabetes mellitus without complications (7) Sleep apnea Qualifiers: Sleep apnea type: unspecified type Qualified Code(s): G47.30 - Sleep apnea, unspecified <Jana Johnson L - Last Filed: 05/21/19 18:30> (4) Leukocytosis Qualifiers: Leukocytosis type: unspecified Qualified Code(s): D72.829 - Elevated white blood cell count, unspecified (6) Diabetes mellitus Qualifiers: Diabetes mellitus type: type 2 Qualified Code(s): E11.9 - Type 2 diabetes mellitus without complications (7) Sleep apnea Qualifiers: Sleep apnea type: unspecified type Qualified Code(s): G47.30 - Sleep apnea, unspecified
--- NOTE | 2019-05-21 11:52 | Podiatry Progress Note ---
Date of Encounter: 05/21/19 Time of Encounter: 10:00 - Assessment and Plan (1) Charcot foot due to diabetes mellitus Current Visit: Yes Status: Acute ASSESSMENT: POD #1 charcot revision related to rejection of hardware with ex fix placement, per lalo, 05/20/2019 PLAN: -Ex fix in place, DANNIELLE drain patent, milked at bedside, drainage is decreasing. - Patient denies any overnight complications. Denies any pain at this time - Hospitalist services deny any cardiac complications overnight - Ok to resume coumadin - Patient to have 2g ancef daily x2 weeks, to continue at ECF once discharged -Patient to discharge to [facility] - Dressing to ex fix will need changed twice weekly once discharged to facility, order listed below - Will need follow up appointment with in podiatry office 1 week following discharge- please call to make appointment prior to discharge - Hgb 9.2, please continue to monitor -WBC 13.3, likely reactive, continue to monitor -VS stable DRESSING:Orders provided for dressing changes. Left intact at this time. Cleanse sites with saline, apply triple antibiotic ointment to all sites, wrap insertion pins with xeroform, place drain sponges surrounding pin sites, secure with roll gauze/kerlix, secure with symone. Will place dressing change order Pre op xray There is redemonstration of hindfoot arthrodesis. When compared to the previous exam, there is increased distraction of the osteotomy fragments.. Several fractured screws are again noted, similar. There Is a screw identified along the lateral aspect of the ankle which may not be seated within a bone. Distal fibular resection again noted. Overlying soft tissue swelling is found. Subjective Interval history: POD #1 s/p charcot revision with application of ex fix device. Patient resting comfortably in bed. Dressing CDI. DANNIELLE drain noted and 5cc blood noted in bulb. Patient states that it was 1/2 full overnight and was emptied. patient denies pain. Patient denies any fevers, chills, n/v or fls. States he is still well blocked from surgery. Objective - Vital Signs Vital Signs: Vital Signs Temp Pulse Resp BP Pulse Ox 05/21/19 07:17 60 20 162/66 96 05/21/19 03:42 98.5 F 72 20 139/63 95 05/21/19 00:30 98.3 F 66 15 146/77 97 05/20/19 23:29 98 F 66 20 149/79 99 05/20/19 22:25 98.5 F 66 16 156/69 95 05/20/19 21:55 98.7 F 58 15 149/68 92 05/20/19 21:24 98 F 67 16 146/65 94 05/20/19 21:13 98.9 F 65 16 147/62 94 05/20/19 21:03 65 12 132/65 94 05/20/19 20:53 63 12 131/61 93 05/20/19 20:43 98.6 F 65 12 129/90 96 Intake and Output 05/20/19 05/21/19 05/21/19 23:59 07:59 15:59 Intake Total 400 / 640 240 / 640 Output Total 130 / 830 1360 / 1380 20 / 1380 Balance -130 / -830 -960 / -740 220 / -740 Intake: Oral 400 / 640 240 / 640 Output: Urine 0 / 700 1300 / 1300 Estimated Blood Loss 40 / 40 Wound Drainage 90 / 90 60 / 80 20 / 80 Right Foot 90 / 90 60 / 80 20 / 80 Other: Meal Breakfast Percent of Meal Consumed 100% Blood Glucose* 194 269 - Exam Exam: CONSTITUTIONAL: awake alert and oriented x3 VASCULAR: toes warm, cap refill <3 seconds, no calf pain with manual squeeze- dressing intact- unable to palpate for DP/PT NEUROLOGICAL: minimal sensation on normal basis- block remains intact SKIN: no assessment of skin or surgical line, ex fix dressing to remain intact at this time. - Lab Result Diagrams: 05/21/19 05:04 05/21/19 05:04 Labs: Abnormal lab results WBC 13.7 K/mcL (4.3-11.1) H 05/21/19 05:04 RBC 3.46 M/mcL (4.19-5.50) L 05/21/19 05:04 Hgb 9.2 g/dL (12.9-16.9) L 05/21/19 05:04 Hct 30.5 % (37.5-50.1) L 05/21/19 05:04 MCH 26.6 pg (28.0-33.3) L 05/21/19 05:04 MCHC 30.2 g/dL (31.6-35.5) L 05/21/19 05:04 RDW 16.8 % (11.5-14.5) H 05/21/19 05:04 Plt Count 473 K/mcL (140-400) H 05/21/19 05:04 MPV 9.0 fL (9.4-12.4) L 05/21/19 05:04 Neutrophils # 12.9 K/mcL (1.6-8.9) H 05/21/19 05:04 Lymphocytes # 0.5 K/mcL (0.6-4.6) L 05/21/19 05:04 PT 19.3 Seconds (9.4-12.1) H 05/20/19 04:00 APTT 50.4 Seconds (26.0-36.0) H 05/18/19 20:07 Sodium 131 mEq/L (136-145) L 05/21/19 05:04 Glucose 308 mg/dL (70-105) H 05/21/19 05:04 POC Glucose 269 mg/dL (70-99) H 05/21/19 07:58 Calcium 10.5 mg/dL (8.6-10.3) H 05/19/19 07:08 Total Bilirubin 0.2 mg/dL (0.3-1.0) L 05/18/19 20:07 AST 10 Units/L (13-39) L 05/18/19 20:07 Albumin 3.3 g/dL (3.5-5.7) L 05/18/19 20:07 Albumin/Globulin Ratio 0.9 (1.1-2.2) L 05/18/19 20:07 Crossmatch See Detail 05/19/19 11:25 Consult Discharge Plan - Plan Referrals: Ed Holley MD [Primary Care Provider] -
[2019-05-21] MEDS: *HR* OxyCODONE Immed Rel 5 MG TABLET PO PRN (17:43)
[2019-05-21] MEDS ORDERED: Warfarin perPT PO PRN (18:00)
[2019-05-21] MEDS ORDERED: *HR* Warfarin 7.5 MG TABLET PO ONE (18:00)
[2019-05-21] MEDS: Aspirin Enteric Coated 81 MG Tablet PO SCH (20:00)
[2019-05-22] MEDS: ceFAZolin 2,000 MG in 0.9 % Sodium Chloride 100 ML IVPB SCH ×3 (03:09→19:21)
[2019-05-22] MEDS: *HR* HYDROcodone/Acet 5/325 mg TABLET PO PRN ×2 (03:09→23:35)
[2019-05-22 07:19] LABS: Basophils % 0.2 %; Eosinophils # 0.1 K/mcL (0.0-0.6); Eosinophils % 0.8 %; Hematocrit 30.8 % (37.5-50.1); Hemoglobin 9.2 g/dL (12.9-16.9); Immature Granulocytes % 0.7 % (0-4); Lymphocytes # 2.1 K/mcL (0.6-4.6); Lymphocytes % 22.2 %; Mean Corpuscular HGB Conc 29.9 g/dL (31.6-35.5); Mean Corpuscular Hemoglobin 26.2 pg (28.0-33.3); Mean Corpuscular Volume 87.7 fL (83.0-100.0); Mean Platelet Volume 9.3 fL (9.4-12.4); Monocytes # 0.7 K/mcL (0.0-1.3); Monocytes % 6.9 %; Neutrophils # 6.7 K/mcL (1.6-8.9); Platelet Count 515 K/mcL (140-400); Red Blood Count 3.51 M/mcL (4.19-5.50); Red Cell Distribution Width 16.7 % (11.5-14.5); Segmented Neutrophils % 69.2 %; White Blood Count 9.6 K/mcL (4.3-11.1)
[2019-05-22 07:26] LABS: INR 1.3; Prothrombin Time 14.7 Seconds (9.4-12.1)
[2019-05-22 07:33] LABS: BUN/Creatinine Ratio 20 (6-26); Blood Urea Nitrogen 19 mg/dL (8-23); Calcium 10.2 mg/dL (8.6-10.3); Carbon Dioxide 29 mEq/L (23-29); Chloride 103 mEq/L (98-107); Glucose 207 mg/dL (70-105); Osmolality,Calculated 286 (280-300); Potassium 3.8 mEq/L (3.5-5.1); Sodium 134 mEq/L (136-145); eGFR For African Americans > 60 (> 60); eGFR For Non-African Americans > 60 (> 60)
--- NOTE | 2019-05-22 07:43 | Internal Med Progress Note ---
<Evette Peck - Last Filed: 05/22/19 14:18> Hospitalist Progress Note - Encounter Date of Encounter: 05/22/19 - Exam Vitals: Temp Pulse Resp BP Pulse Ox 97.8 F 74 16 134/81 98 05/22/19 09:50 05/22/19 09:50 05/22/19 09:50 05/22/19 09:50 05/22/19 09:50 - Assessment and Plan (1) Charcot foot due to diabetes mellitus Current Visit: Yes Status: Acute (2) Abnormal EKG Current Visit: Yes Status: Acute (3) Leukocytosis Current Visit: Yes Status: Acute (4) Hyponatremia Current Visit: Yes Status: Acute (5) Decreased hemoglobin Current Visit: Yes Status: Chronic (6) Diabetes mellitus Current Visit: Yes Status: Chronic (7) Sleep apnea Current Visit: Yes Status: Chronic - Time Spent with Patient Total time spent is greater than 50% in coordination of care (as documented) at patient's floor/unit and/or counseling patient: Internal Medicine: Result - Labs CBC & Chem 7: 05/22/19 06:31 05/22/19 06:31 Labs: Short CBC 05/22/19 Range/Units 06:31 WBC 9.6 (4.3-11.1) K/mcL Hgb 9.2 L (12.9-16.9) g/dL Hct 30.8 L (37.5-50.1) % Plt Count 515 H (140-400) K/mcL Neutrophils # 6.7 (1.6-8.9) K/mcL BMP 05/22/19 06:31 Sodium 134 L Potassium 3.8 Chloride 103 Carbon Dioxide 29 BUN 19 Creatinine 0.96 Glucose 207 H Calcium 10.2 - ABG Interpretation ABG results: PT/INR, D-dimer PT 14.7 Seconds (9.4-12.1) H 05/22/19 06:31 Consult Discharge Plan - Plan Referrals: Ed Holley MD [Primary Care Provider] - - Attending Attestation I examined this patient and my medical decision-making was reviewed with the Resident Physician Dr Talbert. I agree with the documented findings, disposition and treatment plan as described except to the extent set forth below. Mr Barth is being observed for Charcot foot requiring surgical intervention awake, no pain, feeling well, + flatus, no bm yet, urinating without difficulty. awaiting placement gen- alert, awake,appears stated age cv- reg rate and rhythm, normal s1,s2 lungs- ctabl,norm resp effort on room air msk- right foot with external fixator and drain neuro- AAOx3 Charcot Foot requiring surgical intervention- post op care as per podiatry, given his complications in past requires 2w ancef, will dispo to rehab Afib hx on AC, NSR- resumed warfarin per pharm, no bridging due to bleeding risk, monitor inr Chronic anemia on AC, possibly related, at baseline- will monitor DM- bringing in home non form meds for improved glc control, SSI further dx and plan as noted by resident <Fabian Talbert - Last Filed: 05/22/19 20:13> Hospitalist Progress Note - Encounter Date of Encounter: 05/22/19 Time of Encounter: 09:16 - Subjective Interval History: Patient was seen and examined at bedside. Only complaint today is that he has not had a bowel movement yet. We will add senna plus to his regimen. External fixator is visible on his right foot, and drain is in place. Dressing appears intact. We are awaiting placement. - Exam Vitals: Temp Pulse Resp BP Pulse Ox 98 F 68 18 139/76 99 05/22/19 06:34 05/22/19 06:34 05/22/19 06:34 05/22/19 06:34 05/22/19 06:34 Exam: General: Conversant, no acute distress Head: atraumatic, normocephalic Eye: PERRL, EOMI Neck: Supple, trachea midline; No lymphadenopathy Respiratory: CTAB. No accessory muscle use, wheezes, rales, or rhonchi Cardiovascular: RRR, +S1, +S2; no murmurs, rubs, gallops Abdomen: Soft, nontender Extremities: External fixator present on right foot; drain in place; dressing appears intact Neurological: No focal deficits Psychiatric: Normal affect, normal mood Skin: Dry, intact - Assessment and Plan (1) Charcot ankle Current Visit: No Status: Acute Assessment and Plan: - Patient is status post surgical repair of right Charcot foot - Podiatry is following - Per the recommendations of podiatry, patient is to be on 2 g of Ancef daily for 2 weeks - He will follow-up with podiatry in the outpatient setting after discharge - We are awaiting placement to ECF (2) Chronic anemia Current Visit: Yes Status: Acute (3) Diabetes Current Visit: No Status: Chronic Assessment and Plan: Continue Accu-Cheks, SSI (4) Sleep apnea Current Visit: No Status: Chronic Assessment and Plan: - Continue CPAP - Time Spent with Patient Total time spent is greater than 50% in coordination of care (as documented) at patient's floor/unit and/or counseling patient: Internal Medicine: Result - Labs CBC & Chem 7: 05/22/19 06:31 05/22/19 06:31 Labs: Short CBC 05/22/19 Range/Units 06:31 WBC 9.6 (4.3-11.1) K/mcL Hgb 9.2 L (12.9-16.9) g/dL Hct 30.8 L (37.5-50.1) % Plt Count 515 H (140-400) K/mcL Neutrophils # 6.7 (1.6-8.9) K/mcL BMP 05/22/19 06:31 Sodium 134 L Potassium 3.8 Chloride 103 Carbon Dioxide 29 BUN 19 Creatinine 0.96 Glucose 207 H Calcium 10.2 - ABG Interpretation ABG results: PT/INR, D-dimer PT 14.7 Seconds (9.4-12.1) H 05/22/19 06:31 - VTE Documentation of Mechanical Device: Intermittent pneumatic compression device <Evette Peck - Last Filed: 05/22/19 14:18> (3) Leukocytosis Qualifiers: Leukocytosis type: unspecified Qualified Code(s): D72.829 - Elevated white blood cell count, unspecified (6) Diabetes mellitus Qualifiers: Diabetes mellitus type: type 2 Qualified Code(s): E11.9 - Type 2 diabetes mellitus without complications (7) Sleep apnea Qualifiers: Sleep apnea type: unspecified type Qualified Code(s): G47.30 - Sleep apnea, u nspecified <Fabian Talbert - Last Filed: 05/22/19 20:13> (1) Charcot ankle Qualifiers: Laterality: right Qualified Code(s): M14.671 - Charcot's joint, right ankle and foot (3) Diabetes Qualifiers: Diabetes mellitus type: type 2 Diabetes mellitus exterminator insulin use: without exterminator use Diabetes mellitus complication status: with neurologic complications Diabetes mellitus complication detail: with unspecified neuropa thy Qualified Code(s): E11.40 - Type 2 diabetes mellitus with diabetic karen ropathy, unspecified (4) Sleep apnea Qualifiers: Sleep apnea type: unspecified type Qualified Code(s): G47.30 - Sleep apnea, unspecified
[2019-05-22] MEDS: Insulin LISPRO 300 UNITS/3 ML VIAL SQ SCH ×3 (08:24→18:02)
[2019-05-22] MEDS: Ascorbic Acid 500 MG TABLET PO SCH (08:25)
[2019-05-22] MEDS: Furosemide 40 MG TABLET PO SCH (08:25)
[2019-05-22] MEDS: FARXIGA 5MG PO SCH (08:25)
[2019-05-22] MEDS: Cholecalciferol (D-3) 1,000 UNIT (25MCG) TABLET PO SCH (08:25)
[2019-05-22] MEDS: Fenofibrate 54 MG TABLET PO SCH (08:25)
[2019-05-22] MEDS: *HR* OxyCODONE Immed Rel 5 MG TABLET PO PRN ×2 (08:39→19:29)
--- NOTE | 2019-05-22 10:08 | Podiatry Progress Note ---
Date of Encounter: 05/22/19 Time of Encounter: 09:00 - Assessment and Plan (1) Charcot ankle Current Visit: No Status: Chronic discussed surgical procedure and course of recovery with patient. discussed it is imperative that he remain non-wb otherwise his surgery will fail and he will likely lose his leg as it will probably not be salvagable. continue a nticoagulation. plan to d/c to snf. Qualifiers: Laterality: right Qualified Code(s): M14.671 - Charcot's joint, right ankle and foot Subjective Interval history: patient OOB in chair. says he feels pretty good. denies f/c/n/v/sob/cp/calf pain. says he does have some pain. says he is staying off his right leg. Objective - Vital Signs Vital Signs: Vital Signs Temp Pulse Resp BP Pulse Ox 05/22/19 06:34 98 F 68 18 139/76 99 05/22/19 04:20 98.4 F 63 20 147/72 99 05/21/19 22:30 97.8 F 62 20 166/73 100 05/21/19 18:21 97.6 F 65 20 143/76 99 05/21/19 17:19 98.3 F 60 18 136/60 97 05/21/19 12:00 98.5 F 60 18 148/61 98 Intake and Output 05/21/19 05/22/19 05/22/19 23:59 07:59 15:59 Intake Total 730 / 1930 1100 / 1340 240 / 1340 Output Total 1870 / 4170 940 / 940 Balance -1140 / -2240 160 / 400 240 / 400 Intake: IV Fluids 100 / 300 100 / 100 Ancef 2,000 MG In 0.9 % Sodium 100 / 300 100 / 100 Chloride 100 ML @ 200 mls/hr IVPB Q8H [facility] Rx#:[id number] Oral 630 / 1630 1000 / 1240 240 / 1240 Output: Urine 400 / 1700 900 / 900 Catheter 1400 / 2300 Wound Drainage 70 / 170 40 / 40 Right Foot 70 / 170 40 / 40 Other: Meal Breakfast Breakfast Percent of Meal Consumed 95% 100% Blood Glucose* 187 220 - Exam Exam: well developed obese male in no acute distress no pistoning of external fixator. bandage intact with no strike through. no calf pain with squeeze. drain intact approximately 15cc of bloody drainage. - Lab Result Diagrams: 05/22/19 06:31 05/22/19 06:31 Labs: Abnormal lab results WBC 13.7 K/mcL (4.3-11.1) H 05/21/19 05:04 RBC 3.51 M/mcL (4.19-5.50) L 05/22/19 06:31 Hgb 9.2 g/dL (12.9-16.9) L 05/22/19 06:31 Hct 30.8 % (37.5-50.1) L 05/22/19 06:31 MCH 26.2 pg (28.0-33.3) L 05/22/19 06:31 MCHC 29.9 g/dL (31.6-35.5) L 05/22/19 06:31 RDW 16.7 % (11.5-14.5) H 05/22/19 06:31 Plt Count 515 K/mcL (140-400) H 05/22/19 06:31 MPV 9.3 fL (9.4-12.4) L 05/22/19 06:31 Neutrophils # 12.9 K/mcL (1.6-8.9) H 05/21/19 05:04 Lymphocytes # 0.5 K/mcL (0.6-4.6) L 05/21/19 05:04 PT 14.7 Seconds (9.4-12.1) H 05/22/19 06:31 APTT 50.4 Seconds (26.0-36.0) H 05/18/19 20:07 Sodium 134 mEq/L (136-145) L 05/22/19 06:31 Glucose 207 mg/dL (70-105) H 05/22/19 06:31 POC Glucose 187 mg/dL (70-99) H 05/21/19 20:15 Calcium 10.5 mg/dL (8.6-10.3) H 05/19/19 07:08 Total Bilirubin 0.2 mg/dL (0.3-1.0) L 05/18/19 20:07 AST 10 Units/L (13-39) L 05/18/19 20:07 Albumin 3.3 g/dL (3.5-5.7) L 05/18/19 20:07 Albumin/Globulin Ratio 0.9 (1.1-2.2) L 05/18/19 20:07 Crossmatch See Detail 05/19/19 11:25 - VTE Documentation of Mechanical Device: Intermittent pneumatic compression device Consult Discharge Plan - Plan Referrals: Ed Holley MD [Primary Care Provider] -
[2019-05-22] MEDS ORDERED: *HR* Warfarin 7.5 MG TABLET PO ONE (18:00)
[2019-05-22] MEDS: Aspirin Enteric Coated 81 MG Tablet PO SCH (19:21)
[2019-05-23] MEDS: ceFAZolin 2,000 MG in 0.9 % Sodium Chloride 100 ML IVPB SCH ×3 (03:51→19:17)
--- NOTE | 2019-05-23 08:15 | Internal Med Progress Note ---
<Evette Peck - Last Filed: 05/23/19 12:21> Hospitalist Progress Note - Encounter Date of Encounter: 05/23/19 - Exam Vitals: Temp Pulse Resp BP Pulse Ox 97.4 F L 65 18 132/72 96 05/23/19 11:32 05/23/19 11:32 05/23/19 11:32 05/23/19 11:32 05/23/19 11:32 - Assessment and Plan (1) Charcot foot due to diabetes mellitus Current Visit: Yes Status: Acute (2) Abnormal EKG Current Visit: Yes Status: Acute (3) Leukocytosis Current Visit: Yes Status: Acute (4) Hyponatremia Current Visit: Yes Status: Acute (5) Decreased hemoglobin Current Visit: Yes Status: Chronic (6) Diabetes mellitus Current Visit: Yes Status: Chronic (7) Sleep apnea Current Visit: Yes Status: Chronic - Time Spent with Patient Total time spent is greater than 50% in coordination of care (as documented) at patient's floor/unit and/or counseling patient: Internal Medicine: Result - Labs CBC & Chem 7: 05/23/19 10:05 05/23/19 10:05 Labs: Short CBC 05/23/19 Range/Units 10:05 WBC 7.5 (4.3-11.1) K/mcL Hgb 9.3 L (12.9-16.9) g/dL Hct 31.2 L (37.5-50.1) % Plt Count 538 H (140-400) K/mcL Neutrophils # 5.4 (1.6-8.9) K/mcL BMP 05/23/19 10:05 Sodium 136 Potassium 3.9 Chloride 101 Carbon Dioxide 27 BUN 19 Creatinine 1.01 Glucose 303 H Calcium 10.1 - ABG Interpretation ABG results: PT/INR, D-dimer PT 14.6 Seconds (9.4-12.1) H 05/23/19 10:05 Consult Discharge Plan - Plan Referrals: Ed Holley MD [Primary Care Provider] - - Attending Attestation I examined this patient and my medical decision-making was reviewed with the Resident Physician Dr Talbert. I agree with the documented findings, disposition and treatment plan as described except to the extent set forth below. Mr Barth is being observed for Charcot foot requiring surgical intervention awake, no pain,+ flatus, no bm and requesting laxative, no abd pain, n/v gen- alert, awake,appears stated age cv- reg rate and rhythm, normal s1,s2 lungs- ctabl msk- right foot with external fixator neuro- AAOx3 Charcot Foot requiring surgical intervention- post op care as per podiatry, given his complications in past requires 2w ancef, will dispo to rehab Afib hx on AC, NSR / subtherapeutic inr- resumed warfarin per pharm, no bridging due to bleeding risk Chronic anemia on AC, possibly related, at baseline- will monitor DM- bringing in home non form meds for improved glc control, SSI constipation- colace + senna further dx and plan as noted by resident awaiting snf dispo <Fabian Talbert - Last Filed: 05/23/19 15:28> Hospitalist Progress Note - Encounter Date of Encounter: 05/23/19 Time of Encounter: 10:03 - Subjective Interval History: Patient was seen and examined at bedside. Continues to complain of con stipation. Colace and senna plus ordered. External fixator is visible on his right foot, and drain is in place. Dressing appears intact. We are awaiting placement to ECF. - Exam Vitals: Temp Pulse Resp BP Pulse Ox 98.2 F 64 18 137/86 99 05/23/19 06:28 10 06:28 10 06:28 05/23/19 06:28 05/23/19 06:28 Exam: General: Conversant, no acute distress Head: atraumatic, normocephalic Eye: PERRL, EOMI Neck: Supple, trachea midline; No lymphadenopathy Respiratory: CTAB. No accessory muscle use, wheezes, rales, or rhonchi Cardiovascular: RRR, +S1, +S2; no murmurs, rubs, gallops Abdomen: Soft, nontender Extremities: External fixator present on right foot; drain in place; dressing appears intact Neurological: No focal deficits Psychiatric: Normal affect, normal mood Skin: Dry, intact - Assessment and Plan (1) Charcot ankle Current Visit: No Status: Acute Assessment and Plan: - Patient is status post surgical repair of right Charcot foot - Podiatry is following - Per the recommendations of podiatry, patient is to be on 2 g of Ancef daily for 2 weeks - He will follow-up with podiatry in the outpatient setting after discharge - We are awaiting placement to ECF (2) Chronic anemia Current Visit: Yes Status: Acute Assessment and Plan: - Chronic; no overt signs of bleeding - Hemoglobin currently at baseline (3) Diabetes Current Visit: No Status: Chronic Assessment and Plan: - Continue Accu-Cheks, SSI (4) Sleep apnea Current Visit: No Status: Chronic Assessment and Plan: - Continue CPAP (5) Constipation Current Visit: Yes Status: Acute Assessment and Plan: - Colace and senna plus (6) Afib Current Visit: No Status: Chronic Assessment and Plan: - Continue home Coumadin; dosing per pharmacy (7) DVT prophylaxis Current Visit: No Status: Acute Assessment and Plan: - Continue home Coumadin - Time Spent with Patient Total time spent is greater than 50% in coordination of care (as documented) at patient's floor/unit and/or counseling patient: Internal Medicine: Result - Labs CBC & Chem 7: 05/23/19 10:05 05/23/19 10:05 - ABG Interpretation ABG results: PT/INR, D-dimer PT 14.7 Seconds (9.4-12.1) H 05/22/19 06:31 - VTE Documentation of Mechanical Device: Intermittent pneumatic compression device __ <Evette Peck - Last Filed: 05/23/19 12:21> (3) Leukocytosis Qualifiers: Leukocytosis type: unspecified Qualified Code(s): D72.829 - Elevated white blood cell count, unspecified (6) Diabetes mellitus Qualifiers: Diabetes mellitus type: type 2 Qualified Code(s): E11.9 - Type 2 diabetes mellitus without complications (7) Sleep apnea Qualifiers: Sleep apnea type: unspecified type Qualified Code(s): G47.30 - Sleep apnea, unspecified <Fabian Talbert - Last Filed: 05/23/19 15:28> (1) Charcot ankle Qualifiers: Laterality: right Qualified Code(s): M14.671 - Charcot's joint, right ankle and foot (3) Diabetes Qualifiers: Diabetes mellitus type: type 2 Diabetes mellitus custodial insulin use: without custodial use Diabetes mellitus complication status: with neurologic complications Diabetes mellitus complication detail: with unspecified neuropathy Qualified Code(s): E11.40 - Type 2 diabetes mellitus with diabetic neuropathy, unspecified (4) Sleep apnea Qualifiers: Sleep apnea type: unspecified type Qualified Code(s): G47.30 - Sleep apnea, unspecified (6) Afib Qualifiers: Atrial fibrillation type: chronic
[2019-05-23] MEDS: Insulin LISPRO 300 UNITS/3 ML VIAL SQ SCH ×3 (08:53→17:40)
[2019-05-23] MEDS: Cholecalciferol (D-3) 1,000 UNIT (25MCG) TABLET PO SCH (08:55)
[2019-05-23] MEDS: Fenofibrate 54 MG TABLET PO SCH (08:55)
[2019-05-23] MEDS: Ascorbic Acid 500 MG TABLET PO SCH (08:55)
[2019-05-23] MEDS: Furosemide 40 MG TABLET PO SCH (08:55)
[2019-05-23 10:43] LABS: Basophils # 0.1 K/mcL (0.0-0.2); Basophils % 0.7 %; Eosinophils # 0.1 K/mcL (0.0-0.6); Eosinophils % 1.9 %; Hematocrit 31.2 % (37.5-50.1); Hemoglobin 9.3 g/dL (12.9-16.9); Immature Granulocytes % 1.1 % (0-4); Lymphocytes # 1.4 K/mcL (0.6-4.6); Lymphocytes % 18.6 %; Mean Corpuscular HGB Conc 29.8 g/dL (31.6-35.5); Mean Corpuscular Hemoglobin 26.3 pg (28.0-33.3); Mean Corpuscular Volume 88.4 fL (83.0-100.0); Mean Platelet Volume 9.4 fL (9.4-12.4); Monocytes # 0.5 K/mcL (0.0-1.3); Monocytes % 6.6 %; Neutrophils # 5.4 K/mcL (1.6-8.9); Platelet Count 538 K/mcL (140-400); Red Blood Count 3.53 M/mcL (4.19-5.50); Red Cell Distribution Width 17.1 % (11.5-14.5); Segmented Neutrophils % 71.1 %; White Blood Count 7.5 K/mcL (4.3-11.1)
[2019-05-23 10:52] LABS: INR 1.3; Prothrombin Time 14.6 Seconds (9.4-12.1)
[2019-05-23 11:04] LABS: BUN/Creatinine Ratio 19 (6-26); Blood Urea Nitrogen 19 mg/dL (8-23); Calcium 10.1 mg/dL (8.6-10.3); Carbon Dioxide 27 mEq/L (23-29); Chloride 101 mEq/L (98-107); Glucose 303 mg/dL (70-105); Osmolality,Calculated 296 (280-300); Potassium 3.9 mEq/L (3.5-5.1); Sodium 136 mEq/L (136-145); eGFR For African Americans > 60 (> 60); eGFR For Non-African Americans > 60 (> 60)
[2019-05-23] MEDS: FARXIGA 5MG PO SCH (11:42)
[2019-05-23] MEDS: *HR* HYDROcodone/Acet 5/325 mg TABLET PO PRN ×2 (11:42→19:19)
[2019-05-23] MEDS ORDERED: *HR* Warfarin 7.5 MG TABLET PO ONE (18:00)
[2019-05-23] MEDS ORDERED: *HR* Warfarin 1 MG TABLET PO ONE (18:00)
[2019-05-23] MEDS: Aspirin Enteric Coated 81 MG Tablet PO SCH (19:17)
[2019-05-24] MEDS: ceFAZolin 2,000 MG in 0.9 % Sodium Chloride 100 ML IVPB SCH ×3 (03:14→20:55)
[2019-05-24 04:47] LABS: Basophils # 0.1 K/mcL (0.0-0.2); Basophils % 0.5 %; Eosinophils # 0.2 K/mcL (0.0-0.6); Eosinophils % 2.1 %; Hematocrit 29.9 % (37.5-50.1); Immature Granulocytes % 1.6 % (0-4); Lymphocytes # 2.2 K/mcL (0.6-4.6); Lymphocytes % 23.5 %; Mean Corpuscular HGB Conc 30.1 g/dL (31.6-35.5); Mean Corpuscular Hemoglobin 26.2 pg (28.0-33.3); Mean Corpuscular Volume 86.9 fL (83.0-100.0); Mean Platelet Volume 9.2 fL (9.4-12.4); Monocytes # 0.6 K/mcL (0.0-1.3); Nucleated Red Blood Cells 0.3 /100 WBC (0); Platelet Count 506 K/mcL (140-400); Red Blood Count 3.44 M/mcL (4.19-5.50); Red Cell Distribution Width 17.2 % (11.5-14.5); Segmented Neutrophils % 65.3 %; White Blood Count 9.1 K/mcL (4.3-11.1)
[2019-05-24 05:04] LABS: INR 1.3; Prothrombin Time 15.2 Seconds (9.4-12.1)
[2019-05-24 05:08] LABS: BUN/Creatinine Ratio 19 (6-26); Blood Urea Nitrogen 17 mg/dL (8-23); Calcium 9.9 mg/dL (8.6-10.3); Carbon Dioxide 25 mEq/L (23-29); Chloride 102 mEq/L (98-107); Glucose 186 mg/dL (70-105); Osmolality,Calculated 288 (280-300); Potassium 3.8 mEq/L (3.5-5.1); Sodium 136 mEq/L (136-145); eGFR For African Americans > 60 (> 60); eGFR For Non-African Americans > 60 (> 60)
[2019-05-24] MEDS: Insulin LISPRO 300 UNITS/3 ML VIAL SQ SCH ×3 (07:58→17:49)
[2019-05-24] MEDS: Furosemide 40 MG TABLET PO SCH (08:00)
[2019-05-24] MEDS: Ascorbic Acid 500 MG TABLET PO SCH (08:00)
[2019-05-24] MEDS: Fenofibrate 54 MG TABLET PO SCH (08:00)
[2019-05-24] MEDS: Cholecalciferol (D-3) 1,000 UNIT (25MCG) TABLET PO SCH (08:00)
--- NOTE | 2019-05-24 09:16 | Internal Med Progress Note ---
<Evette Peck - Last Filed: 05/24/19 15:36> Hospitalist Progress Note - Encounter Date of Encounter: 05/24/19 - Exam Vitals: Temp Pulse Resp BP Pulse Ox 98.0 F 63 20 145/67 95 05/24/19 15:20 05/24/19 15:20 05/24/19 15:20 05/24/19 15:20 05/24/19 15:20 - Assessment and Plan (1) Charcot foot due to diabetes mellitus Current Visit: Yes Status: Acute (2) Abnormal EKG Current Visit: Yes Status: Acute (3) Leukocytosis Current Visit: Yes Status: Acute (4) Hyponatremia Current Visit: Yes Status: Acute (5) Decreased hemoglobin Current Visit: Yes Status: Chronic (6) Diabetes mellitus Current Visit: Yes Status: Chronic (7) Sleep apnea Current Visit: Yes Status: Chronic - Time Spent with Patient Total time spent is greater than 50% in coordination of care (as documented) at patient's floor/unit and/or counseling patient: Internal Medicine: Result - Labs CBC & Chem 7: 05/24/19 04:15 05/24/19 04:15 Labs: Short CBC 05/24/19 Range/Units 04:15 WBC 9.1 (4.3-11.1) K/mcL Hgb 9.0 L (12.9-16.9) g/dL Hct 29.9 L (37.5-50.1) % Plt Count 506 H (140-400) K/mcL Neutrophils # 6.0 (1.6-8.9) K/mcL BMP 05/24/19 04:15 Sodium 136 Potassium 3.8 Chloride 102 Carbon Dioxide 25 BUN 17 Creatinine 0.89 Glucose 186 H Calcium 9.9 - ABG Interpretation ABG results: PT/INR, D-dimer PT 15.2 Seconds (9.4-12.1) H 05/24/19 04:15 Consult Discharge Plan - Plan Additional Instructions: Dressing orders: Cleanse sites with saline, apply triple antibiotic ointment to all sites, wrap insertion pins with xeroform, place drain sponges surrounding pin sites, secure with roll gauze/kerlix, secure with symone. Next dressing change 05/26/19 Will need 2 weeks IV ancef total, continue at [facility] Follow up with Dr Barahona. Coumadin held for surgery. Requires INR check 2 days from DC and dose adjustment as needed Referrals: Ed Holley MD [Primary Care Provider] - Daniel Barahona DPM [Partnered Physician] - (requires wound care follow up post op as per Podiatry ) Prescriptions: ceFAZolin [Ancef] 2,000 mg IVPB Q8HR #31 vial Prescription Printed - Attending Attestation I examined this patient and my medical decision-making was reviewed with the Resident Physician Dr Johnson. I agree with the documented findings, disposition and treatment plan as described except to the extent set forth below. Mr Barth is being observed for Charcot foot requiring surgical intervention awake, no pain,+ flatus,still no bm, but no abd pain, no fevers gen- alert, awake,appears stated age cv- reg rate and rhythm, normal s1,s2 lungs- ctabl, norm resp effort neuro- AAOx3 Charcot Foot requiring surgical intervention- post op care as per podiatry, given his complications in past requires 2w ancef, awaiting snf placement Afib hx on AC, NSR / subtherapeutic inr- warfarin per pharm, no bridging due to bleeding risk, inr check will be required 2 days post dc Chronic anemia on AC, possibly related, at baseline DM- bringing in home non form meds for improved glc control, SSI, may resume home regimen on dc constipation- colace + senna further dx and plan as noted by resident awaiting snf placement, ancef rx already with sw to send to snf <Jana Johnson L - Last Filed: 05/24/19 18:15> Hospitalist Progress Note - Encounter Date of Encounter: 05/24/19 Time of Encounter: 10:20 - Subjective Interval History: Jason Malagon is a 63-year-old male with past medical history of hypertension, A. fib, sick sinus with pacer, DVT, COPD, DM, GERD, JEAN who presented to the hospital on 05/19 for surgery to repair Charcot foot on the right. Due to KG which showed T-wave inversion in aVL and overnight NSVT on telemetry, cardiology was consulted and gave clearance for surgery. Patient underwent surgery with Dr. Barahona on 05/20 and tolerated surgery well. Prior to surgery hemoglobin was low at 8.7 and patient received 1 unit of packed red blood cells. Patient is currently on cefazolin for 2 weeks. Patient reports feeling well today and was sitting up in a chair with right foot propped up on pillows. He reported sleeping well. We are currently awaiting placement to ECF. - Exam Vitals: Temp Pulse Resp BP Pulse Ox 98.2 F 62 20 130/72 100 05/24/19 06:36 05/24/19 06:36 05/24/19 06:36 05/24/19 06:36 05/24/19 06:36 Exam: GENERAL: Conversant, in no acute distress. EYES: Anicteric, clear sclerae. Pupils equal and reactive to light bilaterally. HENT: Atraumatic, normocephalic. Moist mucosa. NECK: Supple. Normal carotid pulses. CV: Regular rate and rhythm. Normal S1 and S2. No murmurs, clicks, or gallops. RESPIRATORY: Clear to auscultation bilaterally. No wheezes, rhonchi, or rales. ABDOMEN: Soft, nontender, nondistended. Normal bowel sounds. NEUROLOGICAL: No focal deficits noted. SKIN: Warm, dry. No rashes or lesions. EXTREMITIES: Peripheral pulses 2/4 bilaterally. Capillary refill <2 sec. No edema or cyanosis noted. Right foot has surgical dressings and external fixation. Dressings are clean, dry, intact. - Assessment and Plan (1) Charcot foot due to diabetes mellitus Current Visit: Yes Status: Acute Assessment and Plan: Patient is postop day 4 of surgical repair of right Charcot foot Podiatry continues to follow. Per podiatry, patient should continue to be on 2 g of Ancef daily for total of 2 weeks. Patient will continue to follow up with podiatry in outpatient setting after discharge. Next dressing change should be on . Wound care orders have been placed. We are awaiting placement to ECF, likely signature. (2) Decreased hemoglobin Current Visit: Yes Status: Chronic Assessment and Plan: Anemia seems to be chronic. No obvious bleeding site is present. Hemoglobin today is 9.0, which is consistent with baseline. (3) Leukocytosis Current Visit: Yes Status: Acute Assessment and Plan: WBCs today were normal at 9.1. Leukocytosis appears to have resolved. Possibly, this was reactive from Charcot foot (4) Hyponatremia Current Visit: Yes Status: Acute Assessment and Plan: Sodium today was normal at 136. Hyponatremia appears to have resolved. (5) Diabetes mellitus Current Visit: Yes Status: Chronic Assessment and Plan: Continue Accu-Cheks and SSI. (6) Sleep apnea Current Visit: Yes Status: Chronic Assessment and Plan: Continue CPAP (7) Constipation Current Visit: Yes Status: Acute Assessment and Plan: Continue Colace and senna plus (8) Afib Current Visit: No Status: Chronic Assessment and Plan: Continue home Coumadin. Pharmacy to dose. DVT Prophylaxis: Continue home Coumadin. - Time Spent with Patient Total time spent is greater than 50% in coordination of care (as documented) at patient's floor/unit and/or counseling patient: Internal Medicine: Result - Labs CBC & Chem 7: 05/24/19 04:15 05/24/19 04:15 Labs: Short CBC 05/23/19 05/24/19 Range/Units 10:05 04:15 WBC 7.5 9.1 (4.3-11.1) K/mcL Hgb 9.3 L 9.0 L (12.9-16.9) g/dL Hct 31.2 L 29.9 L (37.5-50.1) % Plt Count 538 H 506 H (140-400) K/mcL Neutrophils # 5.4 6.0 (1.6-8.9) K/mcL BMP 05/23/19 05/24/19 10:05 04:15 Sodium 136 136 Potassium 3.9 3.8 Chloride 101 102 Carbon Dioxide 27 25 BUN 19 17 Creatinine 1.01 0.89 Glucose 303 H 186 H Calcium 10.1 9.9 - ABG Interpretation ABG results: PT/INR, D-dimer PT 15.2 Seconds (9.4-12.1) H 05/24/19 04:15 - VTE Documentation of Mechanical Device: Intermittent pneumatic compression device <Evette Peck - Last Filed: 05/24/19 15:36> (3) Leukocytosis Qualifiers: Leukocytosis type: unspecified Qualified Code(s): D72.829 - Elevated white blood cell count, unspecified (6) Diabetes mellitus Qualifiers: Diabetes mellitus type: type 2 Qualified Code(s): E11.9 - Type 2 diabetes mellitus without complications (7) Sleep apnea Qualifiers: Sleep apnea type: unspecified type Qualified Code(s): G47.30 - Sleep apnea, u nspecified <Jana Johnson L - Last Filed: 05/24/19 18:15> (3) Leukocytosis Qualifiers: Leukocytosis type: unspecified Qualified Code(s): D72.829 - Elevated white blood cell count, unspecified (5) Diabetes mellitus Qualifiers: Diabetes mellitus type: type 2 Qualified Code(s): E11.9 - Type 2 diabetes mellitus without complications (6) Sleep apnea Qualifiers: Sleep apnea type: unspecified type Qualified Code(s): G47.30 - Sleep apnea, unspecified (8) Afib Qualifiers: Atrial fibrillation type: chronic
--- NOTE | 2019-05-24 10:59 | Podiatry Progress Note ---
Date of Encounter: 05/24/19 Time of Encounter: 10:56 - Assessment and Plan (1) Charcot foot due to diabetes mellitus Current Visit: Yes Status: Acute Assessment: S/P Revision of right ankle arthodesis and application of multiplane external fixator on 05/20/[address] Barahona Ex-fix in place to right lower extremity No strike through noted CFT <3 seconds Pins in tact Drain in place, draining serosanguinous drainage WBC 9.1, afebrile HGB 9.0, primary managing Plan: Awaiting placement to ECF Management of hemoglobin per primary team Will need 2 weeks IV ancef, continue at ECF If patient here on will change dressing, if not ECF to change dressing Wound care orders placed Follow up in wound care with Dr. Barahona, please make appointment prior to d/c Dressing orders: Cleanse sites with saline, apply triple antibiotic ointment to all sites, wrap insertion pins with xeroform, place drain sponges surrounding pin sites, secure with roll gauze/kerlix, secure with symone. Objective - Vital Signs Vital Signs: Vital Signs Temp Pulse Resp BP Pulse Ox 05/24/19 06:36 98.2 F 62 20 130/72 100 05/24/19 04:22 98.5 F 79 20 132/67 96 05/23/19 23:17 98.6 F 63 17 151/70 93 05/23/19 19:38 99.1 F 60 18 129/63 96 05/23/19 14:08 97.7 F 68 16 131/68 96 05/23/19 11:32 97.4 F L 65 18 132/72 96 Intake and Output 05/23/19 05/24/19 05/24/19 23:59 07:59 15:59 Intake Total 630 / 2375 500 / 740 240 / 740 Output Total 640 / 1465 1220 / 1220 Balance - -720 / -480 240 / -480 Intake: IV Fluids 100 / 300 100 / 100 Ancef 2,000 MG In 0.9 % Sodium 100 / 300 100 / 100 Chloride 100 ML @ 200 mls/hr IVPB Q8H [facility] Rx#:[id number] Oral 530 / 2075 400 / 640 240 / 640 Output: Urine 600 / 1375 1200 / 1200 Wound Drainage 40 / 90 20 / 20 Right Foot Other: Meal Breakfast Percent of Meal Consumed 100% Blood Glucose* 182 196 - Exam Exam: Constitiutional: Alert and oriented x 3. Well nourished. No acute distress noted Vascular: CFT <3 sec to all digits, warm above and below dressing, no calf pain with squeeze RLE Neurologic: Absent sensation to touch RLE Dermatologic: Ex-fix in place, dressing in place, pins in place, no strike through noted, no erythema noted above or below dressing RLE Musculoskeletal: 3/5 muscle strength and normal tone RLE - Lab Result Diagrams: 05/24/19 04:15 05/24/19 04:15 Labs: Abnormal lab results WBC 13.7 K/mcL (4.3-11.1) H 05/21/19 05:04 RBC 3.44 M/mcL (4.19-5.50) L 05/24/19 04:15 Hgb 9.0 g/dL (12.9-16.9) L 05/24/19 04:15 Hct 29.9 % (37.5-50.1) L 05/24/19 04:15 MCH 26.2 pg (28.0-33.3) L 05/24/19 04:15 MCHC 30.1 g/dL (31.6-35.5) L 05/24/19 04:15 RDW 17.2 % (11.5-14.5) H 05/24/19 04:15 Plt Count 506 K/mcL (140-400) H 05/24/19 04:15 MPV 9.2 fL (9.4-12.4) L 05/24/19 04:15 Neutrophils # 12.9 K/mcL (1.6-8.9) H 05/21/19 05:04 Lymphocytes # 0.5 K/mcL (0.6-4.6) L 05/21/19 05:04 Nucleated RBCs/100 WBC 0.3 /100 WBC (0) H 05/24/19 04:15 PT 15.2 Seconds (9.4-12.1) H 05/24/19 04:15 APTT 50.4 Seconds (26.0-36.0) H 05/18/19 20:07 Sodium 134 mEq/L (136-145) L 05/22/19 06:31 Glucose 186 mg/dL (70-105) H 05/24/19 04:15 POC Glucose 196 mg/dL (70-99) H 05/24/19 07:57 Calcium 10.5 mg/dL (8.6-10.3) H 05/19/19 07:08 Total Bilirubin 0.2 mg/dL (0.3-1.0) L 05/18/19 20:07 AST 10 Units/L (13-39) L 05/18/19 20:07 Albumin 3.3 g/dL (3.5-5.7) L 05/18/19 20:07 Albumin/Globulin Ratio 0.9 (1.1-2.2) L 05/18/19 20:07 Crossmatch See Detail 05/19/19 11:25 - VTE Documentation of Mechanical Device: Intermittent pneumatic compression device Consult Discharge Plan - Plan Additional Instructions: Dressing orders: Cleanse sites with saline, apply triple antibiotic ointment to all sites, wrap insertion pins with xeroform, place drain sponges surrounding pin sites, secure with roll gauze/kerlix, secure with symone. Next dressing change 05/26/19 Will need 2 weeks IV ancef total, continue at ECF Follow up with Dr Barahona. Coumadin held for surgery. Requires INR check 2 days from DC and dose adjustment as needed Referrals: Ed Holley MD [Primary Care Provider] - Daniel Barahona DPM [Partnered Physician] - (requires wound care follow up post op as per Podiatry ) Prescriptions: ceFAZolin [Ancef] 2,000 mg IVPB Q8HR #31 vial Prescription Printed
[2019-05-24] MEDS: FARXIGA 5MG PO SCH (11:52)
[2019-05-24] MEDS: *HR* HYDROcodone/Acet 5/325 mg TABLET PO PRN (11:58)
[2019-05-24] MEDS: *HR* OxyCODONE Immed Rel 5 MG TABLET PO PRN (17:42)
[2019-05-24] MEDS: Sennosides 8.6 MG TABLET PO SCH (17:43)
[2019-05-24] MEDS ORDERED: *HR* Warfarin 7.5 MG TABLET PO ONE (18:00)
[2019-05-24] MEDS: Aspirin Enteric Coated 81 MG Tablet PO SCH (20:55)
[2019-05-25] MEDS: ceFAZolin 2,000 MG in 0.9 % Sodium Chloride 100 ML IVPB SCH ×3 (04:01→18:22)
[2019-05-25 04:40] LABS: Basophils # 0.1 K/mcL (0.0-0.2); Basophils % 0.5 %; Eosinophils # 0.2 K/mcL (0.0-0.6); Eosinophils % 2.3 %; Hematocrit 29.3 % (37.5-50.1); Hemoglobin 8.9 g/dL (12.9-16.9); Immature Granulocytes % 1.5 % (0-4); Lymphocytes # 1.9 K/mcL (0.6-4.6); Lymphocytes % 18.4 %; Mean Corpuscular HGB Conc 30.4 g/dL (31.6-35.5); Mean Corpuscular Hemoglobin 26.3 pg (28.0-33.3); Mean Corpuscular Volume 86.7 fL (83.0-100.0); Monocytes # 0.7 K/mcL (0.0-1.3); Monocytes % 6.6 %; Neutrophils # 7.5 K/mcL (1.6-8.9); Nucleated Red Blood Cells 0.3 /100 WBC (0); Platelet Count 511 K/mcL (140-400); Red Blood Count 3.38 M/mcL (4.19-5.50); Red Cell Distribution Width 17.3 % (11.5-14.5); Segmented Neutrophils % 70.7 %; White Blood Count 10.6 K/mcL (4.3-11.1)
[2019-05-25 04:47] LABS: INR 1.5; Prothrombin Time 16.9 Seconds (9.4-12.1)
[2019-05-25 04:59] LABS: BUN/Creatinine Ratio 18 (6-26); Blood Urea Nitrogen 16 mg/dL (8-23); Calcium 10.1 mg/dL (8.6-10.3); Carbon Dioxide 27 mEq/L (23-29); Chloride 102 mEq/L (98-107); Glucose 223 mg/dL (70-105); Osmolality,Calculated 290 (280-300); Sodium 136 mEq/L (136-145); eGFR For African Americans > 60 (> 60); eGFR For Non-African Americans > 60 (> 60)
--- NOTE | 2019-05-25 05:57 | Physician Discharge Referral ---
ExtendedCare Referral Info Provider in Charge after Transfer: PCP Institutional Level of Care: Skilled - Diagnosis (1) Charcot foot due to diabetes mellitus Priority: Primary Status: Chronic (2) Diabetes mellitus Priority: Secondary Status: Chronic (3) Sleep apnea Priority: Secondary Status: Chronic - Transfer Medications Prescriptions: ceFAZolin [Ancef] 2,000 mg IVPB Q8HR #31 vial Prescription Printed Docusate [Colace] 100 mg PO BID 28 Days capsule Prescription Printed OxyCODONE Immed Rel [Roxicodone 5 MG] 7.5 mg PO Q6HR PRN 1 Days tablet PRN Reason: Severe Pain (7-10) Prescription Printed Sennosides 8.6 mg PO DAILY 28 Days #28 tablet Prescription Printed Home Medications: Amitriptyline HCl 25 mg PO QPM 04/17/18 [History] Atorvastatin Calcium [Lipitor] 40 mg PO HS 04/17/18 [History] Cholecalciferol (Vitamin D3) [Vitamin D3] 5,000 unit PO DAILY 04/17/18 [History] Fenofibrate Nanocrystallized [Fenofibrate] 145 mg PO DAILY 04/17/18 [History] Furosemide [Lasix] 40 mg PO DAILY 04/17/18 [History] Multivitamin [Multivitamins] 1 each PO DAILY 04/17/18 [History] Testosterone [Androgel] 10 gm TD DAILY 04/17/18 [History] Ascorbic Acid [Vitamin C] 500 mg PO DAILY 07/15/18 [History] Lisinopril [Zestril] 5 mg PO DAILY 07/15/18 [History] Glyburide/Metformin HCl [Glyburide-Metformin 5-500 mg] 1 tab PO QPM 09/24/18 [History] Glyburide/Metformin HCl [Glyburide-Metformin 5-500 mg] 2 tab PO QAM 09/24/18 [History] Liraglutide [Victoza 2-[place]] 30 mg SQ Q48H 09/24/18 [History] Metformin HCl 500 mg PO QPM 09/24/18 [History] Pioglitazone HCl [Actos] 45 mg PO DAILY 09/24/18 [History] Polyethylene Glycol 3350 [MiraLAX] 17 gm PO DAILY PRN 09/24/18 [History] Aspirin Enteric Coated [Aspirin EC] 81 mg PO HS 11/17/18 [History] Dapagliflozin Propanediol [Farxiga] 5 mg PO DAILY 11/17/18 [History] Warfarin [Coumadin] 5 mg PO MOWE 11/17/18 [History] [place]-3/Dha/Epa/Fish Oil [Fish Oil 1,000 mg Softgel] 1 cap PO DAILY 03/11/19 [History] Warfarin [Coumadin] 7.5 mg PO SUTUTHFRSA 03/11/19 [History] Carvedilol [Coreg] 25 mg PO BID 04/15/19 [History] HYDROcodone/Acet 5/325 mg [[place] 5-325 mg] 1 tab PO Q6H PRN 5 Days #20 tab 04/15/19 [Rx] Omeprazole [PriLOSEC] 40 mg PO HS 05/18/19 [History] ceFAZolin [Ancef] 2,000 mg IVPB Q8HR #31 vial 05/24/19 [Rx] Docusate [Colace] 100 mg PO BID 28 Days capsule 05/25/19 [Rx] OxyCODONE Immed Rel [Roxicodone 5 MG] 7.5 mg PO Q6HR PRN 1 Days tablet 05/25/19 [Rx] Sennosides 8.6 mg PO DAILY 28 Days #28 tablet 05/25/19 [Rx] Allergies/Adverse Reactions: Allergy/AdvReac Type Severity Reaction Status Date / Time No Known Allergies Allergy Verified 04/15/19 13:38 - Respiratory Orders Other (CPAP HS FOR JEAN), None Smoking Cessation: Smoking cessation has been advised. For more information, call the [place] Tobacco Quit Line at 3-305-WXXU-NOW. - Lab Orders Lab Orders: Other (include drug levels w/frequency) (INR CHECK IN 2 DAYS, GOAL IS 2-3) - Ancillary Orders May use pressure relief devices daily prn - Advance Directives Code Status: Full Code - Mobility Orders Other (NON WEIGHT BEARING RIGHT LOWER EXTREMITY) - Rehabiliation Orders Rehab Potential: Good Rehab Orders: ROM Exercises, Evaluation for Physical Therapy, Evaluation for Occupational Therapy - Treatments Skin tear care topically daily PRN per policy List/Other: Dressing orders: Cleanse sites with saline, apply triple antibiotic ointment to all sites, wrap insertion pins with xeroform, place drain sponges surrounding pin sites, secure with roll gauze/kerlix, secure with symone. Next dressing change 05/26/19 Will need 2 weeks IV ancef total, continue at ECF Follow up with Dr Barahona. NON WEIGHT BEARING RIGHT LOWER EXTREMITY Coumadin held for surgery. Requires INR check 2 days from DC and dose adjustment as needed - Diet Orders No Concentrated Sweets CERTIFICATION: I certify that the transfer of the above named patient to an Extended Care Facility is necessary for the continuing treatment of the diagnosis listed. The above information is true and accurate reflection of patient's current conditio n. Confidential - Redisclosure prohibited without a patient's written consent.
--- NOTE | 2019-05-25 07:39 | Discharge Summary ---
<Evette Peck - Last Filed: 05/25/19 17:00> Date of Encounter: 05/25/19 - Discharge Diagnosis (1) Charcot foot due to diabetes mellitus Status: Chronic (2) Diabetes mellitus Status: Chronic Qualifiers: Diabetes mellitus type: type 2 Qualified Code(s): E11.9 - Type 2 diabetes mellitus without complications (3) Sleep apnea Status: Chronic Qualifiers: Sleep apnea type: unspecified type Qualified Code(s): G47.30 - Sleep apnea, unspecified Hospital course: Mr. Barth is a 63 year old male - Time Spent with Patient Total time spent providing and/or coordinating discharge services: - Discharge Medications Prescriptions: New ceFAZolin [Ancef] 2,000 mg IVPB Q8HR #31 vial Docusate [Colace] 100 mg PO BID 28 Days capsule Sennosides 8.6 mg PO DAILY 28 Days #28 tablet OxyCODONE Immed Rel [Roxicodone 5 MG] 7.5 mg PO Q6HR PRN 1 Days tablet PRN Reason: Severe Pain (7-10) Continued Atorvastatin Calcium [Lipitor] 40 mg PO HS Cholecalciferol (Vitamin D3) [Vitamin D3] 5,000 unit PO DAILY Multivitamin [Multivitamins] 1 each PO DAILY Amitriptyline HCl 25 mg PO QPM Fenofibrate Nanocrystallized [Fenofibrate] 145 mg PO DAILY Furosemide [Lasix] 40 mg PO DAILY Testosterone [Androgel] 10 gm TD DAILY Lisinopril [Zestril] 5 mg PO DAILY Ascorbic Acid [Vitamin C] 500 mg PO DAILY Metformin HCl 500 mg PO QPM Pioglitazone HCl [Actos] 45 mg PO DAILY Glyburide/Metformin HCl [Glyburide-Metformin 5-500 mg] 1 tab PO QPM Glyburide/Metformin HCl [Glyburide-Metformin 5-500 mg] 2 tab PO QAM Liraglutide [Victoza 2-Jose Cruz] 30 mg SQ Q48H Polyethylene Glycol 3350 [MiraLAX] 17 gm PO DAILY PRN PRN Reason: Constipation Dapagliflozin Propanediol [Farxiga] 5 mg PO DAILY Warfarin [Coumadin] 5 mg PO MOWE Aspirin Enteric Coated [Aspirin EC] 81 mg PO HS [place]-3/Dha/Epa/Fish Oil [Fish Oil 1,000 mg Softgel] 1 cap PO DAILY Warfarin [Coumadin] 7.5 mg PO SUTUTHFRSA Carvedilol [Coreg] 25 mg PO BID HYDROcodone/Acet 5/325 mg [Lusk 5-325 mg] 1 tab PO Q6H PRN 5 Days #20 tab PRN Reason: Pain Omeprazole [PriLOSEC] 40 mg PO HS Home Medications: Amitriptyline HCl 25 mg PO QPM 04/17/18 [History] Atorvastatin Calcium [Lipitor] 40 mg PO HS 04/17/18 [History] Cholecalciferol (Vitamin D3) [Vitamin D3] 5,000 unit PO DAILY 04/17/18 [History] Fenofibrate Nanocrystallized [Fenofibrate] 145 mg PO DAILY 04/17/18 [History] Furosemide [Lasix] 40 mg PO DAILY 04/17/18 [History] Multivitamin [Multivitamins] 1 each PO DAILY 04/17/18 [History] Testosterone [Androgel] 10 gm TD DAILY 04/17/18 [History] Ascorbic Acid [Vitamin C] 500 mg PO DAILY 07/15/18 [History] Lisinopril [Zestril] 5 mg PO DAILY 07/15/18 [History] Glyburide/Metformin HCl [Glyburide-Metformin 5-500 mg] 1 tab PO QPM 09/24/18 [History] Glyburide/Metformin HCl [Glyburide-Metformin 5-500 mg] 2 tab PO QAM 09/24/18 [History] Liraglutide [Victoza 2-Jose Cruz] 30 mg SQ Q48H 09/24/18 [History] Metformin HCl 500 mg PO QPM 09/24/18 [History] Pioglitazone HCl [Actos] 45 mg PO DAILY 09/24/18 [History] Polyethylene Glycol 3350 [MiraLAX] 17 gm PO DAILY PRN 09/24/18 [History] Aspirin Enteric Coated [Aspirin EC] 81 mg PO HS 11/17/18 [History] Dapagliflozin Propanediol [Farxiga] 5 mg PO DAILY 11/17/18 [History] Warfarin [Coumadin] 5 mg PO MOWE 11/17/18 [History] [place]-3/Dha/Epa/Fish Oil [Fish Oil 1,000 mg Softgel] 1 cap PO DAILY 03/11/19 [History] Warfarin [Coumadin] 7.5 mg PO SUTUTHFRSA 03/11/19 [History] Carvedilol [Coreg] 25 mg PO BID 04/15/19 [History] HYDROcodone/Acet 5/325 mg [[place] 5-325 mg] 1 tab PO Q6H PRN 5 Days #20 tab 04/15/19 [Rx] Omeprazole [PriLOSEC] 40 mg PO HS 05/18/19 [History] ceFAZolin [Ancef] 2,000 mg IVPB Q8HR #31 vial 05/24/19 [Rx] Docusate [Colace] 100 mg PO BID 28 Days capsule 05/25/19 [Rx] OxyCODONE Immed Rel [Roxicodone 5 MG] 7.5 mg PO Q6HR PRN 1 Days tablet 05/25/19 [Rx] Sennosides 8.6 mg PO DAILY 28 Days #28 tablet 05/25/19 [Rx] Allergies/Adverse Reactions: Allergy/AdvReac Type Severity Reaction Status Date / Time No Known Allergies Allergy Verified 04/15/19 13:38 Date of admission: 05/20/19 15:33 Primary care physician: Ed Holley MD Consults: 05/19/19 04:37 Consult to Podiatry [CONS] Routine Consulting Provider: [facility] Reason for Consult: Reports being sent from Podiatry office to ER for plans to go to OR today for charcot foot. Call Completed: No 05/19/19 06:52 Consult to Cardiology [CONS] Routine Comment: Consulting Provider: [facility] Reason for Consult: Plan to go to OR with Podiatry today for charcot foot. Admission EKG shows new T wave inversion in AVL. Also appears to have non sustained vtach on tele. Please see for cardio clearance for surgery. Call Completed: No 05/21/19 10:45 Consult to Occupational Therapy [CONS] Routine Comment: Evaluate, develop and implement POC Reason for Consult: s/p R ankle fusion revision with external fixator, NWB RLE Does patient have active BEDREST order?: No Is patient medically & hemodynamically stable?: Yes Consult to Physical Therapy [CONS] Routine Comment: Evaluate, develop and implement POC Reason for Consult: s/p R ankle fusion revision with external fixator, NWB RLE Does patient have active BEDREST order?: No Is patient medically & hemodynamically stable?: Yes Consult to [employer] [CONS] Routine Reason for SW Consult: potential needs on d/c - Constitutional Vitals: Temp Pulse Resp BP Pulse Ox 98.3 F 65 15 126/55 97 05/25/19 16:16 05/25/19 16:16 05/25/19 16:16 05/25/19 16:16 05/25/19 16:16 - Patient Status Disposition: Transfer SNF Condition: Good - Discharge Instructions Follow Up With: Ed Holley MD [Primary Care Provider] - Daniel Barahona DPM [Partnered Physician] - (requires wound care follow up post op as per Podiatry ) Additional Instructions: Dressing orders: Cleanse sites with saline, apply triple antibiotic ointment to all sites, wrap insertion pins with xeroform, place drain sponges surrounding pin sites, secure with roll gauze/kerlix, secure with symone. Next dressing change 05/26/19 Will need 2 weeks IV ancef total, continue at [facility] Follow up with Dr Barahona. NON WEIGHT BEARING RIGHT LOWER EXTREMITY Coumadin held for surgery. Requires INR check 2 days from DC and dose adjustment as needed - Attending Attestation I examined this patient and my medical decision-making was reviewed with the Resident Physician Dr Johnson. I agree with the documented findings, disposition and treatment plan as described except to the extent set forth below. Mr Barth is being observed for Charcot foot requiring surgical intervention and is being dc to snf in stable condition awake, no pain,+ flatus,still no bm, no abd pain n/v/ or difficulty eating. he is not bothered by this as he notes it takes him up to a week post op regularly to move bowels when he isnt up and moving. he is happy to dc today. he has no questions or concerns regarding dc plan gen- alert, awake,appears stated age cv- reg rate and rhythm, normal s1,s2 lungs- ctabl, norm resp effort on ra abd- soft, nd, nt + bs neuro- AAOx3 Charcot Foot requiring surgical intervention- post op care as per podiatry, given his complications in past requires 2w ancef,dc to snf outpt fu Afib hx on AC, NSR / subtherapeutic inr- cont home warfarin, INR 1.5 today, no bridging due to bleeding risk, inr check will be required 2 days post dc Chronic anemia on AC, possibly related, at baseline DM- may resume home regimen on dc constipation- colace + senna on dc further dx and plan as noted by resident time spent on dc 40 min <Viola Johnsonmoe Gonzalez - Last Filed: 05/25/19 19:19> - NOTES TO OUTPATIENT PROVIDER Notes to Outpatient Provider: Patient will continue on cefazolin for total of 2 weeks. Dressing changes for surgical site should continue as per podiatry. Patient has currently been put on Colace 100 mg twice a day and senna daily due to bowels not moving. He has also been given 1 day of oxycodone 5 mg at discharge. Date of Encounter: 05/25/19 Time of Encounter: 08:25 - Discharge Diagnosis (1) Charcot foot due to diabetes mellitus Priority: Primary Status: Chronic (2) Decreased hemoglobin Priority: Secondary Status: Chronic (3) Leukocytosis Priority: Secondary Status: Acute Qualifiers: Leukocytosis type: unspecified Qualified Code(s): D72.829 - Elevated white blood cell count, unspecified (4) Hyponatremia Priority: Secondary Status: Acute (5) Diabetes mellitus Priority: Secondary Status: Chronic Qualifiers: Diabetes mellitus type: type 2 Qualified Code(s): E11.9 - Type 2 diabetes mellitus without complications (6) Sleep apnea Priority: Secondary Status: Chronic Qualifiers: Sleep apnea type: unspecified type Qualified Code(s): G47.30 - Sleep apnea, unspecified (7) Constipation Priority: Secondary Status: Acute (8) Afib Priority: Secondary Status: Chronic Qualifiers: Atrial fibrillation type: chronic Hospital course: Mr. Barth is a 63 year old male with past medical history of hypertension, atrial fibrillation, sick sinus syndrome with pacemaker, DVT, COPD, diabetes, GERD, obstructive sleep apnea who presented for surgery for Charcot foot from diabetes. He had had previous similar surgeries on 03/11, 04/15. On EKG there was sinus rhythm and no ST changes but there were T wave inversions on aVL which was a change from 04/21/18. Chest x-ray showed minimal bibasilar atelectasis, left more than right. Overnight, patient had episode of NSVT. Cardiology gave recommendation that he be cleared for surgery. Patient was put on Cefazolin 2 g post op for total of 2 weeks. Patient also received 1 unit packed red blood cells before surgery due to anemia. He was cleared for discharge to SNF and given one days worth of oxycodone 5 mg for pain management. He was also sent on Colace 100 mg twice a day and senna, as bowels had not moved. Patient will be due for dressing change on . He has follow-ups with podiatry and PCP. - Time Spent with Patient Total time spent providing and/or coordinating discharge services: Date of admission: 05/20/19 15:33 Primary care physician: Ed Holley MD Consults: 05/19/19 04:37 Consult to Podiatry [CONS] Routine Consulting Provider: [facility] Reason for Consult: Reports being sent from Podiatry office to ER for plans to go to OR today for charcot foot. Call Completed: No 05/19/19 06:52 Consult to Cardiology [CONS] Routine Comment: Consulting Provider: [facility] Reason for Consult: Plan to go to OR with Podiatry today for charcot foot. Admission EKG shows new T wave inversion in AVL. Also appears to have non sustained vtach on tele. Please see for cardio clearance for surgery. Call Completed: No 05/21/19 10:45 Consult to Occupational Therapy [CONS] Routine Comment: Evaluate, develop and implement POC Reason for Consult: s/p R ankle fusion revision with external fixator, NWB RLE Does patient have active BEDREST order?: No Is patient medically & hemodynamically stable?: Yes Consult to Physical Therapy [CONS] Routine Comment: Evaluate, develop and implement POC Reason for Consult: s/p R ankle fusion revision with external fixator, NWB RLE Does patient have active BEDREST order?: No Is patient medically & hemodynamically stable?: Yes Consult to [employer] [CONS] Routine Reason for SW Consult: potential needs on d/c Discharging clinician: Jana Johnson Anticipated date of discharge: 05/25/19 - Constitutional Vitals: Temp Pulse Resp BP Pulse Ox 98.3 F 60 17 138/76 99 05/25/19 07:15 05/25/19 07:15 05/25/19 07:15 05/25/19 07:15 05/25/19 07:15 Exam: GENERAL: Conversant, in no acute distress. EYES: Anicteric, clear sclerae. Pupils equal and reactive to light bilaterally. HENT: Atraumatic, normocephalic. Moist mucosa. NECK: Supple. Normal carotid pulses. CV: Regular rate and rhythm. Normal S1 and S2. No murmurs, clicks, or gallops. RESPIRATORY: Clear to auscultation bilaterally. No wheezes, rhonchi, or rales. ABDOMEN: Soft, nontender, nondistended. Normal bowel sounds. NEUROLOGICAL: No focal deficits noted. SKIN: Warm, dry. No rashes or lesions. EXTREMITIES: Peripheral pulses 2/4 bilaterally. Capillary refill <2 sec. No edema or cyanosis noted. Right foot has surgical dressings and external fixation. Dressings are clean, dry, intact. - Patient Status Functional capacity at discharge: uses cane/walker Overall status at discharge: patient is progressing back to baseline - Diet and Activity Activity: as per physical therapy Diet: diabetic diet - VTE Documentation of Mechanical Device: Intermittent pneumatic compression device
[2019-05-25] MEDS: Furosemide 40 MG TABLET PO SCH (08:26)
[2019-05-25] MEDS: Fenofibrate 54 MG TABLET PO SCH (08:26)
[2019-05-25] MEDS: Cholecalciferol (D-3) 1,000 UNIT (25MCG) TABLET PO SCH (08:27)
[2019-05-25] MEDS: Sennosides 8.6 MG TABLET PO SCH (08:27)
[2019-05-25] MEDS: Ascorbic Acid 500 MG TABLET PO SCH (08:27)
[2019-05-25] MEDS: FARXIGA 5MG PO SCH (08:28)
[2019-05-25] MEDS: Insulin LISPRO 300 UNITS/3 ML VIAL SQ SCH ×3 (08:29→19:04)
[2019-05-25] MEDS ORDERED: *HR* Warfarin 5 MG TABLET PO ONE ×2 (13:12→18:00)
[2019-05-25 16:20] VITALS: BP 126/55
[2019-05-25] MEDS: *HR* OxyCODONE Immed Rel 5 MG TABLET PO PRN (18:22)
== END 2019-05-25 18:40 | DRG 493 ==
LOC: 3NENU 18:08 → EMEROOARM 18:08 → SUATTDRO 21:17 → 3NENU 21:45
PROVIDERS: ADMIT Internal Medicine; ATTEND Internal Medicine

== ENCOUNTER 2021-07-04 10:49 | Inpatient (IN) ==
[~2021-07-04 10:49] MED LIST: Famotidine 20 MG TABLET PO ONE
[2021-07-04] MEDS ORDERED: *HR* HYDROmorphone PF 0.5 MG/0.5 ML SYRINGE IVP PRN (11:02)
[2021-07-04] MEDS ORDERED: *HR* FentaNYL (PF) 100 MCG/2 ML VIAL IVP PRN (11:02)
[2021-07-04] MEDS ORDERED: Ondansetron 4 MG/2 ML VIAL IVP PRN ×2 (11:02→14:28)
[2021-07-04] MEDS ORDERED: Ipratropium/Albuterol Neb 3 ML IH ONE (11:04)
[2021-07-04] MEDS ORDERED: CeFAZolin Syr 3,000MG/30 ML 3,000 MG/30 ML SYRINGE IVPB ONE (11:05)
[2021-07-04] MEDS ORDERED: *HR* FentaNYL (PF) 100 MCG/2 ML VIAL ONE (11:31)
[2021-07-04] MEDS ORDERED: *HR* Midazolam HCl 2 MG/2 ML VIAL ONE (11:31)
[2021-07-04] MEDS: Ringers Solution, Lactated 1,000 ML IVC SCH ×2 (11:32→21:25)
[2021-07-04] MEDS ORDERED: Ropivacaine/PF 0.5% 30 ML VIAL ONE (11:33)
[2021-07-04] MEDS ORDERED: ROPIVACAINE/PF/NS 0.25% 1 EACH SYRINGE INTRAART ONE (11:33)
[2021-07-04] MEDS ORDERED: *HR* Propofol 200 MG/20 ML VIAL IVP ONE ×3 (12:09→16:50)
[2021-07-04] MEDS ORDERED: Lidocaine -MPF 2% 5 ML VIAL ONE (12:29)
[2021-07-04] MEDS ORDERED: *HR* Succinylcholine 200 MG/10 ML VIAL IVP ONE (12:31)
[2021-07-04] MEDS ORDERED: *HR* Rocuronium Bromide 50 MG/5 ML VIAL ONE (12:31)
[2021-07-04] MEDS ORDERED: Ondansetron 4 MG/2 ML VIAL ONE (12:32)
[2021-07-04] MEDS ORDERED: Lidocaine -MPF 4% 5 ML AMPUL ONE (12:34)
[2021-07-04] MEDS ORDERED: *HR* OxyCODONE Immed Rel 5 MG TABLET PO PRN (14:19)
[2021-07-04] MEDS ORDERED: Dexmedetomidine HCl 400 MCG/100 ML MLS IVC ONE (14:33)
[2021-07-04] MEDS ORDERED: Bupivacaine/EPI 1:200k 0.25% 50 ML VIAL ONE (15:02)
[2021-07-04] MEDS ORDERED: *HR* Warfarin 5 MG TABLET PO SCH (18:00)
[2021-07-04] MEDS ORDERED: *HR* Enoxaparin 150 MG/ML SYRINGE SQ SCH (18:00)
[2021-07-04] MEDS ORDERED: Warfarin perPT PO PRN (18:08)
[2021-07-04] MEDS ORDERED: *HR* Warfarin 4 MG TABLET PO ONE (19:15)
[2021-07-04] MEDS: *HR* GlyBURIDE 5 MG TABLET PO SCH (21:20)
[2021-07-04] MEDS: CeFAZolin 2,000 MG/120 ML BAG IVPB SCH (21:23)
[2021-07-04] MEDS: carvediloL 25 MG TABLET PO SCH (21:23)
[2021-07-05 05:41] LABS: INR 1.2; Prothrombin Time 13.9 Seconds (9.4-12.1)
[2021-07-05] MEDS: CeFAZolin 2,000 MG/120 ML BAG IVPB SCH (05:54)
[2021-07-05] MEDS ORDERED: *HR* Metformin 500 MG TABLET PO SCH (08:00)
[2021-07-05] MEDS: carvediloL 25 MG TABLET PO SCH ×2 (08:54→15:28)
[2021-07-05] MEDS: *HR* GlyBURIDE 5 MG TABLET PO SCH (08:54)
[2021-07-05] MEDS: Furosemide 40 MG TABLET PO SCH (08:54)
[2021-07-05] MEDS: lisinopriL 5 MG TABLET PO SCH (08:54)
[2021-07-05] MEDS ORDERED: *HR* OxyCODONE Immed Rel 5 MG TABLET PO PRN ×2 (10:20→10:22)
[2021-07-05] MEDS ORDERED: D5% in Water 1,000 ML IVC PRN (10:27)
[2021-07-05] MEDS ORDERED: Dextrose Gel 15 GM/37.5 ML TUBE PO PRN ×2 (10:27)
[2021-07-05] MEDS ORDERED: *HR* Dextrose 50 % in Water (Syg) 50 ML SYRINGE IVP PRN (10:27)
[2021-07-05 10:33] LABS: BUN/Creatinine Ratio 12 (6-26); Blood Urea Nitrogen 13 mg/dL (8-23); Calcium 9.6 mg/dL (8.6-10.3); Carbon Dioxide 28 mEq/L (23-29); Chloride 102 mEq/L (98-107); Glucose 268 mg/dL (70-105); Osmolality,Calculated 290 (280-300); Potassium 4.3 mEq/L (3.5-5.1); Sodium 135 mEq/L (136-145); eGFR For African Americans > 60 (> 60); eGFR For Non-African Americans > 60 (> 60)
[2021-07-05] MEDS: *HR* Enoxaparin 150 MG/ML SYRINGE SQ SCH (12:03)
[2021-07-05] MEDS: Insulin DETEMIR 100 UNIT/ML X5UNITS SUBQ SCH (12:04)
[2021-07-05] MEDS: Insulin LISPRO 300 UNITS/3 ML VIAL SUBQ SCH ×3 (12:10→20:48)
[2021-07-05] MEDS: Cefepime HCl 2,000 MG in Water for inj. (sterile) 20 ML IVP SCH ×2 (12:44→20:47)
[2021-07-05] MEDS: Vancomycin 2,000 MG/520 ML IV.SOLN IVPB SCH (13:06)
[2021-07-05 13:37] LABS: Basophils % 0.2 %; Hematocrit 31.4 % (37.5-50.1); Hemoglobin 9.4 g/dL (12.9-16.9); Lymphocytes # 1.1 K/mcL (0.6-4.6); Lymphocytes % 6.8 %; Mean Corpuscular HGB Conc 29.9 g/dL (31.6-35.5); Mean Corpuscular Hemoglobin 26.5 pg (28.0-33.3); Mean Corpuscular Volume 88.5 fL (83.0-100.0); Mean Platelet Volume 9.9 fL (9.4-12.4); Monocytes # 1.1 K/mcL (0.0-1.3); Monocytes % 7.1 %; Neutrophils # 13.1 K/mcL (1.6-8.9); Platelet Count 364 K/mcL (140-400); Red Blood Count 3.55 M/mcL (4.19-5.50); Segmented Neutrophils % 84.9 %; White Blood Count 15.4 K/mcL (4.3-11.1)
[2021-07-05 14:20] LABS: Estimated Average Glucose 148 mg/dl; Hemoglobin A1C 6.8 %
[2021-07-05] MEDS: metroNIDAZOLE 500 MG TABLET PO SCH ×2 (15:28→20:47)
[2021-07-05] MEDS ORDERED: MetroNIDAZOLE 500 MG/100 ML 500 MG/100 ML BAG IVPB SCH (16:00)
[2021-07-05] MEDS ORDERED: *HR* Warfarin 4 MG TABLET PO ONE (18:00)
[2021-07-06] MEDS: Vancomycin 2,000 MG/520 ML IV.SOLN IVPB SCH ×2 (00:30→11:05)
[2021-07-06] MEDS: *HR* Enoxaparin 150 MG/ML SYRINGE SQ SCH ×2 (00:30→11:03)
[2021-07-06 04:36] LABS: INR 1.3; Prothrombin Time 14.5 Seconds (9.4-12.1)
[2021-07-06] MEDS: Cefepime HCl 2,000 MG in Water for inj. (sterile) 20 ML IVP SCH ×3 (05:42→19:39)
[2021-07-06] MEDS: Insulin LISPRO 300 UNITS/3 ML VIAL SUBQ SCH ×4 (08:12→20:08)
[2021-07-06] MEDS: Insulin DETEMIR 100 UNIT/ML X5UNITS SUBQ SCH (08:12)
[2021-07-06] MEDS: carvediloL 25 MG TABLET PO SCH ×2 (08:12→17:27)
[2021-07-06] MEDS: Furosemide 40 MG TABLET PO SCH (08:12)
[2021-07-06] MEDS: metroNIDAZOLE 500 MG TABLET PO SCH ×2 (08:12→17:27)
[2021-07-06] MEDS ORDERED: Aspirin 81 MG TAB.CHEW PO SCH (09:00)
[2021-07-06 16:58] LABS: Basophils # 0.1 K/mcL (0.0-0.2); Basophils % 0.5 %; Eosinophils # 0.3 K/mcL (0.0-0.6); Eosinophils % 2.8 %; Hematocrit 27.1 % (37.5-50.1); Hemoglobin 8.6 g/dL (12.9-16.9); Immature Granulocytes % 1.3 % (0-4); Lymphocytes # 1.2 K/mcL (0.6-4.6); Lymphocytes % 11.4 %; Mean Corpuscular HGB Conc 31.7 g/dL (31.6-35.5); Mean Corpuscular Hemoglobin 27.8 pg (28.0-33.3); Mean Corpuscular Volume 87.7 fL (83.0-100.0); Mean Platelet Volume 9.7 fL (9.4-12.4); Monocytes # 0.9 K/mcL (0.0-1.3); Monocytes % 8.9 %; Neutrophils # 7.9 K/mcL (1.6-8.9); Platelet Count 329 K/mcL (140-400); Red Blood Count 3.09 M/mcL (4.19-5.50); Red Cell Distribution Width 16.3 % (11.5-14.5); Segmented Neutrophils % 75.1 %; White Blood Count 10.5 K/mcL (4.3-11.1)
[2021-07-06 17:16] LABS: BUN/Creatinine Ratio 19 (6-26); Blood Urea Nitrogen 19 mg/dL (8-23); Calcium 9.7 mg/dL (8.6-10.3); Carbon Dioxide 27 mEq/L (23-29); Chloride 105 mEq/L (98-107); Glucose 191 mg/dL (70-105); Osmolality,Calculated 291 (280-300); Potassium 4.1 mEq/L (3.5-5.1); Sodium 137 mEq/L (136-145); eGFR For African Americans > 60 (> 60); eGFR For Non-African Americans > 60 (> 60)
[2021-07-06] MEDS ORDERED: *HR* Warfarin 4 MG TABLET PO ONE (18:00)
[2021-07-07] MEDS: metroNIDAZOLE 500 MG TABLET PO SCH ×4 (00:21→20:41)
[2021-07-07] MEDS: *HR* Enoxaparin 150 MG/ML SYRINGE SQ SCH ×3 (00:21→23:24)
[2021-07-07] MEDS: Vancomycin 2,000 MG/520 ML IV.SOLN IVPB SCH ×3 (00:21→23:23)
[2021-07-07] MEDS: Cefepime HCl 2,000 MG in Water for inj. (sterile) 20 ML IVP SCH ×3 (03:50→20:41)
[2021-07-07 05:05] LABS: Basophils # 0.1 K/mcL (0.0-0.2); Basophils % 0.6 %; Eosinophils # 0.3 K/mcL (0.0-0.6); Eosinophils % 3.4 %; Hemoglobin 8.1 g/dL (12.9-16.9); Immature Granulocytes % 1.3 % (0-4); Lymphocytes # 1.3 K/mcL (0.6-4.6); Lymphocytes % 13.9 %; Mean Corpuscular Hemoglobin 26.2 pg (28.0-33.3); Mean Corpuscular Volume 87.4 fL (83.0-100.0); Mean Platelet Volume 9.6 fL (9.4-12.4); Monocytes # 0.8 K/mcL (0.0-1.3); Monocytes % 8.9 %; Neutrophils # 6.8 K/mcL (1.6-8.9); Nucleated Red Blood Cells 0.2 /100 WBC (0); Platelet Count 334 K/mcL (140-400); Red Blood Count 3.09 M/mcL (4.19-5.50); Red Cell Distribution Width 16.2 % (11.5-14.5); Segmented Neutrophils % 71.9 %; White Blood Count 9.4 K/mcL (4.3-11.1)
[2021-07-07 05:11] LABS: INR 1.4; Prothrombin Time 15.7 Seconds (9.4-12.1)
[2021-07-07 05:25] LABS: BUN/Creatinine Ratio 19 (6-26); Blood Urea Nitrogen 16 mg/dL (8-23); Calcium 9.4 mg/dL (8.6-10.3); Carbon Dioxide 24 mEq/L (23-29); Chloride 105 mEq/L (98-107); Glucose 188 mg/dL (70-105); Osmolality,Calculated 288 (280-300); Potassium 3.9 mEq/L (3.5-5.1); Sodium 136 mEq/L (136-145); eGFR For African Americans > 60 (> 60); eGFR For Non-African Americans > 60 (> 60)
[2021-07-07] MEDS: carvediloL 25 MG TABLET PO SCH ×2 (08:26→16:41)
[2021-07-07] MEDS: Furosemide 40 MG TABLET PO SCH (08:27)
[2021-07-07] MEDS: Insulin LISPRO 300 UNITS/3 ML VIAL SUBQ SCH ×4 (08:27→20:42)
[2021-07-07] MEDS: Insulin DETEMIR 100 UNIT/ML X5UNITS SUBQ SCH (08:34)
[2021-07-07] MEDS ORDERED: *HR* Warfarin 4 MG TABLET PO ONE (18:00)
[2021-07-08] MEDS: Cefepime HCl 2,000 MG in Water for inj. (sterile) 20 ML IVP SCH ×3 (03:46→20:31)
[2021-07-08 04:59] LABS: INR 1.4; Prothrombin Time 15.7 Seconds (9.4-12.1)
[2021-07-08] MEDS: metroNIDAZOLE 500 MG TABLET PO SCH ×3 (08:39→20:31)
[2021-07-08] MEDS: carvediloL 25 MG TABLET PO SCH ×2 (08:40→17:11)
[2021-07-08] MEDS: lisinopriL 5 MG TABLET PO SCH (08:40)
[2021-07-08] MEDS: Furosemide 40 MG TABLET PO SCH (08:40)
[2021-07-08] MEDS: Insulin LISPRO 300 UNITS/3 ML VIAL SUBQ SCH ×4 (08:41→20:33)
[2021-07-08] MEDS ORDERED: Insulin DETEMIR 100 UNIT/ML X5UNITS SUBQ SCH (09:00)
[2021-07-08] MEDS: Vancomycin 2,000 MG/520 ML IV.SOLN IVPB SCH (12:10)
[2021-07-08] MEDS: *HR* Enoxaparin 150 MG/ML SYRINGE SQ SCH ×2 (12:11→22:52)
[2021-07-08] MEDS ORDERED: polyethylene glycoL 3350 17 GM POWD.PACK PO PRN (15:25)
[2021-07-08] MEDS ORDERED: *HR* Warfarin 3 MG TABLET PO ONE (18:00)
[2021-07-08] MEDS: Sennosides/Docusate Sodium TABLET PO SCH (20:31)
[2021-07-09] MEDS: Vancomycin 2,000 MG/520 ML IV.SOLN IVPB SCH (00:02)
[2021-07-09] MEDS: Cefepime HCl 2,000 MG in Water for inj. (sterile) 20 ML IVP SCH ×3 (03:16→20:54)
[2021-07-09 04:24] LABS: Hematocrit 26.6 % (37.5-50.1); Mean Corpuscular HGB Conc 30.1 g/dL (31.6-35.5); Mean Corpuscular Hemoglobin 26.6 pg (28.0-33.3); Mean Corpuscular Volume 88.4 fL (83.0-100.0); Mean Platelet Volume 9.9 fL (9.4-12.4); Platelet Count 359 K/mcL (140-400); Red Blood Count 3.01 M/mcL (4.19-5.50)
[2021-07-09 04:29] LABS: INR 1.4; Prothrombin Time 15.5 Seconds (9.4-12.1)
[2021-07-09 04:42] LABS: BUN/Creatinine Ratio 19 (6-26); Blood Urea Nitrogen 17 mg/dL (8-23); Carbon Dioxide 27 mEq/L (23-29); Chloride 106 mEq/L (98-107); Glucose 222 mg/dL (70-105); Osmolality,Calculated 296 (280-300); Potassium 4.2 mEq/L (3.5-5.1); Sodium 139 mEq/L (136-145); eGFR For African Americans > 60 (> 60); eGFR For Non-African Americans > 60 (> 60)
[2021-07-09] MEDS ORDERED: Vancomycin 1,500 MG/265 ML IV.SOLN IVPB SCH (06:00)
[2021-07-09] MEDS: Furosemide 40 MG TABLET PO SCH (08:18)
[2021-07-09] MEDS: metroNIDAZOLE 500 MG TABLET PO SCH ×3 (08:18→20:42)
[2021-07-09] MEDS: Sennosides/Docusate Sodium TABLET PO SCH ×3 (08:18→20:42)
[2021-07-09] MEDS: carvediloL 25 MG TABLET PO SCH ×2 (08:18→19:44)
[2021-07-09] MEDS: lisinopriL 5 MG TABLET PO SCH (08:18)
[2021-07-09] MEDS: Insulin LISPRO 300 UNITS/3 ML VIAL SUBQ SCH ×4 (08:19→20:41)
[2021-07-09] MEDS: Insulin DETEMIR 100 UNIT/ML X5UNITS SUBQ SCH (08:19)
[2021-07-09] MEDS ORDERED: Lidocaine -MPF 1% 5 ML AMPUL INFILT ONE (14:22)
[2021-07-09] MEDS: *HR* Enoxaparin 150 MG/ML SYRINGE SQ SCH ×2 (16:01→23:15)
[2021-07-09] MEDS ORDERED: *HR* Warfarin 3 MG TABLET PO ONE (18:00)
[2021-07-09] MEDS: Vancomycin 1,250 MG/262.5 ML IV.SOLN IVPB SCH (19:45)
[2021-07-09] MEDS: Aspirin Enteric Coated 81 MG Tablet PO SCH (20:42)
[2021-07-10] MEDS: Cefepime HCl 2,000 MG in Water for inj. (sterile) 20 ML IVP SCH ×3 (04:24→19:39)
[2021-07-10 05:30] LABS: INR 1.5; Prothrombin Time 16.9 Seconds (9.4-12.1)
[2021-07-10] MEDS: Vancomycin 1,250 MG/262.5 ML IV.SOLN IVPB SCH ×2 (06:21→19:38)
[2021-07-10] MEDS: Cholecalciferol (D-3) 1,000 UNIT (25MCG) TABLET PO SCH (08:49)
[2021-07-10] MEDS: Sennosides/Docusate Sodium TABLET PO SCH ×2 (08:49→19:39)
[2021-07-10] MEDS: lisinopriL 5 MG TABLET PO SCH (08:49)
[2021-07-10] MEDS: metroNIDAZOLE 500 MG TABLET PO SCH ×3 (08:49→19:39)
[2021-07-10] MEDS: Furosemide 40 MG TABLET PO SCH (08:50)
[2021-07-10] MEDS: carvediloL 25 MG TABLET PO SCH ×2 (08:50→18:04)
[2021-07-10] MEDS: Insulin LISPRO 300 UNITS/3 ML VIAL SUBQ SCH ×4 (08:59→19:41)
[2021-07-10] MEDS: Insulin DETEMIR 100 UNIT/ML X5UNITS SUBQ SCH (08:59)
[2021-07-10] MEDS: *HR* Enoxaparin 150 MG/ML SYRINGE SQ SCH ×2 (12:00→23:52)
[2021-07-10] MEDS ORDERED: Lidocaine 1% 20 ML MDV ID ONE (12:06)
[2021-07-10] MEDS ORDERED: *HR* Warfarin 3 MG TABLET PO ONE (18:00)
[2021-07-10 19:07] LABS: eGFR For African Americans > 60 (> 60); eGFR For Non-African Americans > 60 (> 60)
[2021-07-10] MEDS: Aspirin Enteric Coated 81 MG Tablet PO SCH (19:39)
[2021-07-11] MEDS: Cefepime HCl 2,000 MG in Water for inj. (sterile) 20 ML IVP SCH ×2 (05:17→12:46)
[2021-07-11] MEDS: Vancomycin 1,250 MG/262.5 ML IV.SOLN IVPB SCH (05:18)
[2021-07-11 05:45] LABS: Basophils # 0.1 K/mcL (0.0-0.2); Basophils % 0.5 %; Eosinophils # 0.5 K/mcL (0.0-0.6); Eosinophils % 4.5 %; Hematocrit 25.9 % (37.5-50.1); Hemoglobin 7.7 g/dL (12.9-16.9); Immature Granulocytes % 1.6 % (0-4); Lymphocytes # 1.3 K/mcL (0.6-4.6); Lymphocytes % 12.2 %; Mean Corpuscular HGB Conc 29.7 g/dL (31.6-35.5); Mean Corpuscular Hemoglobin 26.5 pg (28.0-33.3); Mean Platelet Volume 9.7 fL (9.4-12.4); Monocytes # 0.8 K/mcL (0.0-1.3); Monocytes % 7.6 %; Neutrophils # 7.6 K/mcL (1.6-8.9); Nucleated Red Blood Cells 0.4 /100 WBC (0); Platelet Count 341 K/mcL (140-400); Red Blood Count 2.91 M/mcL (4.19-5.50); Red Cell Distribution Width 16.4 % (11.5-14.5); Segmented Neutrophils % 73.6 %; White Blood Count 10.3 K/mcL (4.3-11.1)
[2021-07-11 05:56] LABS: BUN/Creatinine Ratio 17 (6-26); Blood Urea Nitrogen 14 mg/dL (8-23); Calcium 9.6 mg/dL (8.6-10.3); Carbon Dioxide 26 mEq/L (23-29); Chloride 104 mEq/L (98-107); Glucose 258 mg/dL (70-105); Osmolality,Calculated 289 (280-300); Potassium 4.1 mEq/L (3.5-5.1); Sodium 135 mEq/L (136-145); eGFR For African Americans > 60 (> 60); eGFR For Non-African Americans > 60 (> 60)
[2021-07-11 05:58] LABS: INR 1.7; Prothrombin Time 18.7 Seconds (9.4-12.1)
[2021-07-11] MEDS: Insulin DETEMIR 100 UNIT/ML X5UNITS SUBQ SCH (09:13)
[2021-07-11] MEDS: lisinopriL 5 MG TABLET PO SCH (09:13)
[2021-07-11] MEDS: Sennosides/Docusate Sodium TABLET PO SCH (09:13)
[2021-07-11] MEDS: Furosemide 40 MG TABLET PO SCH (09:13)
[2021-07-11] MEDS: Cholecalciferol (D-3) 1,000 UNIT (25MCG) TABLET PO SCH (09:13)
[2021-07-11] MEDS: metroNIDAZOLE 500 MG TABLET PO SCH ×2 (09:13→16:52)
[2021-07-11] MEDS: carvediloL 25 MG TABLET PO SCH ×2 (09:13→16:52)
[2021-07-11] MEDS: Insulin LISPRO 300 UNITS/3 ML VIAL SUBQ SCH ×3 (09:14→16:52)
[2021-07-11] MEDS: *HR* Enoxaparin 150 MG/ML SYRINGE SQ SCH (12:46)
[2021-07-11 15:47] VITALS: BP 142/73; PULSE 64; TEMP 98.5; O2SAT 93
[2021-07-11] MEDS ORDERED: *HR* Warfarin 3 MG TABLET PO ONE (18:00)
== END 2021-07-11 18:22 | disposition home health service (06) | DRG 629 ==
LOC: 4WAOSI 10:49 → SDCAOSI 10:49 → 4WAOSI 18:39 → SUATTDRO 07-05 17:51
PROVIDERS: ADMIT Podiatrist; ATTEND Internal Medicine

== ENCOUNTER 2021-09-19 10:45 | Inpatient (IN) ==
[~2021-09-19 10:45] MED LIST changes: +*HR* FentaNYL (PF) 100 MCG/2 ML VIAL ONE; +*HR* Midazolam HCl 2 MG/2 ML VIAL ONE; +*HR* Propofol 200 MG/20 ML VIAL IVP ONE; +*HR* Rocuronium Bromide 50 MG/5 ML VIAL ONE; -Famotidine 20 MG TABLET PO ONE; +Lidocaine -MPF 2% 5 ML VIAL ONE; +Ondansetron 4 MG/2 ML VIAL ONE
[2021-09-19] MEDS ORDERED: CeFAZolin Syr 3,000MG/30 ML 3,000 MG/30 ML SYRINGE IVPB ONE (10:55)
[2021-09-19] MEDS ORDERED: Ringers Solution, Lactated 1,000 ML IVC SCH ×2 (11:00→18:56)
[2021-09-19] MEDS ORDERED: Acetaminophen IV 1,000 MG/100 ML BAG IVPB ONE (12:00)
[2021-09-19] MEDS ORDERED: Famotidine 20 MG/2 ML VIAL IVP ONE (12:00)
[2021-09-19] MEDS ORDERED: *HR* Propofol 200 MG/20 ML VIAL IVP ONE (12:06)
[2021-09-19] MEDS ORDERED: *HR* Vasopressin 20 UNIT/ML VIAL ONE (12:25)
[2021-09-19] MEDS ORDERED: *HR* Rocuronium Bromide 50 MG/5 ML VIAL ONE (13:00)
[2021-09-19] MEDS ORDERED: Vancomycin 1,000 MG VIAL ONE ×3 (14:20→14:42)
[2021-09-19] MEDS ORDERED: *HR* HYDROMORPHONE 2 MG/ML VIAL ONE (14:35)
[2021-09-19] MEDS ORDERED: Albumin Human 5% 12.5 GM/250 ML IV.SOLN ONE (16:02)
[2021-09-19] MEDS ORDERED: Tranexamic Acid 1,000 MG/10 ML VIAL ONE (16:02)
[2021-09-19] MEDS ORDERED: Sugammadex Sodium 200 MG/2 ML VIAL IV ONE (16:30)
[2021-09-19 16:40] LABS: VBG Base Excess 1 mEq/L; VBG Chloride 103 mEq/L (98-107); VBG Glucose 180 mg/dl (65-95); VBG HCO3 27 mEq/L (21-27); VBG Ionized Calcium 1.39 mmol/L (1.15-1.35); VBG Oxygen Saturation 97 %; VBG PCO2 46 mmHg (41-51); VBG PH 7.37 pH Units (7.32-7.42); VBG PO2 93 mmHg (25-50); VBG Total CO2 28 mEq/L
[2021-09-19] MEDS ORDERED: Ondansetron 4 MG/2 ML VIAL IVP PRN ×2 (17:45→18:56)
[2021-09-19] MEDS ORDERED: Acetaminophen 325 MG TABLET PO PRN (17:46)
[2021-09-19] MEDS ORDERED: *HR* OxyCODONE Immed Rel 5 MG TABLET PO PRN ×2 (17:46→18:56)
[2021-09-19] MEDS ORDERED: Dextrose Gel 15 GM/37.5 ML TUBE PO PRN ×4 (17:48→18:56)
[2021-09-19] MEDS ORDERED: D5% in Water 1,000 ML IVC PRN ×2 (17:48→18:56)
[2021-09-19] MEDS ORDERED: *HR* Dextrose 50 % in Water (Syg) 50 ML SYRINGE IVP PRN ×2 (17:48→18:56)
[2021-09-19] MEDS: CeFAZolin 2,000 MG/120 ML BAG IVPB SCH (20:02)
[2021-09-19] MEDS ORDERED: CeFAZolin 2,000 MG/120 ML BAG IVPB SCH (22:00)
[2021-09-20] MEDS: CeFAZolin 2,000 MG/120 ML BAG IVPB SCH ×3 (03:06→20:49)
[2021-09-20] MEDS ORDERED: *HR* Enoxaparin 150 MG/ML SYRINGE SQ SCH ×2 (06:00)
[2021-09-20] MEDS ORDERED: Insulin LISPRO 300 UNITS/3 ML VIAL SUBQ SCH (07:30)
[2021-09-20] MEDS ORDERED: *HR* Pioglitazone 45 MG TABLET PO SCH (08:00)
[2021-09-20] MEDS ORDERED: *HR* GlyBURIDE 5 MG TABLET PO SCH (08:00)
[2021-09-20] MEDS ORDERED: *HR* Metformin 500 MG TABLET PO SCH (08:00)
[2021-09-20] MEDS ORDERED: carvediloL 25 MG TABLET PO SCH (08:00)
[2021-09-20] MEDS ORDERED: Aspirin 81 MG TAB.CHEW PO SCH (09:00)
[2021-09-20] MEDS ORDERED: lisinopriL 5 MG TABLET PO SCH (09:00)
[2021-09-20] MEDS ORDERED: Furosemide 40 MG TABLET PO SCH (09:00)
[2021-09-20] MEDS: *HR* GlyBURIDE 5 MG TABLET PO SCH ×2 (09:31→17:27)
[2021-09-20] MEDS: *HR* Pioglitazone 45 MG TABLET PO SCH (09:31)
[2021-09-20] MEDS: Cyanocobalamin (B-12) 1,000 MCG TABLET PO SCH (09:31)
[2021-09-20] MEDS: lisinopriL 5 MG TABLET PO SCH (09:31)
[2021-09-20] MEDS: Aspirin 81 MG TAB.CHEW PO SCH (09:32)
[2021-09-20] MEDS: carvediloL 25 MG TABLET PO SCH ×2 (09:32→17:27)
[2021-09-20] MEDS: Furosemide 40 MG TABLET PO SCH (09:32)
[2021-09-20] MEDS: *HR* Metformin 500 MG TABLET PO SCH ×2 (09:32→17:27)
[2021-09-20] MEDS: Insulin LISPRO 300 UNITS/3 ML VIAL SUBQ SCH ×3 (09:35→17:26)
[2021-09-20] MEDS: Acetaminophen 325 MG TABLET PO PRN (09:50)
[2021-09-20 12:39] LABS: Hematocrit 22.7 % (37.5-50.1); Hematocrit 22.9 % (37.5-50.1); Hemoglobin 6.9 g/dL (12.9-16.9); Hemoglobin 7.1 g/dL (12.9-16.9); Mean Corpuscular HGB Conc 30.1 g/dL (31.6-35.5); Mean Corpuscular Hemoglobin 26.3 pg (28.0-33.3); Mean Corpuscular Volume 87.4 fL (83.0-100.0); Platelet Count 289 K/mcL (140-400); Red Blood Count 2.62 M/mcL (4.19-5.50); Red Cell Distribution Width 15.5 % (11.5-14.5); White Blood Count 11.7 K/mcL (4.3-11.1)
[2021-09-20 12:46] LABS: INR 1.2; Prothrombin Time 13.5 Seconds (9.4-12.1)
[2021-09-20 12:58] LABS: BUN/Creatinine Ratio 15 (6-26); Blood Urea Nitrogen 21 mg/dL (8-23); Carbon Dioxide 24 mEq/L (23-29); Chloride 101 mEq/L (98-107); Glucose 220 mg/dL (70-105); Osmolality,Calculated 284 (280-300); Potassium 4.4 mEq/L (3.5-5.1); Sodium 132 mEq/L (136-145); eGFR For African Americans > 60 (> 60); eGFR For Non-African Americans 52 (> 60)
[2021-09-20] MEDS ORDERED: *HR* Warfarin 4 MG TABLET PO ONE (18:00)
[2021-09-20] MEDS ORDERED: Warfarin perPT PO PRN (18:00)
[2021-09-20 21:13] LABS: Hematocrit 20.6 % (37.5-50.1); Hemoglobin 6.4 g/dL (12.9-16.9)
[2021-09-20] MEDS ORDERED: 0.9 % Sodium Chloride 250 ML ONE (23:05)
[2021-09-21] MEDS: Acetaminophen 325 MG TABLET PO PRN ×2 (03:17→21:44)
[2021-09-21] MEDS: CeFAZolin 2,000 MG/120 ML BAG IVPB SCH ×3 (03:59→21:43)
[2021-09-21 04:58] LABS: Hemoglobin 7.1 g/dL (12.9-16.9); Mean Corpuscular HGB Conc 29.6 g/dL (31.6-35.5); Mean Corpuscular Hemoglobin 26.2 pg (28.0-33.3); Mean Corpuscular Volume 88.6 fL (83.0-100.0); Mean Platelet Volume 10.1 fL (9.4-12.4); Platelet Count 286 K/mcL (140-400); Red Blood Count 2.71 M/mcL (4.19-5.50); Red Cell Distribution Width 15.4 % (11.5-14.5); White Blood Count 10.4 K/mcL (4.3-11.1)
[2021-09-21 05:22] LABS: INR 1.1; Prothrombin Time 12.7 Seconds (9.4-12.1)
[2021-09-21] MEDS: Insulin LISPRO 300 UNITS/3 ML VIAL SUBQ SCH ×3 (07:56→17:59)
[2021-09-21] MEDS: *HR* GlyBURIDE 5 MG TABLET PO SCH ×2 (08:32→18:43)
[2021-09-21] MEDS: *HR* Pioglitazone 45 MG TABLET PO SCH (08:33)
[2021-09-21] MEDS: carvediloL 25 MG TABLET PO SCH ×2 (08:33→18:43)
[2021-09-21] MEDS: Aspirin 81 MG TAB.CHEW PO SCH (08:33)
[2021-09-21] MEDS: *HR* Metformin 500 MG TABLET PO SCH ×2 (08:33→18:43)
[2021-09-21] MEDS: Furosemide 40 MG TABLET PO SCH (08:33)
[2021-09-21] MEDS: Cyanocobalamin (B-12) 1,000 MCG TABLET PO SCH (08:33)
[2021-09-21] MEDS: lisinopriL 5 MG TABLET PO SCH (08:34)
[2021-09-21 14:59] LABS: Hematocrit 23.6 % (37.5-50.1); Hemoglobin 7.2 g/dL (12.9-16.9)
[2021-09-22] MEDS: CeFAZolin 2,000 MG/120 ML BAG IVPB SCH ×3 (04:19→19:43)
[2021-09-22 05:38] LABS: Basophils % 0.5 %; Eosinophils # 0.3 K/mcL (0.0-0.6); Eosinophils % 3.1 %; Hematocrit 21.4 % (37.5-50.1); Hemoglobin 6.8 g/dL (12.9-16.9); Immature Granulocytes % 1.2 % (0-4); Lymphocytes % 11.9 %; Mean Corpuscular HGB Conc 31.8 g/dL (31.6-35.5); Mean Corpuscular Hemoglobin 27.3 pg (28.0-33.3); Mean Corpuscular Volume 85.9 fL (83.0-100.0); Mean Platelet Volume 9.8 fL (9.4-12.4); Monocytes # 0.8 K/mcL (0.0-1.3); Neutrophils # 6.1 K/mcL (1.6-8.9); Platelet Count 264 K/mcL (140-400); Red Blood Count 2.49 M/mcL (4.19-5.50); Red Cell Distribution Width 15.4 % (11.5-14.5); Segmented Neutrophils % 73.3 %; White Blood Count 8.3 K/mcL (4.3-11.1)
[2021-09-22] MEDS ORDERED: 0.9 % Sodium Chloride 250 ML IVC SCH (08:00)
[2021-09-22] MEDS ORDERED: 0.9 % Sodium Chloride 250 ML ONE (09:35)
[2021-09-22] MEDS: Furosemide 40 MG TABLET PO SCH (10:15)
[2021-09-22] MEDS: lisinopriL 5 MG TABLET PO SCH (10:15)
[2021-09-22] MEDS: *HR* Metformin 500 MG TABLET PO SCH ×2 (10:15→18:15)
[2021-09-22] MEDS: *HR* GlyBURIDE 5 MG TABLET PO SCH ×2 (10:15→18:15)
[2021-09-22] MEDS: carvediloL 25 MG TABLET PO SCH ×2 (10:15→18:15)
[2021-09-22] MEDS: Cyanocobalamin (B-12) 1,000 MCG TABLET PO SCH (10:15)
[2021-09-22] MEDS: *HR* Pioglitazone 45 MG TABLET PO SCH (10:15)
[2021-09-22] MEDS: Insulin LISPRO 300 UNITS/3 ML VIAL SUBQ SCH ×3 (10:16→18:16)
[2021-09-22 16:56] LABS: Hematocrit 24.8 % (37.5-50.1); Hemoglobin 7.7 g/dL (12.9-16.9)
[2021-09-22] MEDS: Insulin DETEMIR 100 UNIT/ML X5UNITS SUBQ SCH (18:15)
[2021-09-22] MEDS: Acetaminophen 325 MG TABLET PO PRN (19:40)
[2021-09-23] MEDS: Acetaminophen 325 MG TABLET PO PRN ×2 (03:39→20:24)
[2021-09-23] MEDS: CeFAZolin 2,000 MG/120 ML BAG IVPB SCH ×3 (03:55→20:22)
[2021-09-23 04:22] LABS: Basophils % 0.3 %; Eosinophils # 0.4 K/mcL (0.0-0.6); Eosinophils % 4.1 %; Hematocrit 24.7 % (37.5-50.1); Hemoglobin 7.7 g/dL (12.9-16.9); Immature Granulocytes % 1.1 % (0-4); Lymphocytes # 1.2 K/mcL (0.6-4.6); Lymphocytes % 12.4 %; Mean Corpuscular HGB Conc 31.2 g/dL (31.6-35.5); Mean Corpuscular Volume 86.7 fL (83.0-100.0); Mean Platelet Volume 10.2 fL (9.4-12.4); Monocytes # 0.9 K/mcL (0.0-1.3); Neutrophils # 6.8 K/mcL (1.6-8.9); Platelet Count 292 K/mcL (140-400); Red Blood Count 2.85 M/mcL (4.19-5.50); Red Cell Distribution Width 15.8 % (11.5-14.5); Segmented Neutrophils % 72.1 %; White Blood Count 9.4 K/mcL (4.3-11.1)
[2021-09-23 04:39] LABS: BUN/Creatinine Ratio 19 (6-26); Blood Urea Nitrogen 26 mg/dL (8-23); Carbon Dioxide 27 mEq/L (23-29); Chloride 104 mEq/L (98-107); Glucose 176 mg/dL (70-105); Osmolality,Calculated 287 (280-300); Potassium 4.1 mEq/L (3.5-5.1); Sodium 134 mEq/L (136-145); eGFR For African Americans > 60 (> 60); eGFR For Non-African Americans 53 (> 60)
[2021-09-23] MEDS: Cyanocobalamin (B-12) 1,000 MCG TABLET PO SCH (11:02)
[2021-09-23] MEDS: carvediloL 25 MG TABLET PO SCH ×2 (11:02→17:54)
[2021-09-23] MEDS: *HR* GlyBURIDE 5 MG TABLET PO SCH ×2 (11:02→17:54)
[2021-09-23] MEDS: *HR* Pioglitazone 45 MG TABLET PO SCH (11:02)
[2021-09-23] MEDS: *HR* Metformin 500 MG TABLET PO SCH ×2 (11:02→17:54)
[2021-09-23] MEDS: lisinopriL 5 MG TABLET PO SCH (11:02)
[2021-09-23] MEDS: Furosemide 40 MG TABLET PO SCH (11:02)
[2021-09-23] MEDS: Insulin LISPRO 300 UNITS/3 ML VIAL SUBQ SCH ×3 (11:03→20:18)
[2021-09-23] MEDS: Insulin DETEMIR 100 UNIT/ML X5UNITS SUBQ SCH (11:03)
[2021-09-23] MEDS ORDERED: Warfarin perPT PO PRN (18:00)
[2021-09-23] MEDS ORDERED: *HR* Warfarin 7.5 MG TABLET PO ONE (18:00)
[2021-09-24] MEDS: CeFAZolin 2,000 MG/120 ML BAG IVPB SCH ×3 (04:15→19:39)
[2021-09-24 05:21] LABS: Basophils # 0.1 K/mcL (0.0-0.2); Basophils % 0.6 %; Eosinophils # 0.4 K/mcL (0.0-0.6); Eosinophils % 4.7 %; Hematocrit 22.8 % (37.5-50.1); Hemoglobin 6.9 g/dL (12.9-16.9); Immature Granulocytes % 1.1 % (0-4); Lymphocytes % 12.3 %; Mean Corpuscular HGB Conc 30.3 g/dL (31.6-35.5); Mean Corpuscular Hemoglobin 26.5 pg (28.0-33.3); Mean Corpuscular Volume 87.7 fL (83.0-100.0); Mean Platelet Volume 10.2 fL (9.4-12.4); Monocytes # 0.9 K/mcL (0.0-1.3); Neutrophils # 6.1 K/mcL (1.6-8.9); Platelet Count 279 K/mcL (140-400); Red Cell Distribution Width 15.9 % (11.5-14.5); Segmented Neutrophils % 71.3 %; White Blood Count 8.5 K/mcL (4.3-11.1)
[2021-09-24 05:27] LABS: INR 1.1; Prothrombin Time 12.6 Seconds (9.4-12.1)
[2021-09-24] MEDS: Insulin LISPRO 300 UNITS/3 ML VIAL SUBQ SCH ×3 (09:04→16:31)
[2021-09-24] MEDS: carvediloL 25 MG TABLET PO SCH ×2 (09:05→16:31)
[2021-09-24] MEDS: lisinopriL 5 MG TABLET PO SCH (09:05)
[2021-09-24] MEDS: *HR* GlyBURIDE 5 MG TABLET PO SCH ×2 (09:05→16:31)
[2021-09-24] MEDS: Furosemide 40 MG TABLET PO SCH (09:05)
[2021-09-24] MEDS: *HR* Metformin 500 MG TABLET PO SCH ×2 (09:05→16:31)
[2021-09-24] MEDS: Cyanocobalamin (B-12) 1,000 MCG TABLET PO SCH (09:06)
[2021-09-24] MEDS: *HR* Pioglitazone 45 MG TABLET PO SCH (09:06)
[2021-09-24] MEDS: Insulin DETEMIR 100 UNIT/ML X5UNITS SUBQ SCH (09:15)
[2021-09-24] MEDS: Iron Sucrose Complex 200 MG in 0.9 % Sodium Chloride 100 ML IVPB SCH (10:56)
[2021-09-24 16:28] LABS: Hematocrit 26.2 % (37.5-50.1); Hemoglobin 8.2 g/dL (12.9-16.9)
[2021-09-25] MEDS: CeFAZolin 2,000 MG/120 ML BAG IVPB SCH (03:22)
[2021-09-25 07:56] VITALS: O2SAT 93
[2021-09-25 08:16] LABS: INR 1.1; Prothrombin Time 12.7 Seconds (9.4-12.1)
[2021-09-25] MEDS: Cyanocobalamin (B-12) 1,000 MCG TABLET PO SCH (08:39)
[2021-09-25] MEDS: *HR* Pioglitazone 45 MG TABLET PO SCH (08:40)
[2021-09-25] MEDS: Furosemide 40 MG TABLET PO SCH (08:40)
[2021-09-25] MEDS: *HR* Metformin 500 MG TABLET PO SCH (08:40)
[2021-09-25] MEDS: Iron Sucrose Complex 200 MG in 0.9 % Sodium Chloride 100 ML IVPB SCH (08:40)
[2021-09-25] MEDS: lisinopriL 5 MG TABLET PO SCH (08:40)
[2021-09-25] MEDS: carvediloL 25 MG TABLET PO SCH (08:40)
[2021-09-25] MEDS: *HR* GlyBURIDE 5 MG TABLET PO SCH (08:40)
[2021-09-25] MEDS: Insulin DETEMIR 100 UNIT/ML X5UNITS SUBQ SCH (08:49)
[2021-09-25] MEDS: Insulin LISPRO 300 UNITS/3 ML VIAL SUBQ SCH (08:49)
[2021-09-25 10:10] LABS: Influenza A PCR Negative (Negative); Influenza B PCR Negative (Negative); Resp. Syncytial Virus PCR Negative (Negative)
[2021-09-25 10:12] LABS: SARS-CoV-2 by PCR (In House) Negative (Negative)
[2021-09-25] MEDS ORDERED: FLU Vac QV 21-22 (6Month+)/PF 0.5 ML SYRINGE IM ONE (10:40)
[2021-09-25 11:25] VITALS: BP 131/70; PULSE 61; TEMP 97.8
== END 2021-09-25 12:17 | DRG 41 ==
LOC: 4WAOSI 10:45 → SDCAOSI 10:45 → 4WAOSI 18:56
PROVIDERS: ADMIT Podiatrist; ATTEND Podiatrist

== ENCOUNTER 2021-10-22 14:08 | Inpatient (IN) ==
[2021-10-22] MEDS ORDERED: *HR* OxyCODONE/APAP 5/325 TABLET PO ONE (14:29)
[2021-10-22 15:13] LABS: Basophils % 0.4 %; Eosinophils # 0.5 K/mcL (0.0-0.6); Eosinophils % 5.4 %; Hematocrit 26.6 % (37.5-50.1); Hemoglobin 8.2 g/dL (12.9-16.9); Lymphocytes # 0.9 K/mcL (0.6-4.6); Mean Corpuscular HGB Conc 30.8 g/dL (31.6-35.5); Mean Corpuscular Volume 87.5 fL (83.0-100.0); Mean Platelet Volume 9.7 fL (9.4-12.4); Monocytes # 0.7 K/mcL (0.0-1.3); Monocytes % 7.4 %; Neutrophils # 7.6 K/mcL (1.6-8.9); Platelet Count 362 K/mcL (140-400); Red Blood Count 3.04 M/mcL (4.19-5.50); Red Cell Distribution Width 16.4 % (11.5-14.5); Segmented Neutrophils % 76.8 %; White Blood Count 9.9 K/mcL (4.3-11.1)
[2021-10-22 15:20] LABS: BUN/Creatinine Ratio 20 (6-26); Blood Urea Nitrogen 28 mg/dL (8-23); Calcium 9.4 mg/dL (8.6-10.3); Carbon Dioxide 28 mEq/L (23-29); Chloride 101 mEq/L (98-107); Glucose 315 mg/dL (70-105); Osmolality,Calculated 294 (280-300); Potassium 4.7 mEq/L (3.5-5.1); Sodium 133 mEq/L (136-145); eGFR For African Americans > 60 (> 60); eGFR For Non-African Americans 50 (> 60)
[2021-10-22 15:24] LABS: C-Reactive Protein 24 mg/L (Less than 10)
[2021-10-22] MEDS ORDERED: Naloxone 0.4 MG/ML INJ IVP PRN (17:04)
[2021-10-22] MEDS ORDERED: D5% in Water 1,000 ML IVC PRN (17:07)
[2021-10-22] MEDS ORDERED: *HR* Dextrose 50 % in Water (Syg) 50 ML SYRINGE IVP PRN (17:07)
[2021-10-22] MEDS ORDERED: Dextrose 4 GM Chewable Tablets PO PRN ×2 (17:07)
[2021-10-22 21:02] LABS: INR 3.1; Prothrombin Time 34.8 Seconds (9.4-12.1)
[2021-10-22] MEDS: Piperacillin/Tazobactam 3.375 GM in 0.9 % Sodium Chloride Mini Bag 100 ML IVPB SCH (21:56)
[2021-10-22] MEDS: Insulin LISPRO 300 UNITS/3 ML VIAL SUBQ SCH (21:58)
[2021-10-22] MEDS: Aspirin Enteric Coated 81 MG Tablet PO SCH (21:59)
[2021-10-22] MEDS: carvediloL 25 MG TABLET PO SCH (22:01)
[2021-10-22] MEDS: *HR* Heparin 5,000 UNIT/ML VIAL SQ SCH (23:16)
[2021-10-23] MEDS: Piperacillin/Tazobactam 3.375 GM in 0.9 % Sodium Chloride Mini Bag 100 ML IVPB SCH ×3 (05:06→21:07)
[2021-10-23 06:34] LABS: Basophils % 0.4 %; Eosinophils # 0.6 K/mcL (0.0-0.6); Eosinophils % 4.9 %; Hematocrit 27.3 % (37.5-50.1); Hemoglobin 8.2 g/dL (12.9-16.9); Lymphocytes % 9.1 %; Mean Corpuscular Hemoglobin 25.9 pg (28.0-33.3); Mean Corpuscular Volume 86.1 fL (83.0-100.0); Mean Platelet Volume 9.6 fL (9.4-12.4); Monocytes # 0.9 K/mcL (0.0-1.3); Monocytes % 8.1 %; Neutrophils # 8.6 K/mcL (1.6-8.9); Platelet Count 375 K/mcL (140-400); Red Blood Count 3.17 M/mcL (4.19-5.50); Red Cell Distribution Width 16.3 % (11.5-14.5); Segmented Neutrophils % 76.5 %; White Blood Count 11.2 K/mcL (4.3-11.1)
[2021-10-23 06:43] LABS: Prothrombin Time 33.2 Seconds (9.4-12.1)
[2021-10-23 06:53] LABS: BUN/Creatinine Ratio 16 (6-26); Blood Urea Nitrogen 23 mg/dL (8-23); Calcium 9.9 mg/dL (8.6-10.3); Carbon Dioxide 27 mEq/L (23-29); Chloride 101 mEq/L (98-107); Glucose 202 mg/dL (70-105); Osmolality,Calculated 287 (280-300); Potassium 4.7 mEq/L (3.5-5.1); Sodium 134 mEq/L (136-145); eGFR For African Americans > 60 (> 60); eGFR For Non-African Americans 50 (> 60)
[2021-10-23] MEDS: *HR* Heparin 5,000 UNIT/ML VIAL SQ SCH ×3 (08:56→23:52)
[2021-10-23] MEDS: carvediloL 25 MG TABLET PO SCH ×2 (08:57→16:59)
[2021-10-23] MEDS: lisinopriL 5 MG TABLET PO SCH (08:57)
[2021-10-23] MEDS: Insulin LISPRO 300 UNITS/3 ML VIAL SUBQ SCH ×4 (08:58→21:08)
[2021-10-23] MEDS: Furosemide 40 MG TABLET PO SCH (09:12)
[2021-10-23] MEDS ORDERED: Ondansetron 4 MG/2 ML VIAL ONE (11:22)
[2021-10-23] MEDS ORDERED: Ondansetron 4 MG/2 ML VIAL IVP SCH (12:00)
[2021-10-23] MEDS ORDERED: Ondansetron 4 MG/2 ML VIAL IVP PRN (12:08)
[2021-10-23] MEDS ORDERED: *HR* Phytonadione 5 MG TABLET PO ONE (12:54)
[2021-10-23] MEDS: Aspirin Enteric Coated 81 MG Tablet PO SCH (21:07)
[2021-10-24] MEDS: Piperacillin/Tazobactam 3.375 GM in 0.9 % Sodium Chloride Mini Bag 100 ML IVPB SCH ×3 (04:43→21:40)
[2021-10-24 04:44] LABS: Calcium 9.5 mg/dL (8.6-10.3); Potassium 4.8 mEq/L (3.5-5.1)
[2021-10-24 04:47] LABS: Basophils % 0.4 %; Eosinophils # 0.6 K/mcL (0.0-0.6); Eosinophils % 5.5 %; Hematocrit 26.1 % (37.5-50.1); Hemoglobin 7.9 g/dL (12.9-16.9); Immature Granulocytes % 1.1 % (0-4); Lymphocytes # 1.4 K/mcL (0.6-4.6); Mean Corpuscular HGB Conc 30.3 g/dL (31.6-35.5); Mean Corpuscular Hemoglobin 26.3 pg (28.0-33.3); Monocytes % 8.7 %; Neutrophils # 8.2 K/mcL (1.6-8.9); Platelet Count 361 K/mcL (140-400); Red Cell Distribution Width 16.2 % (11.5-14.5); Segmented Neutrophils % 72.3 %; White Blood Count 11.3 K/mcL (4.3-11.1)
[2021-10-24] MEDS: Insulin LISPRO 300 UNITS/3 ML VIAL SUBQ SCH ×4 (08:31→19:51)
[2021-10-24] MEDS: lisinopriL 5 MG TABLET PO SCH (08:32)
[2021-10-24] MEDS: carvediloL 25 MG TABLET PO SCH ×2 (08:32→16:18)
[2021-10-24] MEDS: Furosemide 40 MG TABLET PO SCH (08:32)
[2021-10-24] MEDS: *HR* Heparin 5,000 UNIT/ML VIAL SQ SCH ×3 (08:32→23:09)
[2021-10-24] MEDS ORDERED: Insulin Regular, Human 100 UNIT/ML ONE (09:36)
[2021-10-24] MEDS ORDERED: *HR* Labetalol 20 MG/4 ML SYRINGE IVP ONE (09:43)
[2021-10-24] MEDS: Aspirin Enteric Coated 81 MG Tablet PO SCH (19:33)
[2021-10-25] MEDS: Piperacillin/Tazobactam 3.375 GM in 0.9 % Sodium Chloride Mini Bag 100 ML IVPB SCH ×3 (04:09→21:16)
[2021-10-25 05:10] LABS: Basophils % 0.4 %; Eosinophils # 0.4 K/mcL (0.0-0.6); Eosinophils % 3.7 %; Hematocrit 27.3 % (37.5-50.1); Immature Granulocytes % 0.9 % (0-4); Lymphocytes # 1.1 K/mcL (0.6-4.6); Lymphocytes % 11.1 %; Mean Corpuscular HGB Conc 29.3 g/dL (31.6-35.5); Mean Corpuscular Hemoglobin 25.5 pg (28.0-33.3); Mean Corpuscular Volume 86.9 fL (83.0-100.0); Mean Platelet Volume 9.7 fL (9.4-12.4); Monocytes # 0.8 K/mcL (0.0-1.3); Monocytes % 8.2 %; Neutrophils # 7.7 K/mcL (1.6-8.9); Platelet Count 412 K/mcL (140-400); Red Blood Count 3.14 M/mcL (4.19-5.50); Red Cell Distribution Width 16.1 % (11.5-14.5); Segmented Neutrophils % 75.7 %; White Blood Count 10.2 K/mcL (4.3-11.1)
[2021-10-25 05:17] LABS: INR 1.2; Prothrombin Time 13.3 Seconds (9.4-12.1)
[2021-10-25 05:31] LABS: Calcium 9.5 mg/dL (8.6-10.3); Potassium 4.9 mEq/L (3.5-5.1)
[2021-10-25 06:48] LABS: Estimated Average Glucose 146 mg/dl; Hemoglobin A1C 6.7 %
[2021-10-25] MEDS: Furosemide 40 MG TABLET PO SCH (08:08)
[2021-10-25] MEDS: lisinopriL 5 MG TABLET PO SCH (08:08)
[2021-10-25] MEDS: carvediloL 25 MG TABLET PO SCH ×2 (08:08→16:32)
[2021-10-25] MEDS: *HR* Heparin 5,000 UNIT/ML VIAL SQ SCH ×2 (08:09→16:32)
[2021-10-25] MEDS: Insulin LISPRO 300 UNITS/3 ML VIAL SUBQ SCH ×4 (08:09→20:57)
[2021-10-25] MEDS: Aspirin Enteric Coated 81 MG Tablet PO SCH (21:15)
[2021-10-26] MEDS: *HR* Heparin 5,000 UNIT/ML VIAL SQ SCH ×2 (00:01→10:15)
[2021-10-26 04:33] LABS: Calcium 9.3 mg/dL (8.6-10.3); Potassium 4.5 mEq/L (3.5-5.1)
[2021-10-26 04:37] LABS: Eosinophils % 3.5 %; Hemoglobin 7.4 g/dL (12.9-16.9); Immature Granulocytes % 1.1 % (0-4); Lymphocytes % 12.5 %; Mean Corpuscular HGB Conc 29.6 g/dL (31.6-35.5); Mean Corpuscular Volume 87.7 fL (83.0-100.0); Mean Platelet Volume 9.8 fL (9.4-12.4); Monocytes % 8.9 %; Platelet Count 388 K/mcL (140-400); Red Blood Count 2.85 M/mcL (4.19-5.50); Red Cell Distribution Width 16.1 % (11.5-14.5); Segmented Neutrophils % 73.7 %; White Blood Count 9.3 K/mcL (4.3-11.1)
[2021-10-26 04:38] LABS: Basophils % 0.3 %; Eosinophils # 0.3 K/mcL (0.0-0.6); Lymphocytes # 1.2 K/mcL (0.6-4.6); Monocytes # 0.8 K/mcL (0.0-1.3); Neutrophils # 6.9 K/mcL (1.6-8.9)
[2021-10-26 05:01] LABS: Folate 19.3 ng/mL (3.0-16.0)
[2021-10-26] MEDS: Piperacillin/Tazobactam 3.375 GM in 0.9 % Sodium Chloride Mini Bag 100 ML IVPB SCH ×2 (05:04→14:50)
[2021-10-26 05:07] LABS: Vitamin B12 > 1500 pg/mL (250-1100)
[2021-10-26] MEDS ORDERED: Iron Sucrose Complex 250 MG in 0.9 % Sodium Chloride 250 ML IVPB SCH (09:00)
[2021-10-26] MEDS: carvediloL 25 MG TABLET PO SCH (10:10)
[2021-10-26] MEDS: lisinopriL 5 MG TABLET PO SCH (10:10)
[2021-10-26] MEDS: Insulin LISPRO 300 UNITS/3 ML VIAL SUBQ SCH ×2 (10:10→12:04)
[2021-10-26] MEDS ORDERED: Ondansetron 4 MG/2 ML VIAL ONE (14:49)
[2021-10-26] MEDS ORDERED: *HR* Rocuronium Bromide 50 MG/5 ML VIAL ONE ×2 (14:49→16:48)
[2021-10-26] MEDS ORDERED: Lidocaine -MPF 4% 5 ML AMPUL ONE (14:49)
[2021-10-26] MEDS ORDERED: Lidocaine -MPF 2% 5 ML VIAL ONE (14:49)
[2021-10-26] MEDS ORDERED: *HR* Succinylcholine 200 MG/10 ML VIAL IVP ONE (14:49)
[2021-10-26] MEDS ORDERED: *HR* FentaNYL (PF) 100 MCG/2 ML VIAL ONE (14:49)
[2021-10-26] MEDS ORDERED: Vancomycin 1,000 MG, Sodium Chloride IRRigation 1,000 ML IR ONE (15:55)
[2021-10-26] MEDS ORDERED: EPHEDrine 50 MG/ML VIAL ONE (16:34)
[2021-10-26] MEDS ORDERED: *HR* Vasopressin 20 UNIT/ML VIAL ONE (16:42)
[2021-10-26] MEDS ORDERED: *HR* Phenylephrine 10 MG/ML VIAL ONE (17:39)
[2021-10-26] MEDS ORDERED: Albumin Human 5% 12.5 GM/250 ML IV.SOLN ONE (18:26)
[2021-10-26] MEDS ORDERED: Pregabalin 75 MG CAPSULE PO ONE (19:32)
[2021-10-26] MEDS ORDERED: Famotidine 20 MG/2 ML VIAL IVP ONE (19:32)
[2021-10-26] MEDS ORDERED: Promethazine Syrup 6.25 MG/5 ML PO PRN (19:32)
[2021-10-26] MEDS ORDERED: *HR* HYDROmorphone (PF) 1 MG/ML SYRINGE IVP PRN (19:32)
[2021-10-26] MEDS ORDERED: *HR* OxyCODONE Immed Rel 5 MG TABLET PO PRN (19:32)
[2021-10-26] MEDS ORDERED: Ketorolac 30 MG/ML VIAL IVP PRN (19:32)
[2021-10-26] MEDS ORDERED: Acetaminophen IV 1,000 MG/100 ML BAG IVPB ONE (19:32)
[2021-10-26] MEDS ORDERED: *HR* HYDROmorphone 2 MG TABLET PO PRN (19:32)
[2021-10-26] MEDS ORDERED: *HR* Labetalol 20 MG/4 ML SYRINGE IVP PRN (19:32)
[2021-10-26] MEDS ORDERED: Dextrose 4 GM Chewable Tablets PO PRN ×2 (21:34)
[2021-10-26] MEDS ORDERED: Acetaminophen 325 MG TABLET PO PRN (21:34)
[2021-10-26] MEDS ORDERED: D5% in Water 1,000 ML IVC PRN (21:34)
[2021-10-26] MEDS ORDERED: *HR* Dextrose 50 % in Water (Syg) 50 ML SYRINGE IVP PRN (21:34)
[2021-10-26] MEDS ORDERED: Ondansetron 4 MG/2 ML VIAL IVP PRN (21:34)
[2021-10-26] MEDS ORDERED: Naloxone 0.4 MG/ML INJ IVP PRN ×2 (21:34)
[2021-10-27] MEDS: *HR* HYDROcodone/Acet 5/325 mg TABLET PO PRN ×3 (01:13→16:21)
[2021-10-27] MEDS: *HR* Heparin 5,000 UNIT/ML VIAL SQ SCH ×2 (01:13→09:51)
[2021-10-27 05:17] LABS: Basophils % 0.1 %; Hematocrit 20.4 % (37.5-50.1); Hemoglobin 6.1 g/dL (12.9-16.9); Immature Granulocytes % 0.8 % (0-4); Lymphocytes # 0.5 K/mcL (0.6-4.6); Lymphocytes % 4.9 %; Mean Corpuscular HGB Conc 29.9 g/dL (31.6-35.5); Mean Corpuscular Hemoglobin 26.3 pg (28.0-33.3); Mean Corpuscular Volume 87.9 fL (83.0-100.0); Mean Platelet Volume 9.4 fL (9.4-12.4); Monocytes # 0.3 K/mcL (0.0-1.3); Monocytes % 3.1 %; Neutrophils # 9.4 K/mcL (1.6-8.9); Platelet Count 340 K/mcL (140-400); Red Blood Count 2.32 M/mcL (4.19-5.50); Red Cell Distribution Width 16.1 % (11.5-14.5); Segmented Neutrophils % 91.1 %; White Blood Count 10.3 K/mcL (4.3-11.1)
[2021-10-27 05:29] LABS: Calcium 9.1 mg/dL (8.6-10.3); Magnesium 1.9 mg/dL (1.6-2.6); Potassium 4.9 mEq/L (3.5-5.1)
[2021-10-27] MEDS: Piperacillin/Tazobactam 3.375 GM in 0.9 % Sodium Chloride Mini Bag 100 ML IVPB SCH ×3 (06:08→21:12)
[2021-10-27] MEDS ORDERED: 0.9 % Sodium Chloride 250 ML IVC SCH ×2 (07:45→17:00)
[2021-10-27] MEDS ORDERED: carvediloL 25 MG TABLET PO SCH (08:00)
[2021-10-27] MEDS: Insulin LISPRO 300 UNITS/3 ML VIAL SUBQ SCH ×3 (08:36→18:27)
[2021-10-27] MEDS ORDERED: Furosemide 40 MG TABLET PO SCH (09:00)
[2021-10-27] MEDS ORDERED: Iron Sucrose Complex 250 MG in 0.9 % Sodium Chloride 250 ML IVPB SCH (09:00)
[2021-10-27] MEDS: lisinopriL 5 MG TABLET PO SCH (09:51)
[2021-10-27] MEDS ORDERED: Ringers Solution, Lactated 1,000 ML ONE (12:54)
[2021-10-27] MEDS ORDERED: Ringers Solution, Lactated 1,000 ML IVC ONE (13:42)
[2021-10-27 16:28] LABS: Hematocrit 21.6 % (37.5-50.1); Hemoglobin 6.5 g/dL (12.9-16.9)
[2021-10-27] MEDS ORDERED: Insulin LISPRO 300 UNITS/3 ML VIAL SUBQ SCH (21:00)
[2021-10-27] MEDS: *HR* OxyCODONE Immed Rel 5 MG TABLET PO PRN (21:09)
[2021-10-27] MEDS: Aspirin Enteric Coated 81 MG Tablet PO SCH (21:09)
[2021-10-27 22:09] LABS: Hematocrit 22.5 % (37.5-50.1); Hemoglobin 6.7 g/dL (12.9-16.9)
[2021-10-28 04:22] LABS: Basophils % 0.4 %; Eosinophils # 0.1 K/mcL (0.0-0.6); Eosinophils % 0.8 %; Hemoglobin 7.2 g/dL (12.9-16.9); Immature Granulocytes % 1.6 % (0-4); Lymphocytes # 1.7 K/mcL (0.6-4.6); Lymphocytes % 14.9 %; Mean Corpuscular Volume 89.9 fL (83.0-100.0); Mean Platelet Volume 9.3 fL (9.4-12.4); Monocytes # 0.8 K/mcL (0.0-1.3); Neutrophils # 8.5 K/mcL (1.6-8.9); Platelet Count 369 K/mcL (140-400); Red Blood Count 2.67 M/mcL (4.19-5.50); Segmented Neutrophils % 75.3 %; White Blood Count 11.2 K/mcL (4.3-11.1)
[2021-10-28 04:39] LABS: Calcium 9.1 mg/dL (8.6-10.3); Magnesium 2.2 mg/dL (1.6-2.6); Potassium 4.4 mEq/L (3.5-5.1)
[2021-10-28] MEDS: *HR* HYDROcodone/Acet 5/325 mg TABLET PO PRN (04:55)
[2021-10-28] MEDS: Piperacillin/Tazobactam 3.375 GM in 0.9 % Sodium Chloride Mini Bag 100 ML IVPB SCH ×3 (04:55→20:26)
[2021-10-28] MEDS: Insulin LISPRO 300 UNITS/3 ML VIAL SUBQ SCH ×3 (08:45→16:27)
[2021-10-28] MEDS: Insulin DETEMIR 100 UNIT/ML X5UNITS SUBQ SCH ×2 (08:45→20:24)
[2021-10-28] MEDS: *HR* OxyCODONE Immed Rel 5 MG TABLET PO PRN (20:23)
[2021-10-28] MEDS: Aspirin Enteric Coated 81 MG Tablet PO SCH (20:23)
[2021-10-29] MEDS: Piperacillin/Tazobactam 3.375 GM in 0.9 % Sodium Chloride Mini Bag 100 ML IVPB SCH ×4 (04:46→22:48)
[2021-10-29 04:49] LABS: Basophils % 0.4 %; Eosinophils # 0.2 K/mcL (0.0-0.6); Eosinophils % 2.8 %; Immature Granulocytes % 1.1 % (0-4); Lymphocytes # 1.2 K/mcL (0.6-4.6); Lymphocytes % 14.3 %; Mean Corpuscular HGB Conc 30.4 g/dL (31.6-35.5); Mean Corpuscular Hemoglobin 27.1 pg (28.0-33.3); Mean Corpuscular Volume 89.1 fL (83.0-100.0); Mean Platelet Volume 9.2 fL (9.4-12.4); Monocytes # 0.8 K/mcL (0.0-1.3); Monocytes % 9.2 %; Neutrophils # 6.1 K/mcL (1.6-8.9); Platelet Count 324 K/mcL (140-400); Red Blood Count 2.58 M/mcL (4.19-5.50); Red Cell Distribution Width 16.5 % (11.5-14.5); Segmented Neutrophils % 72.2 %; White Blood Count 8.5 K/mcL (4.3-11.1)
[2021-10-29 05:04] LABS: BUN/Creatinine Ratio 12 (6-26); Blood Urea Nitrogen 14 mg/dL (8-23); Calcium 9.4 mg/dL (8.6-10.3); Carbon Dioxide 26 mEq/L (23-29); Chloride 106 mEq/L (98-107); Glucose 210 mg/dL (70-105); Magnesium 1.7 mg/dL (1.6-2.6); Osmolality,Calculated 291 (280-300); Potassium 4.4 mEq/L (3.5-5.1); Sodium 137 mEq/L (136-145); eGFR For African Americans > 60 (> 60); eGFR For Non-African Americans > 60 (> 60)
[2021-10-29] MEDS: Insulin LISPRO 300 UNITS/3 ML VIAL SUBQ SCH ×5 (07:28→16:40)
[2021-10-29] MEDS: *HR* Heparin 5,000 UNIT/ML VIAL SQ SCH (07:28)
[2021-10-29] MEDS: carvediloL 25 MG TABLET PO SCH (07:29)
[2021-10-29] MEDS: Aspirin Enteric Coated 81 MG Tablet PO SCH ×2 (07:29→22:47)
[2021-10-29] MEDS: carvediloL 6.25 MG TABLET PO SCH ×2 (08:09→16:43)
[2021-10-29] MEDS: Insulin DETEMIR 100 UNIT/ML X5UNITS SUBQ SCH ×2 (08:16→23:14)
[2021-10-29] MEDS: *HR* HYDROcodone/Acet 5/325 mg TABLET PO PRN (22:47)
[2021-10-30] MEDS: Piperacillin/Tazobactam 3.375 GM in 0.9 % Sodium Chloride Mini Bag 100 ML IVPB SCH ×2 (05:51→11:55)
[2021-10-30 06:24] LABS: Basophils % 0.6 %; Eosinophils # 0.3 K/mcL (0.0-0.6); Eosinophils % 4.2 %; Hematocrit 22.6 % (37.5-50.1); Immature Granulocytes % 1.1 % (0-4); Lymphocytes # 1.3 K/mcL (0.6-4.6); Lymphocytes % 18.6 %; Mean Corpuscular Hemoglobin 27.8 pg (28.0-33.3); Mean Corpuscular Volume 89.7 fL (83.0-100.0); Monocytes # 0.6 K/mcL (0.0-1.3); Monocytes % 8.7 %; Neutrophils # 4.8 K/mcL (1.6-8.9); Platelet Count 305 K/mcL (140-400); Red Blood Count 2.52 M/mcL (4.19-5.50); Red Cell Distribution Width 16.7 % (11.5-14.5); Segmented Neutrophils % 66.8 %; White Blood Count 7.2 K/mcL (4.3-11.1)
[2021-10-30 07:26] LABS: BUN/Creatinine Ratio 9 (6-26); Blood Urea Nitrogen 10 mg/dL (8-23); Calcium 9.5 mg/dL (8.6-10.3); Carbon Dioxide 27 mEq/L (23-29); Chloride 107 mEq/L (98-107); Glucose 216 mg/dL (70-105); Magnesium 1.6 mg/dL (1.6-2.6); Osmolality,Calculated 292 (280-300); Potassium 4.4 mEq/L (3.5-5.1); Sodium 138 mEq/L (136-145); eGFR For African Americans > 60 (> 60); eGFR For Non-African Americans > 60 (> 60)
[2021-10-30] MEDS: Insulin LISPRO 300 UNITS/3 ML VIAL SUBQ SCH ×3 (08:27→17:31)
[2021-10-30] MEDS: Insulin DETEMIR 100 UNIT/ML X5UNITS SUBQ SCH ×2 (08:27→22:19)
[2021-10-30] MEDS: carvediloL 6.25 MG TABLET PO SCH ×2 (08:28→17:33)
[2021-10-30] MEDS: lisinopriL 5 MG TABLET PO SCH (10:14)
[2021-10-30] MEDS ORDERED: Iron Sucrose Complex 200 MG in 0.9 % Sodium Chloride 100 ML IVPB ONE (17:00)
[2021-10-30] MEDS: Aspirin Enteric Coated 81 MG Tablet PO SCH (22:19)
[2021-10-31 06:37] LABS: Basophils % 0.4 %; Eosinophils # 0.3 K/mcL (0.0-0.6); Eosinophils % 4.5 %; Hematocrit 23.5 % (37.5-50.1); Immature Granulocytes % 1.1 % (0-4); Lymphocytes # 1.3 K/mcL (0.6-4.6); Mean Corpuscular HGB Conc 29.8 g/dL (31.6-35.5); Mean Corpuscular Hemoglobin 26.1 pg (28.0-33.3); Mean Corpuscular Volume 87.7 fL (83.0-100.0); Mean Platelet Volume 9.1 fL (9.4-12.4); Monocytes # 0.5 K/mcL (0.0-1.3); Monocytes % 7.5 %; Neutrophils # 4.8 K/mcL (1.6-8.9); Nucleated Red Blood Cells 0.3 /100 WBC (0); Platelet Count 310 K/mcL (140-400); Red Blood Count 2.68 M/mcL (4.19-5.50); Red Cell Distribution Width 16.9 % (11.5-14.5); Segmented Neutrophils % 68.5 %
[2021-10-31 06:45] LABS: BUN/Creatinine Ratio 7 (6-26); Blood Urea Nitrogen 7 mg/dL (8-23); Calcium 9.6 mg/dL (8.6-10.3); Carbon Dioxide 26 mEq/L (23-29); Chloride 107 mEq/L (98-107); Glucose 186 mg/dL (70-105); Magnesium 1.5 mg/dL (1.6-2.6); Osmolality,Calculated 289 (280-300); Potassium 4.4 mEq/L (3.5-5.1); Sodium 138 mEq/L (136-145); eGFR For African Americans > 60 (> 60); eGFR For Non-African Americans > 60 (> 60)
[2021-10-31] MEDS: lisinopriL 5 MG TABLET PO SCH (07:42)
[2021-10-31] MEDS: carvediloL 6.25 MG TABLET PO SCH (07:42)
[2021-10-31] MEDS: Insulin LISPRO 300 UNITS/3 ML VIAL SUBQ SCH ×2 (07:43→12:19)
[2021-10-31] MEDS: Insulin DETEMIR 100 UNIT/ML X5UNITS SUBQ SCH (07:55)
[2021-10-31 12:23] LABS: Adenovirus Not Detected (Not Detect); Bordetella Pertussis Not Detected (Not Detect); Chlamydophila pneumoniae Not Detected (Not Detect); Coronavirus 229E Not Detected (Not Detect); Coronavirus HKU1 Not Detected (Not Detect); Coronavirus NL63 Not Detected (Not Detect); Coronavirus OC43 Not Detected (Not Detect); Human Metapneumovirus Not Detected (Not Detect); Human Rhinovirus/Enterovirus Not Detected (Not Detect); Influenza A Subtype 2009 H1 Not Detected (Not Detect); Influenza B Not Detected (Not Detect); Mycoplasma pneumoniae Not Detected (Not Detect); Parainfluenza Virus 1 Not Detected (Not Detect); Parainfluenza Virus 2 Not Detected (Not Detect); Parainfluenza Virus 3 Not Detected (Not Detect); Parainfluenza Virus 4 Not Detected (Not Detect); Respiratory Syncytial Virus Not Detected (Not Detect); SARS-CoV-2 Not Detected (Not Detect)
[2021-10-31 14:13] VITALS: BP 151/61; PULSE 65; TEMP 98.1; O2SAT 94
== END 2021-10-31 16:46 | DRG 617 ==
LOC: 4WAOSI 14:08 → EMEROOARM 14:08 → 4WAOSI 17:04 → SUATTDRO 17:15 → 4WAOSI 17:35
PROVIDERS: ADMIT Hospitalist; ATTEND Pharmacist